=== PATIENT | female | born 1940 | race Caucasian/White ===

== ENCOUNTER 2020-02-18 09:29 | Outpatient (CLI) | payer MEDICARE, OTHER, SELFPAY ==
--- NOTE | ~2020-02-18 | XR_ITS ---
EXAMINATION: XR chest 2V 02/18/2020 09:53 INDICATION: Shortness of breath PROCEDURE: PA and lateral views of the chest COMPARISON: Comparison to multiple prior studies sequentially, with oldest reviewed study dated 05/22. FINDINGS: The lungs are clear. The cardiomediastinal silhouette is within normal limits. There are no pleural effusions. There is no pneumothorax suspected. IMPRESSION: 1: NO ACUTE CARDIOPULMONARY DISEASE. Reviewed, dictated and finalized at location A.
== END 2020-02-18 09:30 | disposition home or self-care (01) ==
PROVIDERS: PCP Family Medicine; Visit Provider Family Medicine
DX: R06.02 Shortness of breath (principal)
CPT/HCPCS: 71046

== ENCOUNTER 2020-02-25 02:59 | Emergency (ER) | payer MEDICARE, OTHER, SELFPAY ==
--- NOTE | ~2020-02-25 | XR_ITS ---
EXAMINATION: XR hip LT 2V w AP pelvis INDICATION: Left-sided groin pain TECHNIQUE: AP view of the pelvis and two views of the left hip are obtained. COMPARISON: None available FINDINGS: Bone alignment is normal. There is no fracture. The bowel gas pattern is normal. Lumbar spo ndylosis is noted. IMPRESSION: 1. No acute osseous abnormality. Reviewed, dictated and finalized at location A.
--- NOTE | ~2020-02-25 | CT_ITS ---
EXAMINATION: CT abdomen pelvis w con INDICATION: Left groin pain TECHNIQUE: Computed tomographic images of the abdomen and pelvis were obtained after the administrati on of 100 cc of Omnipaque 350 intravenous contrast. The dose-length product (DLP) was 529.79 mGy-cm. Automated exposure control and iterative reconstruction technique were employed. COMPARISON: 05/16/2015 FINDINGS: The lung bases are clear. The heart size is normal. The gallbladder is surgically absent. T here is mild enlargement of the common bile duct and central intrahepatic ducts which is likely due t o post cholecystectomy state. There is a 2.1 cm hyperenhancing lesion in the right hepatic lobe which is not significantly changed in size since the comparison CT, most consistent with a benign lesion s uch as a flash filling hemangioma or focal nodular hyperplasia. The spleen, pancreas, and adrenal gla nds are normal. There is an 8 mm cyst of the right kidney. The left kidney is unremarkable. There is calcified atherosclerosis of the aorta and many of the other arteries. No pathologically enlarged abd ominal or pelvic lymph nodes are identified. There is no free intraperitoneal gas or evidence of linda l obstruction. There is moderate lumbar spondylosis. IMPRESSION: 1. No CT correlate for the patient's symptoms. Reviewed, dictated and finalized at location A.
[2020-02-25 03:05] VITALS: BP 181/75; PULSE 55; RESP 20; TEMP 36.5; O2SAT 100
--- NOTE | 2020-02-25 03:25 | ED.EXTPRO ---
HPI - Extremity Problem General Chief complaint: Extremity Problem,Nontraumatic <Nandini Sanz MD - Last Filed: 02/28/20 09:49> Stated complaint: Left leg pain <Nandini Sanz MD - Last Filed: 02/28/20 09:49> Time Seen by Provider: 02/25/20 03:09 <Nandini Sanz MD - Last Filed: 02/28/20 09:49> Source: patient <Nandini Sanz MD - Last Filed: 02/28/20 09:49> Mode of arrival: ambulatory <Nandini Sanz MD - Last Filed: 02/28/20 09:49> Limitations: no limitations <Nandini Sanz MD - Last Filed: 02/28/20 09:49> History of Present Illness HPI Narrative: This patient is an 79 year old female who presents for evaluation of left groin pain. She reports she developed pain to her left groin yesterday. She states her pain has gotten worse and it is making it difficulty to walk. She states she could not sleep so she came to the ER. She took ibuprofen for her pain last night. Her pain currently is not as bad but she rates pain 8/10. <Nandini Sanz MD - Last Filed: 02/28/20 09:49> Related Data Allergies/Adverse reactions: Allergies Allergy/AdvReac Type Severity Reaction Status Date / Time No Known Allergies Allergy Mild Verified 02/25/20 03:11 <Nandini Sanz MD - Last Filed: 02/28/20 09:49> Review of Systems Review of Systems: All systems reviewed & are unremarkable except as noted in HPI and below <Nandini Sanz MD - Last Filed: 02/28/20 09:49> Constitutional: Constitutional: Denies chills and Denies fever(s) <Nandini Sanz MD - Last Filed: 02/28/20 09:49> Respiratory: Respiratory: Denies cough and Denies dyspnea <Nandini Sanz MD - Last Filed: 02/28/20 09:49> Gastrointestinal: Gastrointestinal: Denies abdominal pain, Denies nausea and Denies vomiting <Nandini Sanz MD - Last Filed: 02/28/20 09:49> Genitourinary: Genitourinary: Denies hematuria and Denies nocturia <Nandini Sanz MD - Last Filed: 02/28/20 09:49> [facility] Past Medical History Medical History: Medical History (Updated 02/26/20 @ 00:00 by Background Daemon) Patient denies medical problems <Nandini Sanz MD - Last Filed: 02/28/20 09:49> Surgical History Surgical History: Surgical History (Updated 02/25/20 @ 03:27 by Nandini Sanz MD) Hx of cholecystectomy <Nandini Sanz MD - Last Filed: 02/28/20 09:49> Exam Const: General: alert <Nandini Sanz MD - Last Filed: 02/28/20 09:49> Orientation/consciousness: patient oriented x3 <Nandini Sanz MD - Last Filed: 02/28/20 09:49> HENMT: Head: normocephalic and atraumatic <Nandini Sanz MD - Last Filed: 02/28/20 09:49> Face and sinus: face symmetric <Nandini Sanz MD - Last Filed: 02/28/20 09:49> Eyes: EOM: EOMs intact bilaterally <Nandini Sanz MD - Last Filed: 02/28/20 09:49> Resp: Effort & Inspection: normal respiratory effort and no retractions <Nandini Sanz MD - Last Filed: 02/28/20 09:49> Auscultation: clear to auscultation bilaterally <Nandini Sanz MD - Last Filed: 02/28/20 09:49> Cardio: Rate: regular rate <Nandini Sanz MD - Last Filed: 02/28/20 09:49> Rhythm: regular rhythm <Nandini Sanz MD - Last Filed: 02/28/20 09:49> Heart sounds: no murmurs <Nandini Sanz MD - Last Filed: 02/28/20 09:49> Skin: General skin exam: normal color <Nandini Sanz MD - Last Filed: 02/28/20 09:49> Rashes: no rashes <Nandini Sanz MD - Last Filed: 02/28/20 09:49> Neuro: General: patient oriented x3 and moves all extremities <Nandini Sanz MD - Last Filed: 02/28/20 09:49> Extrem: General: no pedal edema <Nandini Sanz MD - Last Filed: 02/28/20 09:49> Other: TTP left groin, but no swelling, no lymphadenopathy, no hernia, pain with ROM of left hip. strong palpable pedal pulses bilaterally <Nandini Sanz MD - Last Filed: 02/28/20 09:49> Psych: Mental Status: mental status grossly normal <Nandini Sanz
[2020-02-25] MEDS: KETOROLAC 15 MG/ML VIAL (*BKC) IV PUSH (03:42)
[2020-02-25 03:48] VITALS: BP 152/68; PULSE 55; RESP 20; O2SAT 100
[2020-02-25 04:08] LABS: Basophils Absolute Auto 0.1 K/mm3 (0.0-0.1); Basophils Percent Auto 0.6 % (0.2-1.2); Eosinophils Absolute Auto 0.3 K/mm3 (0-0.3); Eosinophils Percent Auto 3.8 % (0-4.4); Hematocrit 37.2 % (37.0-47.0); Hemoglobin 12.6 g/dL (12.0-15.0); Immature Granulocyte Absolute 0.02 K/mm3 (0.00-0.031); Immature Granulocyte Percent A 0.2 % (0-0.5); Lymphocytes Absolute Auto 2.67 K/mm3 (0.9-3.2); Mean Corpuscular HGB Conc 33.9 g/dl (32-36); Mean Corpuscular Hemoglobin 29.7 pg (26-34); Mean Corpuscular Volume 87.7 fl (80-100); Mean Platelet Volume 10.2 fl (7.4-10.4); Monocytes Absolute Auto 0.8 K/mm3 (0.1-0.6); Monocytes Percent Auto 9.1 % (2.6-8.5); Neutrophils Percent Auto 56.3 % (45.5-73.1); Platelet Count Result 224 k/mm3 (150-375); Red Blood Count 4.24 M/mm3 (4.2-5.4); White Blood Count 8.9 K/mm3 (4.5-10.0)
[2020-02-25 04:22] LABS: Add Urine Microscopic? YES; Appearance Urine Clear (Clear); Bacteria Urine 1+ /hpf; Bilirubin Urine Negative (Negative); Blood Urine Negative (Negative); Color Urine Yellow (Yellow); Glucose Urine UA Negative (Negative); Ketones Urine Negative (Negative); Leukocyte Esterase Ur 2+ LEU/UL (Negative); Mucus Urine Rare /lpf; Nitrate Urine Negative (Negative); Protein Urine Negative (Negative); Specific Grav Ur 1.021 (1.001-1.035); Squamous Epithelial Cell Urine Many /hpf (Few); Urobilinogen Urine Negative mg/dL (<2.0); WBC Urine 31-50 /hpf
[2020-02-25 04:29] LABS: Alanine Aminotransferase 12 U/L (4-35); Albumin Level 3.5 g/dL (3.5-5.1); Alkaline Phosphatase 50 U/L (38-126); Anion Gap 5 mmol/L (8-16); Aspartate Amino Transferase 15 U/L (14-36); Bilirubin,Total 0.3 mg/dL (0.2-1.3); Blood Urea Nitrogen 19 mg/dL (7-17); CRP 1.7 mg/dL (<1.0); Calcium 10.8 mg/dL (8.4-10.2); Carbon Dioxide 30 mmol/L (22-30); Chloride 102 mmol/L (98-107); Estimated Glomerular Filt Rate 60; Glucose 108 mg/dL (65-105); Potassium 3.2 mmol/L (3.4-5.0); Sodium 137 mmol/L (137-145)
[2020-02-25 05:11] VITALS: BP 132/89; PULSE 52; RESP 20; O2SAT 100
[2020-02-25] MEDS: MORPHINE SULFATE 4 MG/ML INJ IV PUSH (07:00)
[2020-02-25] MEDS: ONDANSETRON INJ 4 MG/2 ML VIAL IV PUSH (07:00)
[2020-02-25 07:02] VITALS: BP 176/58; PULSE 50; RESP 20; O2SAT 100
[2020-02-25 09:06] VITALS: BP 128/53; PULSE 50; RESP 16; O2SAT 100
== END 2020-02-25 09:08 | disposition home or self-care (01) ==
PROVIDERS: General Practice; Emergency Provider Emergency Medicine; PCP Family Medicine
DX: R10.32 Left lower quadrant pain (principal)
CPT/HCPCS: 36415; 73502; 74177; 80053; 81001; 85025; 86140; 87077; 87086; 87088; 87186; 96365; 96375; 99284; J0131; J1885; J2270; J2405; Q9967

== ENCOUNTER 2020-06-11 07:36 | Outpatient (CLI) | payer MEDICARE, OTHER, SELFPAY ==
--- NOTE | 2020-06-11 08:01 | ECG_ITS ---
Measurements Intervals [place] Rate: 48 P: 69 [place]: 154 QRS: 33 QRSD: 84 T: 65 QT: 415 QTc: 372 Interpretive Statements SINUS BRADYCARDIA EARLY PRECORDIAL R/S TRANSITION BORDERLINE T WAVE ABNORMALITY- ANTERIOR LEADS BASELINE ARTIFACT- III, V3-V6 ABNORMAL ECG Electronically Signed On 06-11-2020 8:09:05 ADMINISTRATIVE COORDINATOR by Mac Miles D.O.
== END 2020-06-11 07:37 | disposition home or self-care (01) ==
PROVIDERS: PCP Family Medicine; Visit Provider Family Medicine
DX: R06.00 Dyspnea, unspecified (principal); R94.31 Abnormal electrocardiogram [ECG] [EKG]
CPT/HCPCS: 93005

== ENCOUNTER 2020-07-17 14:05 | Outpatient (CLI) | payer MEDICARE, OTHER, SELFPAY ==
--- NOTE | 2020-07-22 13:27 | WPDPFTINT ---
PFT Interpretation PFT Interpretation: This PFT met all criteria for ATS standards and reproducibility FEV/FVC post bronchodilator 78% FEV1 117% FVC 100% TLC 88% RV 72% RV/TLC 36% DLCO 85% when adjusted for alveolar volume but not adjusted for hemoglobin Flow volume loops were normal Impression: Normal PFT. Clinical correlation is advised.
== END 2020-07-17 14:06 | disposition home or self-care (01) ==
LOC: ANHPFT 14:06
PROVIDERS: Family Provider Family Medicine; PCP Family Medicine; Visit Provider Family Medicine
DX: R06.02 Shortness of breath (principal)
CPT/HCPCS: 94060; 94726; 94729

== ENCOUNTER 2021-01-17 12:02 | Emergency (ER) | payer MEDICARE, OTHER, SELFPAY ==
--- NOTE | ~2021-01-17 | XR_ITS ---
EXAMINATION: XR chest 2V EXAM DATE: 01/17/2021 13:02 INDICATION: Difficulty breathing, history of asthma. TECHNIQUE: Frontal and lateral projections of the chest obtained and reviewed. Comparison is made to prior examination from 02/18/2020. FINDINGS: The lungs are clear. There are no pleural effusions. The cardiomediastinal silhouette is within normal limits. There is no pneumothorax suspected. The bones and soft tissues are unremarkab le. IMPRESSION: No acute cardiopulmonary findings. Reviewed, dictated and finalized at location B.
--- NOTE | ~2021-01-17 | CT_ITS ---
EXAMINATION: CTA chest PE protocol EXAM DATE: 01/17/2021 15:33 INDICATION: Shortness of breath, elevated d-dimer. Skin cancer. TECHNIQUE: Spiral CTA of the chest (pulmonary arteries) was performed with 100 cc Omnipaque 350 intr avenous contrast injection. Images were acquired during the pulmonary arterial phase. Coronal maxi mum intensity projection 3D-reconstructions were created by the technologist on dedicated workstation . Axial, coronal and sagittal reformatted images were reviewed. The dose-length product (DLP) for t his examination was 375.31 mGy-cm. The exposure was tailored according to patient size (auto mA exp osure control), and iterative reconstruction (ASIR) was used as additional dose reduction technique. There is no prior study for comparison. FINDINGS: Pulmonary arteries are well opacified and without intraluminal filling defects. No thora cic aortic dissection. The lungs are clear. There are no pleural or pericardial effusions. Trach eobronchial tree is patent. There is no mediastinal, hilar or axillary lymphadenopathy. There is no pneumothorax. Heart normal in size. There is moderate coronary arterial calcification, arteria l sclerosis. Right liver lobe lesion with discontinuous peripheral nodular enhancement measuring 2.3 cm, a hemangioma. Smaller fluid density lesion consistent with cyst. There is small sliding gastroes ophageal hiatal hernia. There is thoracic spondylosis without osteoblastic or osteolytic lesions román ntified. IMPRESSION: 1. No pulmonary emboli or acute cardiopulmonary findings. 2. Mild emphysema. 3. Liver hemangioma. Reviewed, dictated and finalized at location B.
[2021-01-17 12:20] VITALS: BP 107/50; PULSE 72; RESP 18; TEMP 36.9; O2SAT 100
--- NOTE | 2021-01-17 12:26 | ECG_ITS ---
Measurements Intervals [place] Rate: 62 P: -58 [place]: 99 QRS: 24 QRSD: 85 T: 97 QT: 405 QTc: 413 Interpretive Statements SINUS OR ECTOPIC ATRIAL RHYTHM WITH SHORT [place] INTERVAL EARLY PRECORDIAL R/S TRANSITION NONSPECIFIC ST & T-WAVE ABNORMALITY- HIGH LATERAL LEADS BASELINE ARTIFACT- V5 BORDERLINE ECG Electronically Signed On 01-17-2021 12:40:02 CDT by Mac Miles D.O.
[2021-01-17 12:47] LABS: Basophils Absolute Auto 0.1 K/mm3 (0.0-0.1); Basophils Percent Auto 0.7 % (0.2-1.2); Eosinophils Absolute Auto 0.1 K/mm3 (0-0.3); Eosinophils Percent Auto 1.9 % (0-4.4); Hematocrit 40.9 % (37.0-47.0); Hemoglobin 13.4 g/dL (12.0-15.0); Immature Granulocyte Absolute 0.03 K/mm3 (0.00-0.031); Immature Granulocyte Percent A 0.4 % (0-0.5); Lymphocytes Absolute Auto 1.44 K/mm3 (0.9-3.2); Lymphocytes Percent Auto 19.7 % (18.3-44.2); Mean Corpuscular HGB Conc 32.8 g/dl (32-36); Mean Corpuscular Hemoglobin 28.8 pg (26-34); Mean Platelet Volume 9.8 fl (7.4-10.4); Monocytes Absolute Auto 0.9 K/mm3 (0.1-0.6); Monocytes Percent Auto 12.4 % (2.6-8.5); Neutrophils Absolute Auto 4.7 K/mm3 (1.3-6.7); Neutrophils Percent Auto 64.9 % (45.5-73.1); Platelet Count Result 196 k/mm3 (150-375); Red Blood Count 4.65 M/mm3 (4.2-5.4); Red Cell Distribution Width 12.2 % (11.5-14.5); White Blood Count 7.3 K/mm3 (4.5-10.0)
[2021-01-17 13:00] LABS: Anion Gap 8 mmol/L (8-16); Blood Urea Nitrogen 15 mg/dL (7-17); Calcium 10.9 mg/dL (8.4-10.2); Carbon Dioxide 25 mmol/L (22-30); Chloride 103 mmol/L (98-107); Estimated CRCL calculation 45 ml/min; Estimated Glomerular Filt Rate > 60; Glucose 120 mg/dL (65-110); Potassium 3.5 mmol/L (3.4-5.0); Sodium 136 mmol/L (137-145)
--- NOTE | 2021-01-17 13:38 | ED.GENADULT ---
HPI - General Adult General Chief complaint: Shortness of Breath/Dyspnea Stated complaint: difficulty breathing Time Seen by Provider: 01/17/21 13:00 Related Data Home Medications Medication Instructions Recorded Confirmed albuterol sulfate 90 mcg/actuation 1 inh INHALATION Q4H 06/07/20 aerosol inhaler alprazolam 0.25 mg tablet 0.25 mg PO DAILY 06/07/20 Allergies Allergy/AdvReac Type Severity Reaction Status Date / Time No Known Allergies Allergy Mild Verified 01/17/21 12:24 [facility] Past Medical History Medical History Dyspnea Essential hypertension Osteoporosis Overweight (BMI 25.0-29.9) Patient denies medical problems Weight loss Surgical History Surgical History Hx of cholecystectomy Family History Family History Mother Colon cancer Heart disease Social History Social History (Updated 12/12/20 @ 09:52 by Virgen Abbott CMA) Smoking status: Never smoker Alcohol intake: never Substance use: never Gender identity (if verbalized by the patient): Female Course Vital Signs Vital signs: Vital Signs Temperature 36.9 C 01/17/21 12:20 Pulse Rate 72 01/17/21 12:20 Respiratory Rate 181 H 01/17/21 12:20 Blood Pressure 107/50 L 01/17/21 12:20 Pulse Oximetry 100 01/17/21 12:20 Temperature 36.9 C 01/17/21 12:20 Pulse Rate 72 01/17/21 12:20 Respiratory Rate 181 H 01/17/21 12:20 Blood Pressure 107/50 L 01/17/21 12:20 Pulse Oximetry 100 01/17/21 12:20 Medical Decision Making Vital Signs Vital Signs: Vital Signs Temperature 36.9 C 01/17/21 12:20 Pulse Rate 72 01/17/21 12:20 Respiratory Rate 181 H 01/17/21 12:20 Blood Pressure 107/50 L 01/17/21 12:20 Pulse Oximetry 100 01/17/21 12:20 Temperature 36.9 C 01/17/21 12:20 Pulse Rate 72 07/29/21 12:20 Respiratory Rate 181 H 01/17/21 12:20 Blood Pressure 107/50 L 01/17/21 12:20 Pulse Oximetry 100 01/17/21 12:20 Lab Data Result diagrams: 01/17/21 12:34 01/17/21 12:34 Labs: Lab Results 01/17/21 01/17/21 Range/Units 12:34 12:34 WBC 7.3 (4.5-10.0) K/mm3 RBC 4.65 (4.2-5.4) M/mm3 Hgb 13.4 (12.0-15.0) g/dL Hct 40.9 (37.0-47.0) % MCV 88.0 (80-100) fl MCH 28.8 (26-34) pg MCHC 32.8 (32-36) g/dl RDW 12.2 (11.5-14.5) % Plt Count 196 (150-375) k/mm3 MPV 9.8 (7.4-10.4) fl Immature Gran % (Auto) 0.4 (0-0.5) % Neut % (Auto) 64.9 (45.5-73.1) % Lymph % (Auto) 19.7 (18.3-44.2) % Brooke % (Auto) 12.4 H (2.6-8.5) % Eos % (Auto) 1.9 (0-4.4) % Baso % (Auto) 0.7 (0.2-1.2) % Lymph # (Auto) 1.44 (0.9-3.2) K/mm3 Brooke # (Auto) 0.9 H (0.1-0.6) K/mm3 Eos # (Auto) 0.1 (0-0.3) K/mm3 Baso # (Auto) 0.1 (0.0-0.1) K/mm3 Abs Immat Gran (auto) 0.03 (0.00-0.031) K/mm3 Absolute Neuts (auto) 4.7 (1.3-6.7) K/mm3 Absolute Nucleated RBC 0.0 (0.0-0.012) K/mm3 Nucleated RBC % 0.0 (0.0-0.2) % Sodium 136 L (137-145) mmol/L Potassium 3.5 (3.4-5.0) mmol/L Chloride 103 (98-107) mmol/L Carbon Dioxide 25 (22-30) mmol/L Anion Gap 8 (8-16) mmol/L BUN 15 (7-17) mg/dL Creatinine 0.80 (0.7-1.0) mg/dL Estim Creat Clear Calc 45 ml/min Estimated GFR > 60 (59 - ) Glucose 120 H (65-110) mg/dL Calcium 10.9 H (8.4-10.2) mg/dL ECG Data EKG #1: Attestation: I personally reviewed and interpreted this ECG as follows: ECG completion date: 01/17/21 ECG completion time: 12:37 EKG Interpretation: normal rate, sinus rhythm, no ectopy and NL axis Discharge Plan Discharge Prescriptions: No Action alprazolam 0.25 mg tablet 0.25 mg PO DAILY RF: 0 albuterol sulfate 90 mcg/actuation HFA aerosol inhaler 1 inh inhalation Q4H RF: 0 olopatadine [Delilah
--- NOTE | 2021-01-17 13:42 | PC.NURSE ---
lab, marcelina, d dimer, bnp
--- NOTE | 2021-01-17 13:47 | ED.GENADULT ---
HPI - General Adult General Chief complaint: Shortness of Breath/Dyspnea Stated complaint: difficulty breathing Time Seen by Provider: 01/17/21 13:00 Source: patient History of Present Illness HPI narrative: Patient is a 80 y/o female complaining of moderate SOB since yesterday. She states that inhaler helps slightly. She has some cough, but no chest pain or fever. She states that she has history of asthma. Related Data Home Medications Medication Instructions Recorded Confirmed albuterol sulfate 90 mcg/actuation 1 inh INHALATION Q4H 06/07/20 aerosol inhaler alprazolam 0.25 mg tablet 0.25 mg PO DAILY 06/07/20 Allergies Allergy/AdvReac Type Severity Reaction Status Date / Time No Known Allergies Allergy Verified 01/17/21 15:08 Review of Systems Constitutional: Constitutional: Denies chills, Denies fever(s), Denies headache(s) and Denies weakness Eyes: Eyes: Denies blurry vision ENT: Denies headache(s) and Denies neck pain Cardiovascular: Cardiovascular: Denies chest pain and Reports dyspnea Respiratory: Respiratory: Denies cough and Reports dyspnea Gastrointestinal: Gastrointestinal: Denies abdominal pain, Denies diarrhea, Denies nausea and Denies vomiting Genitourinary: Genitourinary: Denies hematuria and Denies dysuria Musculoskeletal: Musculoskeletal: Denies back pain and Denies neck pain Neurologic: Denies headache(s) and Denies weakness PMFSH Past Medical History Medical History Dyspnea Essential hypertension Osteoporosis Overweight (BMI 25.0-29.9) Patient denies medical problems Weight loss Surgical History Surgical History Hx of cholecystectomy Family History Family History Mother Colon cancer Heart disease Social History Social History Smoking status: Never smoker Alcohol intake: never Substance use: never Gender identity (if verbalized by the patient): Female Exam Const: General: no acute distress and well developed Orientation/consciousness: oriented to person, oriented to place, oriented to time and patient oriented x3 HENMT: Head: normocephalic Ears: external ears normal General nose exam: Normal external nose present Eyes: General: appearance normal, both eyes and all related structures Conjunctivae: conjunctivae normal Neck: Neck: normal visual inspection and full ROM Chest: Chest palpation & inspection: normal inspection of the chest and no tenderness Resp: Effort & Inspection: normal respiratory effort Auscultation: clear to auscultation bilaterally Cardio: Rate: regular rate Rhythm: regular rhythm GI: GI Palp: No abdominal tenderness and Yes Soft to palpation Skin: General skin exam: normal color and turgor normal Neuro: General: oriented to person, oriented to place, oriented to time and patient oriented x3 Cognition (Neuro): normal cognition Extrem: General: normal to inspection, full ROM and no pedal edema Psych: Appearance: grossly normal Mental Status: mental status grossly normal Affect: normal affect Course Vital Signs Vital signs: Vital Signs Temperature 36.9 C 01/17/21 12:20 Pulse Rate 72 01/17/21 12:20 Respiratory Rate 18 01/17/21 12:20 Blood Pressure 107/50 L 01/17/21 12:20 Pulse Oximetry 100 01/17/21 12:20 Temperature 36.9 C 01/17/21 12:20 Pulse Rate 60 01/17/21 16:51 Respiratory Rate 16 01/17/21 16:51 Blood Pressure 167/89 H 01/17/21 16:51 Pulse Oximetry 95 01/17/21 16:51 Medical Decision Making Vital Signs Vital Signs: Vital Signs Temperature 36.9 C 01/17/21 12:20 Pulse Rate 72 01/17/21 12:20 Respiratory Rate 18 01/17/21 12:20 Blood Pressure 107/50 L 01/17/21 12:20 Pulse Oximetry 100 01/17/21 12:20 Temperature 36.9 C 01/17/21 12:20 Pulse Rate
[2021-01-17 14:04] LABS: D Dimer 0.75 ug/mL (<0.48)
[2021-01-17 14:09] LABS: NT Pro B Type Natriuretic Pept 172 pg/mL (5-100)
[2021-01-17 14:56] VITALS: BP 156/66; PULSE 65; RESP 16; O2SAT 100
[2021-01-17 16:51] VITALS: BP 167/89; PULSE 60; RESP 16; O2SAT 95
== END 2021-01-17 16:53 | disposition home or self-care (01) ==
PROVIDERS: Emergency Provider Emergency Medicine; PCP Family Medicine
DX: R06.02 Shortness of breath (principal); I10 Essential (primary) hypertension; M81.0 Age-related osteoporosis without current pathological fracture; R94.31 Abnormal electrocardiogram [ECG] [EKG]
CPT/HCPCS: 36415; 71046; 71275; 80048; 83880; 85025; 85380; 93005; 99284; Q9967

== ENCOUNTER 2021-11-24 02:30 | Inpatient (IN) | payer MEDICARE, OTHER, SELFPAY ==
[2021-11-24] VITALS (19 sets, daily range): BP systolic 100–139; BP diastolic 59–84; PULSE 88–117; RESP 17–23; TEMP 35.9–37.2; O2SAT 96–99
--- NOTE | ~2021-11-24 | CT_ITS ---
EXAMINATION: CTA chest PE protocol DATE: 11/24/2021 13:59 INDICATION: sob, elevated d dimer TECHNIQUE: Computed tomography angiography (CTA) of the chest was performed with 100 mL Omnipaque-350 intravenous contrast timed to evaluate the pulmonary arteries. Coronal maximum intensity projection 3D-reconstructions were created by the technologist. The dose-length product (DLP) was 537.17 mGy-cm. Automated exposure control and iterative reconstruction technique were employed. COMPARISON: 01/17/2021. FINDINGS: Study quality: Adequate. Pulmonary arteries: No pulmonary emboli detected. Pulmonary arterial dilation as can be seen with pul monary arterial hypertension. Thoracic aorta: Mild arch plaque and calcification. Lung parenchyma and airways: Clear. Thoracic inlet, axillae and chest wall: Unremarkable. Mediastinum: Borderline prevascular lymphadenopathy. Hiatal hernia. Heart and pericardium: Mild cardiomegaly. Coronary artery calcifications: Moderate. Pleura: Unremarkable. Upper abdomen: Liver cyst and hemangioma. Otherwise unremarkable. Bones: No acute osseous finding. IMPRESSION: No CT evidence of acute pulmonary embolus. Reviewed, dictated and finalized at location K.
--- NOTE | ~2021-11-24 | XR_ITS ---
EXAMINATION: XR chest 2V DATE: 11/24/2021 03:24 INDICATION: Shortness of breath and cough TECHNIQUE: PA and lateral views of the chest are obtained. COMPARISON: 01/17/2021 FINDINGS: The lungs are free of acute opacities. There is no pleural effusion or pneumothorax. The ca rdiomediastinal silhouette is normal. There is moderate thoracic spondylosis. IMPRESSION: 1. No acute cardiopulmonary abnormality. Reviewed, dictated and finalized at location A.
--- NOTE | 2021-11-24 02:39 | ECG_ITS ---
Measurements Intervals [place] Rate: 108 P: [place]: 0 QRS: 40 QRSD: 80 T: 56 QT: 305 QTc: 410 Interpretive Statements ATRIAL FIBRILLATION WITH RAPID VENTRICULAR RESPONSE LOW QRS VOLTAGE IN EXTREMITY LEADS [QRS DEFLECTION < 0.5 mV IN LIMB LEADS] ABNORMAL RHYTHM ECG COMPARED TO ECG 01/17/2021 12:37:34 ATRIAL FIBRILLATION NOW PRESENT Electronically Signed On 11-24-2021 8:59:12 CDT by Chantell Hensley M.D.
[2021-11-24 02:58] LABS: Basophils Absolute Auto 0.1 K/mm3 (0.0-0.1); Basophils Percent Auto 0.5 % (0.2-1.2); Eosinophils Absolute Auto 0.2 K/mm3 (0-0.3); Eosinophils Percent Auto 1.9 % (0-4.4); Hematocrit 39.8 % (37.0-47.0); Hemoglobin 13.2 g/dL (12.0-15.0); Immature Granulocyte Absolute 0.03 K/mm3 (0.00-0.031); Immature Granulocyte Percent A 0.3 % (0-0.5); Lymphocytes Absolute Auto 0.74 K/mm3 (0.9-3.2); Lymphocytes Percent Auto 7.1 % (18.3-44.2); Mean Corpuscular HGB Conc 33.2 g/dl (32-36); Mean Corpuscular Hemoglobin 29.5 pg (26-34); Mean Platelet Volume 9.3 fl (7.4-10.4); Monocytes Absolute Auto 0.9 K/mm3 (0.1-0.6); Monocytes Percent Auto 8.1 % (2.6-8.5); Neutrophils Absolute Auto 8.6 K/mm3 (1.3-6.7); Neutrophils Percent Auto 82.1 % (45.5-73.1); Platelet Count Result 205 k/mm3 (150-375); Red Blood Count 4.47 M/mm3 (4.2-5.4); White Blood Count 10.4 K/mm3 (4.5-10.0)
[2021-11-24 03:09] LABS: Alanine Aminotransferase 14 U/L (6-35); Albumin Level 3.9 g/dL (3.5-5.1); Alkaline Phosphatase 56 U/L (38-126); Anion Gap 2 mmol/L (8-16); Aspartate Amino Transferase 20 U/L (14-36); Bilirubin,Total 0.6 mg/dL (0.2-1.3); Blood Urea Nitrogen 15 mg/dL (7-17); Calcium 10.4 mg/dL (8.4-10.2); Carbon Dioxide 27 mmol/L (22-30); Chloride 104 mmol/L (98-107); Estimated CRCL calculation 46 ml/min; Estimated Glomerular Filt Rate > 60; Glucose 125 mg/dL (65-110); Potassium 3.5 mmol/L (3.4-5.0); Sodium 133 mmol/L (137-145)
--- NOTE | 2021-11-24 03:11 | ED.SOB ---
HPI - SOB/Dyspnea General Chief Complaint: Shortness of Breath/Dyspnea Stated Complaint: SOB Time Seen by Provider: 11/24/21 02:48 Source: patient Mode of arrival: ambulatory Limitations: no limitations History of Present Illness HPI Narrative: This is an 81 year old female with history of COPD and hypertension who presents for evaluation of shortness of breath. PAtient states she has been working outside alot this week, and this is causing her to have shortness of breath. She reports her shortness of breath is progressively worsening. She is unable to sleep and she reports wheezing. She complains she is having difficulty talking due to her shortness of breath. She also reports fever 100 F, fatigue and coughing today. She also has constant sinus drainage. She has been using her nebulizer 3 times a day. She denies chest pain. She reports nausea but denies vomiting or diarrhea. She has chronic leg edema. She states she was recently seen her her new PCP and they heard something abnormal with her heart so they are ordering test. She is not sure of diagnosis of atrial fibrillation in the past but she was found to be in afib in triage. She denies sick contacts MD elicited complaint: shortness of breath Pertinent past history: COPD Timing: constant Exacerbating factors: exertion and coughing Related Data Home Medications Medication Instructions Recorded Confirmed albuterol sulfate 90 mcg/actuation 1 inh inhalation Q4H 06/07/20 11/08/21 aerosol inhaler Allergies Allergy/AdvReac Type Severity Reaction Status Date / Time Iodinated Contrast Media Allergy Severe Other Verified 11/24/21 04:29 Review of Systems Review of Systems: All systems reviewed & are unremarkable except as noted in HPI and below Constitutional: Constitutional: Reports chills, Reports fatigue, Reports fever(s) and Reports weakness ENT: Reports nasal congestion Cardiovascular: Cardiovascular: Denies chest pain and Reports rapid heart rate Respiratory: Respiratory: Reports chest congestion, Reports cough, Reports dyspnea and Reports wheezing Gastrointestinal: Gastrointestinal: Denies abdominal pain, Denies diarrhea, Reports nausea and Denies vomiting Neurologic: Denies headache(s) and Denies focal weakness PMFSH Past Medical History Medical History Dyspnea Encounter for immunization Essential hypertension Osteoporosis Overweight (BMI 25.0-29.9) Patient denies medical problems Weight loss Surgical History Surgical History Hx of cholecystectomy Family History Family History Mother Colon cancer Heart disease Social History Social History Smoking status: Never smoker Alcohol intake: never Substance use: never Gender identity (if verbalized by the patient): Female Exam Const: General: no acute distress and ill appearing Orientation/consciousness: patient oriented x3 HENMT: Head: normal to inspection Ears: external ears normal General nose exam: Normal external nose present Face and sinus: normal facial exam Eyes: Conjunctivae: conjunctivae normal Pupils: Equal, round and reactive pupils present EOM: EOMs intact bilaterally Resp: Effort & Inspection: normal respiratory effort, not labored, no retractions and not tachypneic Auscultation: clear to auscultation bilaterally and breath sounds present Cardio: Rate: tachycardic Rhythm: abnormal rhythm Heart sounds: no murmurs GI: GI Palp: Yes Soft to palpation, No Tenderness to palpation present (GI), No Guarding due to palpation present (GI) and No Rigid due to palpation Auscultation: normal bowel sounds Back/Spine/Pelvis: Back: no CVA tenderness Skin: General skin exam: normal color Rashes: no rashes Extrem: General: normal to inspecti
[2021-11-24 03:17] LABS: Alveolar/Arterial O2 Gradient 37.4 mmHg; Base Excess ABG 0.9 mEq/l (+/-2.0); Carboxyhemoglobin 0.6 % THb (0-2.0); Fractional Inspired Oxygen 21 %; HCO3 ABG 23.5 mEq/l (22.0-26.0); Methemoglobin ABG 0.4 %THb (0-1.5); PCO2 ABG 31.8 mmHg (35.0-45.0); PO2 ABG 74.3 mmHg (80.0-100.0); PO2 FiO2 Ratio Arterial Blood 3.54 %; Total Hemoglobin 14.2 g/dL (12.0-18.0); pH ABG 7.487 (7.350-7.450)
[2021-11-24 03:18] LABS: Device ROOM AIR; Modified Allen's Test Pass; Site Drawn RIGHT RADIAL
[2021-11-24 03:53] LABS: INR 1.1
[2021-11-24 03:54] LABS: Partial Thromboplastin Time 31.4 SECONDS (22.3-36.8)
[2021-11-24 03:57] LABS: D Dimer 0.89 ug/mL (<0.48)
[2021-11-24 03:59] LABS: Lactic Acid Reflex 1.1 mmol/L (0.7-2.0)
[2021-11-24] MEDS: SODIUM CHLORIDE 0.9% IV 1,000 ML 999 ML IV CONT (03:59)
[2021-11-24 04:10] LABS: Lipase 42 U/L (23-300); Magnesium 1.7 mg/dL (1.6-2.3)
--- NOTE | 2021-11-24 04:17 | PC.NURSE ---
Pt taken to CT via stretcher at this time.
[2021-11-24 04:23] LABS: NT Pro B Type Natriuretic Pept 994 pg/mL (5-100); Troponin I < 0.012 ng/mL (0.000-0.034)
[2021-11-24 04:26] LABS: Add Urine Microscopic? YES; Appearance Urine Clear (Clear); Bilirubin Urine Negative (Negative); Blood Urine Negative (Negative); Color Urine Yellow (Yellow); Glucose Urine UA Negative (Negative); Ketones Urine Negative (Negative); Leukocyte Esterase Ur Trace LEU/UL (Negative); Nitrate Urine Negative (Negative); Protein Urine Negative (Negative); Specific Grav Ur >= 1.030 (1.001-1.035); Urobilinogen Urine 0.2 mg/dL (<2.0); pH Urine 5.5 (5.0-9.0)
[2021-11-24] MEDS: ENOXAPARIN 80 MG/0.8 ML SYRINGE 75 MG SUB-Q (04:56)
[2021-11-24 05:02] LABS: Influenza A QL RT-PCR Negative (Negative); Influenza B QL RT-PCR Negative (Negative); SARS-CoV-2 RNA PCR Negative
[2021-11-24] MEDS: dilTIAZem HCl INJ 25 MG/5 ML VIAL 10 MG IV PUSH (05:03)
[2021-11-24 05:04] LABS: Bacteria Urine Trace /hpf; Mucus Urine Rare /lpf; RBC Urine 0-2 /hpf (0-2); Squamous Epithelial Cell Urine Occasional /hpf (Few)
[2021-11-24] MEDS: dilTIAZem 100 MG/100 ML 100 MG/100 ML BAG IV CONT (05:56)
--- NOTE | 2021-11-24 06:30 | PC.NURSE ---
Attempted to give report to IMU at this time. Samantha CALVERT is in pt room, will call back when available.
--- NOTE | 2021-11-24 06:54 | PC.NURSE ---
This patient, Linette Estrella, was admitted to IMU Room 214-01 on 11/24/21 at 0650. Patient oriented to hospital policies and general routines including ID bracelet, bed and alarms, visiting hours, pain management, procedures, bathroom and other care routines, personal items, smoking policy, room service/diet, and visiting hours. Information on how to activate the Rapid Response Team has been discussed. Patient is encouraged to report perceived risks to care and to ask questions if they do not understand what they are told or what they should do.
--- NOTE | 2021-11-24 08:13 | PM.IMHP ---
H&P: HPI History of Present Illness Date/Time: 11/24/21 08:13 Chief Complaint: SOB Narrative: 81-year-old female presents to the emergency room with shortness of breath. Patient states that she has been having difficulty breathing in general since she had what she presumes was a COVID infection a couple of years ago, however, while outside yesterday weeding her garden, she became acutely short of breath was unable to speak and had to come into the house to take a breathing treatment and lie down. Overnight she woke wheezing and had had no relief from the nebulizer treatment so she sought medical attention. Patient reports that she also had chills yesterday, no quantified fever, but felt unwell. She reports that in the past when feeling this way she was diagnosed with pneumonia. She denies any other symptoms on extensive 14 point review. Patient does state that she was recently seen by her new PCP Dr. Tolentino who recommended for her to have a Holter monitor placed. Patient is found to the emergency room to be in AFib RVR. HR 110s WBC is 10.4 with a left shift. ABG showed a respiratory alkalosis. Corrected calcium was 10.5. ProBNP of 994. CTA w mild cardiomegaly moderate CAD, and pulmonary arterial dilation but otherwise unremarkable. Review of Systems Review of Systems: 14 point review of systems negative except for above mentioned HPI PMFSH Past Medical History Medical History (Updated 11/24/21 @ 16:47 by Deepa Mariscal MD) Asthma Dyspnea Encounter for immunization Essential hypertension Osteoporosis Overweight (BMI 25.0-29.9) Weight loss Surgical History Surgical History Hx of cholecystectomy Family History Family History (Updated 11/24/21 @ 13:51 by Chantell Hensley MD) Mother Colon cancer Heart disease CHF Father Old age Social History Social History (Updated 11/24/21 @ 13:52 by Chantell Hensley MD) Smoking status: Never smoker Additional smoking assessment comments: Exposed to secondhand smoke her and father Alcohol intake: never Substance use: never Gender identity (if verbalized by the patient): Female Spiritual care concerns: No Meds Home Medications and Allergies Home Medications Medication Instructions Recorded Confirmed Type albuterol sulfate 90 mcg/actuation 1 inh inhalation Q4H PRN Shortness 12/17/20 06/05/22 History aerosol inhaler Of Breath potassium chloride 10 mEq 10 meq PO .TUES and THURS #90 tabs 04/08/21 11/24/21 Rx tablet,extended release ibandronate 150 mg tablet 150 mg PO MONTHLY #14 tabs 11/08/21 11/24/21 Rx aspirin 81 mg tablet,delayed 81 mg PO DAILY 11/24/21 11/24/21 History release indapamide 1.25 mg tablet 1.25 mg PO DIRECTED PRN swelling 11/24/21 11/24/21 History Allergies Allergy/AdvReac Type Severity Reaction Status Date / Time Iodinated Contrast Media Allergy Severe Other Verified 11/24/21 04:29 Vital Signs Vital Signs - 24 hr 11/24/21 02:34 11/24/21 02:43 11/24/21 03:44 Temperature 96.6 F L Pulse Rate 116 H 114 H Respiratory Rate 20 21 H Blood Pressure 121/81 138/68 Pulse Oximetry 98 98 Oxygen Delivery Room Air Room Air 11/24/21 04:35 11/24/21 05:01 11/24/21 05:09 Temperature Pulse Rate 110 H 117 H 101 H Respiratory Rate 22 H 22 H 21 H Blood Pressure 139/82 Pulse Oximetry 96 97 96 Oxygen Delivery 11/24/21 05:24 11/24/21 05:32 11/24/21 05:56 Temperature Pulse Rate 89 95 109 H Respiratory Rate 17 19 Blood Pressure 100/83 133/68 118/76 Pulse Oximetry 96 98 Oxygen Delivery 11/24/21 06:20 11/24/21 06:45 11/24/21 07:03 Temperature 98.8 F Pulse Rate 107 H 103 H 104 H Respiratory Rate 19 23 H 22 H Blood Pressure 126/62 124/59 L 119/59 L Pulse Oximetry 99 97 98 Oxygen Delivery Exam Const: General: comfortable and no acute distress HENMT: General nose exam: Normal nares present Mouth: Ye
[2021-11-24] MEDS: methylPREDNISolone SOD SUCC 40 MG VIAL IV PUSH ×2 (08:44→12:26)
[2021-11-24] MEDS: diphenhydrAMINE HCl INJ 50 MG/ML VIAL IV PUSH (12:26)
--- NOTE | 2021-11-24 12:48 | PM.CNCAR ---
Assessment and Plan Assessment and plan (1) Atrial fibrillation, new onset: Code(s): I48.91 - Unspecified atrial fibrillation Status: Acute Assessment and Plan: Elderly fairly healthy female with new onset of AFib RVR, perhaps related to COPD exacerbation but may have ambient problems with AFib. Reviewed AFib, evaluation, treatment options, risk of cardioembolic events, anticoagulation etc. with the patient. Change IV Cardizem to p.o. Cardizem 180 mg daily Appears a good candidate for oral AC. Add Eliquis 5 mg BID, if covered by insurance Discontinue aspirin Will see how patient does with rate control and anticoagulation strategy. If she remains symptomatic as an outpatient we can proceed with a cardioversion after 4 weeks of anticoagulation (2) COPD exacerbation: Code(s): J44.1 - Chronic obstructive pulmonary disease with (acute) exacerbation Status: Acute Assessment and Plan: Patient had a low-grade fever and chills, has some elevated white count, appears to have a COPD exacerbation plus possible bronchitis. Evaluation treatment per hospitalists CTA pending History of Present Illness History of Present Illness Consult date/time: 11/24/21 12:48 Reason For Visit: New Onset Atrial Fibrillation w/RVR Narrative: Linette Estrella is an 81-year-old female whom I was asked to see at the request of Dr. Sanz for my advice and opinion regarding her new onset of atrial fibrillation, consultation. The patient is healthy except for some asthma/COPD. She has noted brief palpitations for years. When she saw Dr. Tolentino about a week and half ago on auscultation there was some irregularity so Dr. Sen has her scheduled to get a monitor (?) In our office tomorrow and started her on aspirin. The patient has been working hard on yard work and found that she has problems with ECHEVARRIA and she could feel her heart racing at times. Last night she could not breathe, was very wheezy, had a cough, a low-grade temperature of a 100?, had chills and came to the emergency room. She was found to be in new onset AFib RVR, and also wheezing. She was given IV steroids and started on a Cardizem gtt 5 mg/hr and is feeling better. No history of any chest pain, heart disease, falls, GI bleeding. Questionable stroke when she was around 51 after syncopal episode. Review of Systems Constitutional: Constitutional: Reports fatigue Eyes: Eyes: Reports no additional eye complaints ENT: Denies epistaxis and Denies nasal congestion Cardiovascular: Cardiovascular: Denies chest pain, Reports leg edema, Denies lightheadedness and Reports palpitations Respiratory: Respiratory: Reports cough, Reports dyspnea, Reports dyspnea on exertion and Reports wheezing Gastrointestinal: Gastrointestinal: Denies abdominal pain and Denies hematochezia Genitourinary: Genitourinary: Reports no additional female genitourinary complaints Musculoskeletal: Musculoskeletal: Reports no additional musculoskeletal complaints Integumentary/Breasts: Skin/Breast: Denies rash Neurologic: Denies vertigo Psychiatric: Psychiatric: Denies behavioral changes [facility] Past Medical History Medical History Dyspnea Encounter for immunization Essential hypertension Osteoporosis Overweight (BMI 25.0-29.9) Patient denies medical problems Weight loss Surgical History Surgical History Hx of cholecystectomy Family History Family History (Updated 11/24/21 @ 13:51 by Chantell Hensley MD) Mother Colon cancer Heart disease CHF Father Old age Social History Social History (Updated 11/24/21 @ 13:52 by Chantell Hensley MD) Smoking status: Never smoker Additional smoking assessment comments: Exposed to secondhand smoke her husban
[2021-11-24] MEDS: dilTIAZem HCL CD 180 MG CAP.ER.24H PO (15:29)
[2021-11-24] MEDS: levoFLOXacin 500 MG TABLET PO (17:30)
[2021-11-24] MEDS: APIXABAN 5 MG TABLET PO (22:21)
[2021-11-25] VITALS (16 sets, daily range): BP systolic 100–133; BP diastolic 59–84; PULSE 66–99; RESP 18–22; TEMP 36.6–37.4; O2SAT 93–98
[2021-11-25 05:01] LABS: Basophils Percent Auto 0.1 % (0.2-1.2); Hematocrit 35.6 % (37.0-47.0); Hemoglobin 12.3 g/dL (12.0-15.0); Immature Granulocyte Absolute 0.04 K/mm3 (0.00-0.031); Immature Granulocyte Percent A 0.5 % (0-0.5); Lymphocytes Absolute Auto 0.72 K/mm3 (0.9-3.2); Lymphocytes Percent Auto 8.4 % (18.3-44.2); Mean Corpuscular HGB Conc 34.6 g/dl (32-36); Mean Corpuscular Volume 86.8 fl (80-100); Mean Platelet Volume 9.6 fl (7.4-10.4); Monocytes Absolute Auto 0.7 K/mm3 (0.1-0.6); Monocytes Percent Auto 7.7 % (2.6-8.5); Neutrophils Absolute Auto 7.2 K/mm3 (1.3-6.7); Neutrophils Percent Auto 83.3 % (45.5-73.1); Platelet Count Result 194 k/mm3 (150-375); White Blood Count 8.6 K/mm3 (4.5-10.0)
[2021-11-25 05:19] LABS: Alanine Aminotransferase 13 U/L (6-35); Albumin Level 3.3 g/dL (3.5-5.1); Alkaline Phosphatase 48 U/L (38-126); Anion Gap 3 mmol/L (8-16); Aspartate Amino Transferase 17 U/L (14-36); Bilirubin,Total 0.4 mg/dL (0.2-1.3); Blood Urea Nitrogen 18 mg/dL (7-17); CRP 7.2 mg/dL (<1.0); Carbon Dioxide 27 mmol/L (22-30); Chloride 106 mmol/L (98-107); Estimated CRCL calculation 44 ml/min; Estimated Glomerular Filt Rate > 60; Glucose 142 mg/dL (65-110); Magnesium 1.8 mg/dL (1.6-2.3); Potassium 3.5 mmol/L (3.4-5.0); Sodium 136 mmol/L (137-145)
--- NOTE | 2021-11-25 06:00 | ECHO_ITS ---
Patient Info Name: Linette Estrella Age: 81 years : 1940 Gender: Female Ht: 62 in Wt: 166 lbs BSA: 1.84 m2 HR: 89 bpm BP: 133 / 84 mmHg Technical Quality: Good Exam Date: 11/25/2021 11:25 AM Exam Location: [facility] Patient Status: Outpatient Admit Date: 11/24/2021 Staff Ordering Physician: Nandini Sanz MD Mysql Dba: Shameka Keyes RDCS Attending Provider: Joanne Chance MD Referring Physician: Umu ALCARAZ; Exam Type: CA echo doppler color flow Study Info Indications I48.1 - Persistent atrial fibrillation Complete two-dimensional, color flow and Doppler transthoracic echocardiogram is performed. Summary 1. Complete two-dimensional, color flow and Doppler transthoracic echocardiogram is performed. 2. Left ventricular systolic function is normal, estimated at 65-70%. 3. The left ventricular diastolic function is abnormal. 4. Left atrial chamber dimension is severely enlarged. 5. There is trace mitral valve regurgitation. 6. There is mild tricuspid valve regurgitation. 7. No pulmonary hypertension, estimated pulmonary arterial systolic pressure is 31 mmHg. Left Ventricle Left ventricular chamber dimension is normal. Left ventricular systolic function is normal, estimated at 65-70%. There is no increased left ventricular wall thickness. Left ventricular septal wall motion is normal. The left ventricular diastolic function is abnormal. Right Ventricle Right ventricular chamber dimension is normal. Right ventricular systolic function is normal. Left Atria Left atrial chamber dimension is severely enlarged. Right Atria Right atrial chamber dimension is normal. Atrial Septum Intact interatrial septum visualized by color flow imaging. Aortic Valve The aortic valve is trileaflet. There is no aortic valve stenosis. There is no aortic valve regurgitation. There is mild aortic valve calcification. Pulmonic Valve The pulmonic valve is normal. There is no pulmonic valve stenosis. There is no pulmonic regurgitation. Mitral Valve The mitral valve has normal leaflets. There is no mitral valve stenosis. There is trace mitral valve regurgitation. Tricuspid Valve The tricuspid valve leaflets are normal. There is no significant tricuspid valve stenosis. There is mild tricuspid valve regurgitation. No pulmonary hypertension, estimated pulmonary arterial systolic pressure is 31 mmHg. Pericardium/Pleural The pericardium appears normal. There is no pericardial effusion. Inferior Vena Cava Normal inferior vena cava with >50% collapse upon inspiration consistent with Empty right atrial pressure, 5 mmHg. Aorta The aortic root size at the sinus of Valsalva is normal. The prox ascending aorta size is normal. Left Ventricular Outflow Tract Name Value Normal LVOT 2D LVOT Diameter 2.0 cm LVOT Doppler LVOT Peak Gradient 8 mmHg LVOT Mean Gradient 5 mmHg LVOT VTI 28 cm LVOT VTI/AV VTI Ratio 0.9 LVOT Stroke Volume
--- NOTE | 2021-11-25 09:19 | PM.PNCARD ---
Progress Note: A&P Assessment and Plan (1) Atrial fibrillation, new onset: Code(s): I48.91 - Unspecified atrial fibrillation Status: Acute Assessment and Plan: Elderly fairly healthy female with new onset of AFib RVR, perhaps related to COPD exacerbation but may have ambient problems with AFib. Heart rate is well controlled with oral diltiazem. Also tolerating Eliquis to this point. Awaiting echocardiogram. From a cardiac perspective, Okay for discharge if echo unremarkable. Potassium was low today and will give her 40 mEq p.o. x1 Will see how patient does with rate control and anticoagulation strategy. If she remains symptomatic as an outpatient we can proceed with a cardioversion after 4 weeks of anticoagulation (2) COPD exacerbation: Code(s): J44.1 - Chronic obstructive pulmonary disease with (acute) exacerbation Status: Acute Assessment and Plan: Patient had a low-grade fever and chills, has some elevated white count, appears to have a COPD exacerbation plus possible bronchitis. Evaluation treatment per hospitalists CTA pending Subjective Date/time seen: 11/25/21 09:19 Interval history: 81-year-old with atrial fibrillation Date of service 11/25/2021: Feels okay. Just feels a little jittery overall. No chest pain or shortness of breath Review of Systems Constitutional: Constitutional: Reports fatigue Eyes: Eyes: Reports no additional eye complaints ENT: Denies vertigo, Denies epistaxis and Denies nasal congestion Cardiovascular: Cardiovascular: Denies chest pain, Reports leg edema, Denies lightheadedness, Reports palpitations, Reports dyspnea and Reports dyspnea on exertion Respiratory: Respiratory: Reports cough, Reports dyspnea, Reports dyspnea on exertion and Reports wheezing Gastrointestinal: Gastrointestinal: Denies abdominal pain and Denies hematochezia Genitourinary: Genitourinary: Reports no additional female genitourinary complaints Musculoskeletal: Musculoskeletal: Reports no additional musculoskeletal complaints Integumentary/Breasts: Skin/Breast: Denies rash Neurologic: Denies behavioral changes and Denies vertigo Psychiatric: Psychiatric: Denies behavioral changes Endocrine: Endocrine: Reports fatigue and Reports palpitations Allergic/Immunologic: Allergic/Immunologic: Reports wheezing Exam Const: General: comfortable and in distress Other: Pleasant chatty older female who is in no distress HENMT: Mouth: Yes moist mucous membranes Eyes: EOM: EOMs intact bilaterally Neck: Neck: supple and no JVD Thyroid: thyroid normal Carotids: no bruits Resp: Effort & Inspection: normal respiratory effort Auscultation: clear to auscultation bilaterally Cardio: Rate: regular rate Rhythm: abnormal rhythm irregularly irregular Heart sounds: no murmurs Skin: General skin exam: no rashes or lesions noted Neuro: Speech: No normal speech (Spastic dysphonia) Motor exam (neuro): Normal motor muscle tone present throughout Extrem: General: edema Other: Mild pedal edema and pretibial edema. Dorsalis pedis pulses are intact Psych: Mental Status: mental status grossly normal Objective Data Vital Signs Vital Signs: Vital Signs - 24 hr 11/24/21 10:00 11/24/21 12:00 11/24/21 12:00 Temperature 37.2 C Pulse Rate 95 93 Respiratory Rate 20 Blood Pressure 121/78 Pulse Oximetry 97 Oxygen Delivery Room Air 11/24/21 12:00 11/24/21 14:00 11/24/21 16:00 Temperature 36.8 C Pulse Rate 113 H 92 113 H Respiratory Rate 20 Blood Pressure 108/66 Pulse Oximetry 98 Oxygen Delivery 11/24/21 16:00 11/24/21 16:00 11/24/21 18:00 Temperature Pulse Rate 112 H 93 Respiratory Rate Blood Pressure Pulse Oximetry Oxygen Delivery Room Air 11/24/21 20:00 11/24/21 20:00 11/24/21 20:00 Temperature 36.6 C Pulse Rate 98 90 Respiratory Rate 18 Blood Pressure 114/62 Pulse Oximetry 98 Oxygen Deliver
[2021-11-25] MEDS: dilTIAZem HCL CD 180 MG CAP.ER.24H PO (09:21)
[2021-11-25] MEDS: APIXABAN 5 MG TABLET PO ×2 (09:21→20:04)
[2021-11-25] MEDS: POTASSIUM CHLORIDE 20 MEQ TABLET 40 MEQ PO (09:31)
--- NOTE | 2021-11-25 09:41 | ECG_ITS ---
Measurements Intervals [place] Rate: 90 P: [place]: 0 QRS: 50 QRSD: 90 T: 0 QT: 320 QTc: 393 Interpretive Statements ATRIAL FIBRILLATION NONSPECIFIC T-WAVE ABNORMALITY ABNORMAL RHYTHM ECG COMPARED TO ECG 11/24/2021 02:47:40 T-WAVE ABNORMALITY NOW PRESENT Electronically Signed On 11-25-2021 10:28:48 CDT by Kev Butler M.D.
--- NOTE | 2021-11-25 16:47 | PM.IMPN ---
Progress Note: A&P Assessment and Plan (1) Atrial fibrillation, new onset: Code(s): I48.91 - Unspecified atrial fibrillation Status: Acute (2) Atrial fibrillation with rapid ventricular response: Code(s): I48.91 - Unspecified atrial fibrillation Status: Acute (3) Bronchitis: Code(s): J40 - Bronchitis, not specified as acute or chronic Status: Acute (4) Essential hypertension: Code(s): I10 - Essential (primary) hypertension Status: Acute Plan 11/24/21 Admit to telemetry step-down Continue on Cardizem drip Defer initiation of antiarrhythmic rate controlling agent cardiology Consult cardiology Continue home medications Lucio Vasc score of 6 Lovenox transition to OAC Interesting that patient has a diagnosis of COPD without any history of smoking or other environmental exposures and without compelling symptoms by history or imaging findings. Advised patient have PFTs after recovery from current acute illness Possible acute bronchitis will tx w Levaquin Blood cultures ordered and urine culture pending 11/25/21 history illicits rigors at home and chills. Her blood cultures are pending and no other source of infection has definitively been identified. She is being treated with Levaquin for acute bronchitis but again patient has no history of COPD, smoking, or environmental exposure. She does have known asthma and she is advised to follow with the pulmonary doctor for pulmonary function testing after discharge. AFib RVR per Cardiology Pending 48 hours negative blood cultures prior to discharge based on history Continue Levaquin for now which has been renal dose adjusted Close monitoring continue telemetry a.m. labs Subjective Date/time seen: 11/25/21 16:47 Patient had an episode where she felt her jaw was tight she had flushing and she developed a headache followed by weakness of her arms and legs. This was approximately 5 minutes after her morning med was passed Cardizem 2 tablets. Patient is reassured that this was not the cause of her some. Additionally during this time she was noted to have her heart rate in the 1 teens. This is more less the rate that she had when she presented to the emergency room with symptomatic. Additionally, history illicits rigors at home and chills. Her blood cultures are pending and no other source of infection has definitively been identified. She is being treated with Levaquin for acute bronchitis but again patient has no history of COPD, smoking, environmental exposure. She does have known asthma and she is advised to follow with the pulmonary doctor for pulmonary function testing after discharge. Exam Const: General: comfortable and no acute distress HENMT: General nose exam: Normal nares present Mouth: Yes moist mucous membranes Eyes: General: appearance normal, both eyes and all related structures Neck: Neck: supple and no JVD Resp: Effort & Inspection: normal respiratory effort Auscultation: clear to auscultation bilaterally, no crackles, no rhonchi and no wheezes Cardio: Rate: tachycardic Rhythm: abnormal rhythm GI: Inspection: non-distended Auscultation: normal bowel sounds Skin: General skin exam: normal color and no rashes or lesions noted Lesions: no lesions noted Rashes: no rashes noted Neuro: Speech: normal speech Motor exam (neuro): 5/5 motor strength present throughout Sensory Exam: normal sensation Extrem: General: normal to inspection and no edema Psych: Mental Status: mental status grossly normal Affect: normal affect Attitude: not belligerent Objective Data Vital Signs Vital Signs: Vital Signs - 24 hr 11/24/21 18:00 11/24/21 20:00 11/24/21 20:00 Temperature 97.9 F Pulse Rate 93 98 Respiratory Rate 18 Blood Pressure 114/62 Pulse Oximetry 98 Oxygen Delivery Room Air 11/24/21 20:00 11/24/21 23:21 11/25/21 00:00 Temperature 97.9 F Pulse Rate 90 88 Respiratory Rate 18 Bl
[2021-11-25] MEDS: levoFLOXacin 250 MG TABLET PO (17:37)
[2021-11-25] MEDS: IPRATROPIUM BR 0.02% INH SOLN 0.5 MG/2.5 ML VIAL INHALATION (23:53)
[2021-11-25] MEDS: ALBUTEROL SULFATE NEB 2.5 MG/3 ML INH INHALATION (23:54)
[2021-11-26] VITALS (18 sets, daily range): BP systolic 103–138; BP diastolic 45–84; PULSE 62–126; RESP 18–24; TEMP 36.4–37.2; O2SAT 95–98
[2021-11-26] MEDS: dilTIAZem HCL CD 180 MG CAP.ER.24H PO (09:32)
[2021-11-26] MEDS: APIXABAN 5 MG TABLET PO ×2 (09:33→20:10)
--- NOTE | 2021-11-26 10:45 | PM.PNCARD ---
Progress Note: A&P Assessment and Plan (1) Atrial fibrillation with rapid ventricular response: Code(s): I48.91 - Unspecified atrial fibrillation Status: Acute Assessment and Plan: Patient remains in atrial fibrillation with RVR, with heart rates in 100s. Continue long-acting diltiazem. Will add low-dose metoprolol tartrate. Continue anticoagulation with apixaban. Rate control and anticoagulation strategy is being pursued for now. Check thyroid panel (2) COPD exacerbation: Code(s): J44.1 - Chronic obstructive pulmonary disease with (acute) exacerbation Status: Acute Assessment and Plan: Management as per primary team. Subjective Date/time seen: 11/26/21 10:45 Interval history: Date of service 11/26/2021 Interval history: Patient reports shortness of breath and subjective chills. Denies chest pain. On Telemetry, patient is in atrial fibrillation with ventricular rate in early 100s. LVEF normal on echo. No PE on CT chest. Exam Narrative: PHYSICAL EXAMINATION: GENERAL: Alert, anxious MENTAL STATUS: Anxious EYES: Extraocular movements intact, no pallor EARS: External ears appear normal, hearing grossly normal NOSE: Normal and patent, no discharge MOUTH: Mucous membranes moist, tongue normal NECK: Supple, no JVD CHEST: Scattered rhonchi HEART: Tachycardia, irregular ABDOMEN: Soft, nontender NEUROLOGICAL: Alert, oriented, normal speech, no gross motor deficits MUSCULOSKELETAL: No major deformity, no amputation EXTREMITIES: No pedal edema, no clubbing, no cyanosis SKIN: no rash on the exposed area, no cyanosis PSYCHIATRIC: Anxious Objective Data Vital Signs Vital Signs: Vital Signs - 24 hr 11/25/21 12:10 11/25/21 12:00 11/25/21 12:00 Temperature 36.8 C Pulse Rate 84 93 Respiratory Rate 20 Blood Pressure 100/68 Pulse Oximetry 98 Oxygen Delivery Room Air 11/25/21 14:47 11/25/21 14:00 11/25/21 16:00 Temperature Pulse Rate 87 75 Respiratory Rate Blood Pressure Pulse Oximetry 97 Oxygen Delivery Room Air 11/25/21 16:00 11/25/21 16:19 11/25/21 18:00 Temperature 37.4 C Pulse Rate 83 81 Respiratory Rate 20 Blood Pressure 101/69 Pulse Oximetry 98 Oxygen Delivery Room Air 11/25/21 20:00 11/25/21 20:00 11/25/21 20:00 Temperature 36.6 C Pulse Rate 80 99 Respiratory Rate 20 Blood Pressure 106/80 Pulse Oximetry 93 Oxygen Delivery Room Air 11/25/21 21:49 11/25/21 22:00 11/25/21 23:50 Temperature Pulse Rate 73 Respiratory Rate 22 H Blood Pressure Pulse Oximetry 93 Oxygen Delivery Room Air 11/26/21 00:00 11/26/21 00:00 11/26/21 00:00 Temperature Pulse Rate 100 88 Respiratory Rate 20 Blood Pressure Pulse Oximetry Oxygen Delivery Room Air 11/26/21 00:00 11/26/21 02:00 11/26/21 04:00 Temperature 36.4 C 36.8 C Pulse Rate 62 96 107 H Respiratory Rate 20 20 Blood Pressure 121/73 125/51 L Pulse Oximetry 98 95 Oxygen Delivery 11/26/21 04:00 11/26/21 04:00 11/26/21 06:00 Temperature Pulse Rate 92 103 H Respiratory Rate Blood Pressure Pulse Oximetry Oxygen Delivery Room Air 11/26/21 08:00 Temperature 36.7 C Pulse Rate 108 H Respiratory Rate 24 H Blood Pressure 137/84 Pulse Oximetry 98 Oxygen Delivery Intake/Output Intake/Output: Intake & Output 11/23/21 11/24/21 11/25/21 11/26/21 23:59 23:59 23:59 23:59 Intake Total 1240 1110 Output Total 700 Balance 1240 410 Meds/Results Medications: Active Medications Generic Name Dose Route Start Last Admin Trade Name Freq PRN Reason Stop Dose Admin Acetaminophen 650 mg 11/25/21 10:54 Acetaminophen 325 Mg Tablet PO Q6H PRN Mild Pain (1-3) or Fever Albuterol 2.5 mg 11/24/21 16:49 11/25/21 23:54 Albuterol Sulfate Neb 2.5 Mg/3 Ml Inh INHALATION 2.5 mg Q6HRT PRN Administration Shortness Of Breath Apixaban 5 mg 0
[2021-11-26] MEDS: IPRATROPIUM BR 0.02% INH SOLN 0.5 MG/2.5 ML VIAL INHALATION ×2 (11:34→22:29)
[2021-11-26] MEDS: ALBUTEROL SULFATE NEB 2.5 MG/3 ML INH INHALATION ×2 (11:35→22:29)
[2021-11-26 11:40] LABS: NT Pro B Type Natriuretic Pept 1170 pg/mL (5-100)
[2021-11-26] MEDS: levoFLOXacin 250 MG TABLET PO (17:33)
--- NOTE | 2021-11-26 18:39 | PM.IMPN ---
Progress Note: A&P Assessment and Plan (1) Atrial fibrillation, new onset: Code(s): I48.91 - Unspecified atrial fibrillation Status: Acute (2) Atrial fibrillation with rapid ventricular response: Code(s): I48.91 - Unspecified atrial fibrillation Status: Acute (3) Bronchitis: Code(s): J40 - Bronchitis, not specified as acute or chronic Status: Acute (4) Essential hypertension: Code(s): I10 - Essential (primary) hypertension Status: Acute Plan 11/24/21 Admit to telemetry step-down Continue on Cardizem drip Defer initiation of antiarrhythmic rate controlling agent cardiology Consult cardiology Continue home medications Lucio Vasc score of 6 Lovenox transition to OAC Interesting that patient has a diagnosis of COPD without any history of smoking or other environmental exposures and without compelling symptoms by history or imaging findings. Advised patient have PFTs after recovery from current acute illness Possible acute bronchitis will tx w Levaquin Blood cultures ordered and urine culture pending 11/25/21 history illicits rigors at home and chills. Her blood cultures are pending and no other source of infection has definitively been identified. She is being treated with Levaquin for acute bronchitis but again patient has no history of COPD, smoking, or environmental exposure. She does have known asthma and she is advised to follow with the pulmonary doctor for pulmonary function testing after discharge. AFib RVR per Cardiology Pending 48 hours negative blood cultures prior to discharge based on history Continue Levaquin for now which has been renal dose adjusted Close monitoring continue telemetry a.m. labs 11/26/2021 interval history patient presented with rigor and chills with elevated white count suspect possible infection with geology uncertain, patient is being treated with levofloxacin, blood culture so far no growth patient remains clinically stable, also upon arrival patient was in atrial fibrillation with RVR was placed on diltiazem drip seen by cardiology patient remains in RVR but heart rate is trending down, recommended to continue long-acting diltiazem, will continue to monitor. Subjective Date/time seen: 11/26/21 18:39 11/25/21 history illicits rigors at home and chills. Her blood cultures are pending and no other source of infection has definitively been identified. She is being treated with Levaquin for acute bronchitis but again patient has no history of COPD, smoking, or environmental exposure. She does have known asthma and she is advised to follow with the pulmonary doctor for pulmonary function testing after discharge. AFib RVR per Cardiology Pending 48 hours negative blood cultures prior to discharge based on history Continue Levaquin for now which has been renal dose adjusted Close monitoring continue telemetry a.m. labs 11/26/2021 interval history patient presented with rigor and chills with elevated white count suspect possible infection with geology uncertain, patient is being treated with levofloxacin, blood culture so far no growth patient remains clinically stable, also upon arrival patient was in atrial fibrillation with RVR was placed on diltiazem drip seen by cardiology patient remains in RVR but heart rate is trending down, recommended to continue long-acting diltiazem, will continue to monitor. Review of Systems Constitutional: Constitutional: Reports fatigue Exam Narrative: Patient is comfortable, NAD HEENT: eyes are clear and none icteric LUNGS: normal respiratory effort ABD:distended Lower extremities: no edema SKIN: nonjaundiced Neuro: grossly intact. Objective Data Vital Signs Vital Signs: Vital Signs - 24 hr 11/25/21 20:00 11/25/21 20:00 11/25/21 20:00 Temperature 97.9 F Pulse Rate 80 99 Respiratory Rate 20 Blood Pressure 106/80 Pulse Oximetry 93 Oxygen Delivery Room Air 11/25
[2021-11-26] MEDS: METOPROLOL TARTRATE 12.5 MG TABLET PO (20:10)
[2021-11-27] VITALS (21 sets, daily range): BP systolic 103–126; BP diastolic 65–77; PULSE 78–113; RESP 17–26; TEMP 36.6–37.5; O2SAT 97–100
[2021-11-27 05:05] LABS: Hematocrit 38.9 % (37.0-47.0); Hemoglobin 12.6 g/dL (12.0-15.0); Mean Corpuscular HGB Conc 32.4 g/dl (32-36); Mean Corpuscular Hemoglobin 29.4 pg (26-34); Mean Corpuscular Volume 90.7 fl (80-100); Mean Platelet Volume 9.3 fl (7.4-10.4); Platelet Count Result 219 k/mm3 (150-375); Red Blood Count 4.29 M/mm3 (4.2-5.4); Red Cell Distribution Width 13.2 % (11.5-14.5); White Blood Count 7.1 K/mm3 (4.5-10.0)
[2021-11-27 05:24] LABS: Anion Gap 5 mmol/L (8-16); Blood Urea Nitrogen 17 mg/dL (7-17); Calcium 9.7 mg/dL (8.4-10.2); Carbon Dioxide 26 mmol/L (22-30); Chloride 103 mmol/L (98-107); Estimated CRCL calculation 45 ml/min; Estimated Glomerular Filt Rate > 60; Glucose 118 mg/dL (65-110); Magnesium 1.9 mg/dL (1.6-2.3); Potassium 3.9 mmol/L (3.4-5.0); Sodium 134 mmol/L (137-145)
[2021-11-27] MEDS: APIXABAN 5 MG TABLET PO ×2 (09:19→21:29)
[2021-11-27] MEDS: METOPROLOL TARTRATE 12.5 MG TABLET PO ×2 (09:19→21:29)
[2021-11-27] MEDS: dilTIAZem HCL CD 180 MG CAP.ER.24H PO (09:19)
[2021-11-27] MEDS: IPRATROPIUM BR 0.02% INH SOLN 0.5 MG/2.5 ML VIAL INHALATION ×2 (10:52→22:35)
[2021-11-27] MEDS: ALBUTEROL SULFATE NEB 2.5 MG/3 ML INH INHALATION ×2 (10:52→22:35)
--- NOTE | 2021-11-27 14:51 | PM.IMPN ---
Progress Note: A&P Assessment and Plan (1) Atrial fibrillation, new onset: Code(s): I48.91 - Unspecified atrial fibrillation Status: Acute (2) Atrial fibrillation with rapid ventricular response: Code(s): I48.91 - Unspecified atrial fibrillation Status: Acute (3) Bronchitis: Code(s): J40 - Bronchitis, not specified as acute or chronic Status: Acute (4) Essential hypertension: Code(s): I10 - Essential (primary) hypertension Status: Acute Plan 11/24/21 Admit to telemetry step-down Continue on Cardizem drip Defer initiation of antiarrhythmic rate controlling agent cardiology Consult cardiology Continue home medications Lucio Vasc score of 6 Lovenox transition to OAC Interesting that patient has a diagnosis of COPD without any history of smoking or other environmental exposures and without compelling symptoms by history or imaging findings. Advised patient have PFTs after recovery from current acute illness Possible acute bronchitis will tx w Levaquin Blood cultures ordered and urine culture pending 11/25/21 history illicits rigors at home and chills. Her blood cultures are pending and no other source of infection has definitively been identified. She is being treated with Levaquin for acute bronchitis but again patient has no history of COPD, smoking, or environmental exposure. She does have known asthma and she is advised to follow with the pulmonary doctor for pulmonary function testing after discharge. AFib RVR per Cardiology Pending 48 hours negative blood cultures prior to discharge based on history Continue Levaquin for now which has been renal dose adjusted Close monitoring continue telemetry a.m. labs 11/26/2021 interval history patient presented with rigor and chills with elevated white count suspect possible infection with geology uncertain, patient is being treated with levofloxacin, blood culture so far no growth patient remains clinically stable, also upon arrival patient was in atrial fibrillation with RVR was placed on diltiazem drip seen by cardiology patient remains in RVR but heart rate is trending down, recommended to continue long-acting diltiazem, will continue to monitor. 11/27/2021 interval history patient presented with rigor and chills with elevated white count suspect possible infection with etiology uncertain, patient is being treated with levofloxacin, blood culture so far no growth patient remains clinically stable, also upon arrival patient was in atrial fibrillation with RVR was placed on diltiazem drip, remains on diltiazem drip, as well as long-acting diltiazem 180 mg q.day, seen by cardiology patient remains in RVR but heart rate is trending down, patient cardiac echo showed ejection fraction of 60% and abnormal diastolic dysfunction recommended to continue long-acting diltiazem, will continue to monitor. Subjective Date/time seen: 11/27/21 14:51 11/27/2021 interval history patient presented with rigor and chills with elevated white count suspect possible infection with etiology uncertain, patient is being treated with levofloxacin, blood culture so far no growth patient remains clinically stable, also upon arrival patient was in atrial fibrillation with RVR was placed on diltiazem drip, remains on diltiazem drip, as well as long-acting diltiazem 180 mg q.day, seen by cardiology patient remains in RVR but heart rate is trending down, patient cardiac echo showed ejection fraction of 60% and abnormal diastolic dysfunction recommended to continue long-acting diltiazem, will continue to monitor. Review of Systems Constitutional: Constitutional: Reports fatigue Exam Narrative: Patient is comfortable, NAD HEENT: eyes are clear and none icteric LUNGS: normal respiratory effort ABD:distended Lower extremities: no edema SKIN: nonjaundiced Neuro: grossly intact. Objective Data Vital Signs Vital Signs: Vital Signs - 24 hr
[2021-11-27] MEDS: levoFLOXacin 250 MG TABLET PO (17:57)
--- NOTE | 2021-11-27 19:29 | PM.PNCARD ---
Progress Note: A&P Assessment and Plan (1) Atrial fibrillation with rapid ventricular response: Code(s): I48.91 - Unspecified atrial fibrillation Status: Acute Assessment and Plan: Patient remains in atrial fibrillation Heart rate a little better Continue long-acting diltiazem and metoprolol tartrate. Continue anticoagulation with apixaban. TSH was normal Rate control and anticoagulation strategy is being pursued for now. Follow-up in the office; if not doing well we can consider elective cardioversion (2) COPD exacerbation: Code(s): J44.1 - Chronic obstructive pulmonary disease with (acute) exacerbation Status: Acute Assessment and Plan: Wheezes and cough, rigors on admission, chest x-ray and CT showed clear lungs. COPD exacerbation, possible bronchitis, improved with albuterol nebulizer Management as per primary team. Subjective Date/time seen: 11/27/21 19:29 Interval history: Follow-up for AFib RVR, new onset. Date of service 11/26/2021 Interval history: Patient reports shortness of breath and subjective chills. Denies chest pain. On Telemetry, patient is in atrial fibrillation with ventricular rate in early 100s. LVEF normal on echo. No PE on CT chest. Date of service 11/27/2021: Did not sleep well last night due to rattling in her chest. Some shortness of breath and wheezing; improved a lot by albuterol nebulizer. Telemetry shows atrial fibrillation rate 90-110. Echo showed EF 65-70%, mild tricuspid regurgitation. Severe left atrial enlargement. Review of Systems Constitutional: Constitutional: Reports difficulty sleeping and Reports fatigue Eyes: Eyes: Reports no additional eye complaints ENT: Denies nasal congestion Cardiovascular: Cardiovascular: Denies chest pain, Reports pedal edema, Denies lightheadedness and Denies palpitations Respiratory: Respiratory: Reports chest congestion, Reports cough, Reports dyspnea and Reports wheezing Gastrointestinal: Gastrointestinal: Denies abdominal pain Musculoskeletal: Musculoskeletal: Reports no additional musculoskeletal complaints Integumentary/Breasts: Skin/Breast: Reports rash Neurologic: Denies confusion Psychiatric: Psychiatric: Reports no additional psychiatric complaints Exam Narrative: PHYSICAL EXAMINATION: GENERAL: Alert, anxious MENTAL STATUS: Anxious EYES: Extraocular movements intact, no pallor EARS: External ears appear normal, hearing grossly normal NOSE: Normal and patent, no discharge MOUTH: Mucous membranes moist, tongue normal NECK: Supple, CHEST: Scattered rhonchi and mild wheezing. Occasional productive cough. HEART: Irregular ABDOMEN: Soft, nontender NEUROLOGICAL: Alert, oriented, normal speech, no gross motor deficits MUSCULOSKELETAL: No major deformity EXTREMITIES: Mild lower tibial and pedal edema SKIN: no rash on the exposed area, no cyanosis PSYCHIATRIC: Anxious Objective Data Vital Signs Vital Signs: Vital Signs - 24 hr 11/26/21 20:10 11/26/21 20:00 11/26/21 20:00 Temperature 97.8 F Pulse Rate 111 H 101 H 101 H Respiratory Rate 18 Blood Pressure 103/80 Pulse Oximetry 97 Oxygen Delivery 11/26/21 22:00 11/26/21 20:00 11/26/21 22:20 Temperature Pulse Rate 72 78 Respiratory Rate 24 H Blood Pressure Pulse Oximetry Oxygen Delivery Room Air 11/26/21 22:31 11/26/21 22:31 11/26/21 23:21 Temperature 97.8 F Pulse Rate 86 89 Respiratory Rate 20 20 Blood Pressure 114/45 L Pulse Oximetry 96 98 Oxygen Delivery Room Air 11/27/21 00:00 11/27/21 00:00 11/27/21 04:00 Temperature 98.0 F Pulse Rate 88 112 H Respiratory Rate 18 Blood Pressure 103/66 Pulse Oximetry 97 Oxygen Delivery Room Air 11/27/21 02:00 11/27/21 04:00 11/27/21 06:00 Temperature Pulse Rate 89 78 90 Respiratory Rate Blood Pressure Pulse Oximetry Oxygen Delivery 11/27/21 04:00 06/0
[2021-11-27] MEDS: MELATONIN 5 MG TABLET PO (21:28)
[2021-11-27] MEDS: LORATADINE 10 MG TABLET PO (21:28)
[2021-11-27] MEDS: ONDANSETRON INJ 4 MG/2 ML VIAL IV PUSH (23:27)
[2021-11-28] VITALS (8 sets, daily range): BP systolic 100–134; BP diastolic 68–80; PULSE 81–121; RESP 18; TEMP 36.6–36.9; O2SAT 96–98
[2021-11-28 05:02] LABS: Hematocrit 38.4 % (37.0-47.0); Hemoglobin 12.3 g/dL (12.0-15.0); Mean Corpuscular Volume 90.6 fl (80-100); Mean Platelet Volume 9.4 fl (7.4-10.4); Platelet Count Result 201 k/mm3 (150-375); Red Blood Count 4.24 M/mm3 (4.2-5.4); White Blood Count 7.3 K/mm3 (4.5-10.0)
[2021-11-28 05:21] LABS: Anion Gap 4 mmol/L (8-16); Blood Urea Nitrogen 15 mg/dL (7-17); Carbon Dioxide 25 mmol/L (22-30); Chloride 106 mmol/L (98-107); Estimated CRCL calculation 40 ml/min; Estimated Glomerular Filt Rate 60; Glucose 128 mg/dL (65-110); Potassium 4.1 mmol/L (3.4-5.0); Sodium 135 mmol/L (137-145)
[2021-11-28] MEDS: dilTIAZem HCL CD 180 MG CAP.ER.24H PO (08:22)
[2021-11-28] MEDS: APIXABAN 5 MG TABLET PO (08:22)
[2021-11-28] MEDS: METOPROLOL TARTRATE 12.5 MG TABLET PO (09:28)
--- NOTE | 2021-11-28 10:08 | PM.DS ---
DS: Admitting Diagnosis Discharge Date 11/28/2021 Admitting Diagnosis shortness of breath DS: Discharge Diagnosis Discharge Diagnosis (1) Atrial fibrillation, new onset: Code(s): I48.91 - Unspecified atrial fibrillation Status: Acute (2) Atrial fibrillation with rapid ventricular response: Code(s): I48.91 - Unspecified atrial fibrillation Status: Acute (3) Bronchitis: Code(s): J40 - Bronchitis, not specified as acute or chronic Status: Acute (4) Essential hypertension: Code(s): I10 - Essential (primary) hypertension Status: Acute Plan 11/24/21 Admit to telemetry step-down Continue on Cardizem drip Defer initiation of antiarrhythmic rate controlling agent cardiology Consult cardiology Continue home medications Lucio Vasc score of 6 Lovenox transition to OAC Interesting that patient has a diagnosis of COPD without any history of smoking or other environmental exposures and without compelling symptoms by history or imaging findings. Advised patient have PFTs after recovery from current acute illness Possible acute bronchitis will tx w Levaquin Blood cultures ordered and urine culture pending 11/25/21 history illicits rigors at home and chills. Her blood cultures are pending and no other source of infection has definitively been identified. She is being treated with Levaquin for acute bronchitis but again patient has no history of COPD, smoking, or environmental exposure. She does have known asthma and she is advised to follow with the pulmonary doctor for pulmonary function testing after discharge. AFib RVR per Cardiology Pending 48 hours negative blood cultures prior to discharge based on history Continue Levaquin for now which has been renal dose adjusted Close monitoring continue telemetry a.m. labs 11/26/2021 interval history patient presented with rigor and chills with elevated white count suspect possible infection with geology uncertain, patient is being treated with levofloxacin, blood culture so far no growth patient remains clinically stable, also upon arrival patient was in atrial fibrillation with RVR was placed on diltiazem drip seen by cardiology patient remains in RVR but heart rate is trending down, recommended to continue long-acting diltiazem, will continue to monitor. 11/27/2021 interval history patient presented with rigor and chills with elevated white count suspect possible infection with etiology uncertain, patient is being treated with levofloxacin, blood culture so far no growth patient remains clinically stable, also upon arrival patient was in atrial fibrillation with RVR was placed on diltiazem drip, remains on diltiazem drip, as well as long-acting diltiazem 180 mg q.day, seen by cardiology patient remains in RVR but heart rate is trending down, patient cardiac echo showed ejection fraction of 60% and abnormal diastolic dysfunction recommended to continue long-acting diltiazem, will continue to monitor. DS: Summary Hospital Course Reason for hospitalization: SOB Narrative: 81-year-old female presents to the emergency room with shortness of breath.? Patient states that she has been having difficulty breathing in general since she had what she presumes was a COVID infection a couple of years ago, however, while outside yesterday weeding her garden, she became acutely short of breath was unable to speak and had to come into the house to take a breathing treatment and lie down.? Overnight she woke wheezing and had had no relief from the nebulizer treatment so she sought medical attention.? Patient reports that she also had chills yesterday, no quantified fever, but felt unwell.? She reports that in the past when feeling this way she was diagnosed with pneumonia.? She denies any other symptoms on extensive 14 point review. Patient does state that she was recently seen by her new PCP Dr. Tolentino who recommended for her to have a Holter monitor placed. P
--- NOTE | 2021-11-28 10:52 | PM.PNCARD ---
Progress Note: A&P Assessment and Plan (1) Atrial fibrillation with rapid ventricular response: Code(s): I48.91 - Unspecified atrial fibrillation Status: Acute Assessment and Plan: Patient remains in atrial fibrillation Heart rate reasonably controlled Continue long-acting diltiazem and metoprolol tartrate. Continue anticoagulation with apixaban. TSH was normal Rate control and anticoagulation strategy is being pursued for now. Follow-up in the office has been arranged; if not doing well we can consider elective cardioversion (2) COPD exacerbation: Code(s): J44.1 - Chronic obstructive pulmonary disease with (acute) exacerbation Status: Acute Assessment and Plan: Wheezes and cough, rigors on admission, chest x-ray and CT showed clear lungs. COPD exacerbation, possible bronchitis, improved with albuterol nebulizer Management per primary team. Subjective Date/time seen: 11/28/21 10:52 Interval history: Follow-up for AFib RVR, new onset. Date of service 11/26/2021 Interval history: Patient reports shortness of breath and subjective chills. Denies chest pain. On Telemetry, patient is in atrial fibrillation with ventricular rate in early 100s. LVEF normal on echo. No PE on CT chest. Date of service 11/27/2021: Did not sleep well last night due to rattling in her chest. Some shortness of breath and wheezing; improved a lot by albuterol nebulizer. Telemetry shows atrial fibrillation rate 90-110. Echo showed EF 65-70%, mild tricuspid regurgitation. Severe left atrial enlargement. Date of service 11/28/2021: Remains in atrial fibrillation on telemetry but rate is controlled rate 90-110. She denies any palpitations or chest pain but does have some shortness of breath. This is not new or different. Plan for patient to be discharged home today. Review of Systems Constitutional: Constitutional: Reports difficulty sleeping and Reports fatigue Eyes: Eyes: Reports no additional eye complaints ENT: Denies vertigo, Denies epistaxis and Denies nasal congestion Cardiovascular: Cardiovascular: Denies chest pain, Reports pedal edema, Reports leg edema, Denies lightheadedness, Denies palpitations, Reports dyspnea and Reports dyspnea on exertion Respiratory: Respiratory: Reports chest congestion, Reports cough, Reports dyspnea, Reports dyspnea on exertion and Reports wheezing Gastrointestinal: Gastrointestinal: Denies abdominal pain and Denies hematochezia Genitourinary: Genitourinary: Reports no additional female genitourinary complaints Musculoskeletal: Musculoskeletal: Reports no additional musculoskeletal complaints Integumentary/Breasts: Skin/Breast: Reports rash Neurologic: Denies behavioral changes, Denies confusion and Denies vertigo Psychiatric: Psychiatric: Reports no additional psychiatric complaints, Denies behavioral changes and Denies confusion Endocrine: Endocrine: Reports fatigue and Denies palpitations Allergic/Immunologic: Allergic/Immunologic: Reports wheezing Exam Const: General: comfortable and no acute distress; No confusion Orientation/consciousness: No confusion Other: Pleasant chatty older female who is in no distress HENMT: Head: normal to inspection Ears: hearing grossly normal bilaterally Mouth: Yes moist mucous membranes Eyes: EOM: EOMs intact bilaterally Neck: Neck: supple and no JVD Thyroid: thyroid normal Carotids: no bruits Resp: Effort & Inspection: normal respiratory effort Auscultation: clear to auscultation bilaterally Cardio: Rate: regular rate Rhythm: abnormal rhythm irregularly irregular Heart sounds: no murmurs Skin: General skin exam: no rashes or lesions noted Neuro: General: No confusion Motor exam (neuro): Normal motor muscle tone present throughout Psych: Mental Status: mental status grossly normal Objective Data Vital Signs Vital Signs: Vital Signs - 24 hr 11/27/21 10:54 11/27/21 11:03 11/27/21
--- NOTE | 2021-12-05 12:21 | PC.NURSE ---
Spoke with patient regarding medication requiring prior auth. Naty, Metropolol is the medication. Spoke to prior auth department. Metropolol is already covered by pt insurance. Called Metropolol succinate 25 mg ER one tab per day #30, called into [facility]. Informed patient of script being called in.
== END 2021-11-28 11:55 | disposition home or self-care (01) | DRG 309 ==
LOC: ANHED 02:56 → ANHIMU 05:57
PROVIDERS: Hospitalist; Internal Medicine Cardiovascular Disease; Admitting Provider Internal Medicine; Emergency Provider General Practice; PCP Family Medicine; Visit Provider Family Medicine
DX: I48.91 Unspecified atrial fibrillation (principal); J44.1 Chronic obstructive pulmonary disease with (acute) exacerbation; J44.0 Chronic obstructive pulmonary disease with (acute) lower respiratory infection; E87.3 Alkalosis; J20.9 Acute bronchitis, unspecified; I10 Essential (primary) hypertension; Z20.822 Contact with and (suspected) exposure to COVID-19; M81.0 Age-related osteoporosis without current pathological fracture; I25.10 Atherosclerotic heart disease of native coronary artery without angina pectoris; Z90.49 Acquired absence of other specified parts of digestive tract
CPT/HCPCS: 36415; 36600; 71046; 71275; 80048; 80053; 81001; 82375; 82805; 83050; 83605; 83690; 83735; 83880; 84443; 84484; 85025; 85027; 85380; 85610; 85730; 86140; 87040; 87502; 93005; 93306; 94640; 96361; 96365; 96366; 96372; 96375; 96376; 99285; A9270; C9803; G0378; J1200; J1650; J2405; J2920; J7030; Q9967; U0003; U0005

== ENCOUNTER 2022-01-16 19:57 | Emergency (ER) | payer MEDICARE, OTHER, SELFPAY ==
[2022-01-16 19:58] VITALS: BP 130/71; PULSE 105; RESP 18; TEMP 36.9; O2SAT 98
--- NOTE | 2022-01-16 20:10 | ED.WOUNDLAC ---
HPI - Wound/Laceration General Chief Complaint: Wound/Laceration Stated Complaint: lac rt wrist Time Seen by Provider: 01/16/22 19:57 Source: patient Mode of arrival: ambulatory Limitations: no limitations History of Present Illness HPI narrative: Patient presents today complaining of a laceration to her right wrist that was sustained to 20 minutes prior to arrival on a metal lock on her screen door at home. She was working on clearing water in front of her door at home from the rain. She became alarmed because she is on Eliquis and could not get it to stop bleeding. Denies pain at this time. She is not up-to-date on her tetanus vaccine. Related Data Home Medications Medication Instructions Recorded Confirmed aspirin 81 mg tablet,delayed 81 mg PO DAILY 11/24/21 01/16/22 release indapamide 1.25 mg tablet 1.25 mg PO DIRECTED PRN swelling 11/24/21 01/16/22 Allergies Allergy/AdvReac Type Severity Reaction Status Date / Time Iodinated Contrast Media Allergy Severe Other Verified 01/16/22 19:59 Review of Systems Review of Systems: CONSTITUTIONAL: Denies body aches, fever, chills, or sweats. EYES: Denies visual changes, redness, or discharge. ENT: Denies rhinorrhea, congestion, sore throat, or otalgia. CARDIOVASCULAR: Denies chest pain, palpitations, or edema. RESPIRATORY: Denies cough or dyspnea. GASTROINTESTINAL: Denies abdominal pain, nausea, vomiting, or diarrhea. GENITOURINARY: Denies dysuria or hematuria. SKIN: Denies rash, itching. + Right wrist laceration MUSCULOSKELETAL: Denies back pain, joint pain, or myalgia. NEUROLOGIC: Denies headache, numbness, tingling, or weakness. PSYCH: Denies depression or anxiety. [facility] Past Medical History Medical History Asthma Dyspnea Encounter for immunization Essential hypertension Osteoporosis Overweight (BMI 25.0-29.9) Weight loss Surgical History Surgical History Hx of cholecystectomy Family History Family History Mother Colon cancer Heart disease CHF Father Old age Social History Social History Smoking status: Never smoker Additional smoking assessment comments: Exposed to secondhand smoke her and father Alcohol intake: never Substance use: never Gender identity (if verbalized by the patient): Female Spiritual care concerns: No Comments At time of signature, I have reviewed and agree with nursing past medical, surgical, social and family history unless otherwise noted. Please see nursing chart for further information. There is no relevant family history pertinent to the presenting complaint Exam Narrative: GENERAL: Well-appearing, well-nourished, and in no acute distress. HEAD: Normocephalic, atraumatic. EYES: EOMI. No redness or drainage. Conjunctivae normal. ENT: Mucous membranes pink and moist. NECK: Normal AROM. CHEST: No respiratory distress. EXTREMITIES: Normal range of motion. No edema. SKIN: Warm, dry, no rash. Capillary refill normal. Normal skin turgor. 1 cm partial-thickness flap skin tear to the lateral distal ulna. No active bleeding. Small amount of ecchymosis. Distal sensation intact. Capillary refill normal. Radial pulse normal. Full range of motion of the wrist. NEURO: No focal deficits. Alert and oriented x3. Gait steady. PSYCH: Normal affect. No signs of depression or anxiety. Course Course Level of Care: Express Care Visit Vital Signs Vital signs: Vital Signs Temperature 98.5 F 01/16/22 19:58 Pulse Rate 105 H 01/16/22 19:58 Respiratory Rate 18 01/16/22 19:58 Blood Pressure 130/71 01/16/22 19:58 Pulse Oximetry 98 01/16/22 19:58 Oxygen Delivery Room Air 01/16/22 19:58 Temperature 98.5 F 01/16/22 19:58 Pulse Rate
[2022-01-16] MEDS: TETANUS/DIPHTHERIA TOXOIDS ADSORB 0.5 ML VIAL (*BKC) IM (20:13)
== END 2022-01-16 20:21 | disposition home or self-care (01) ==
PROVIDERS: Emergency Provider Nurse Practitioner
DX: S61.511A Laceration without foreign body of right wrist, initial encounter (principal); W45.8XXA Other foreign body or object entering through skin, initial encounter; Z23 Encounter for immunization; J45.909 Unspecified asthma, uncomplicated; I10 Essential (primary) hypertension; M81.0 Age-related osteoporosis without current pathological fracture
CPT/HCPCS: 12001; 90471; 90714; 99213; G0463

== ENCOUNTER 2022-04-21 11:09 | Emergency (ER) | payer MEDICARE, OTHER, SELFPAY ==
--- NOTE | ~2022-04-21 | XR_ITS ---
EXAMINATION: XR chest 2V DATE: 04/21/2022 12:21 INDICATION: Palpitations. Atrial fibrillation. TECHNIQUE: PA and lateral views of the chest were obtained. COMPARISON: Chest radiograph and CT dated 11/24/2021 FINDINGS: Unchanged mild discoid atelectasis at the right middle lobe no new airspace opacities, pulmonary can a, pleural effusion or pneumothorax. The cardiomediastinal silhouette is normal. Mild thoracic spondy losis. IMPRESSION: 1. Unchanged mild discoid atelectasis/scarring at the right middle lobe. No acute cardiopulmonary dis ease. Reviewed, dictated and finalized at location B. IMPRESSION: 1. Unchanged mild discoid atelectasis/scarring at the right middle lobe. No acu te cardiopulmonary disease.
--- NOTE | 2022-04-21 11:11 | ECG_ITS ---
Measurements Intervals [place] Rate: 103 P: [place]: 0 QRS: 30 QRSD: 87 T: 35 QT: 327 QTc: 430 Interpretive Statements ATRIAL FIBRILLATION WITH RAPID VENTRICULAR RESPONSE ABNORMAL RHYTHM ECG COMPARED TO ECG 11/25/2021 09:57:15 NO SIGNIFICANT CHANGES Electronically Signed On 04-21-2022 12:58:17 CDT by Kevin Ruvalcaba M.D.
[2022-04-21 11:24] VITALS: BP 134/71; PULSE 91; RESP 17; TEMP 36.4; O2SAT 99
[2022-04-21 11:33] LABS: Basophils Percent Auto 0.6 % (0.2-1.2); Eosinophils Absolute Auto 0.2 K/mm3 (0-0.3); Eosinophils Percent Auto 2.3 % (0-4.4); Hematocrit 39.7 % (37.0-47.0); Hemoglobin 13.1 g/dL (12.0-15.0); Immature Granulocyte Absolute 0.02 K/mm3 (0.00-0.031); Immature Granulocyte Percent A 0.3 % (0-0.5); Lymphocytes Absolute Auto 1.61 K/mm3 (0.9-3.2); Lymphocytes Percent Auto 22.7 % (18.3-44.2); Mean Corpuscular Hemoglobin 29.5 pg (26-34); Mean Corpuscular Volume 89.4 fl (80-100); Mean Platelet Volume 9.5 fl (7.4-10.4); Monocytes Absolute Auto 0.5 K/mm3 (0.1-0.6); Monocytes Percent Auto 7.5 % (2.6-8.5); Neutrophils Absolute Auto 4.7 K/mm3 (1.3-6.7); Neutrophils Percent Auto 66.6 % (45.5-73.1); Platelet Count Result 246 k/mm3 (150-375); Red Blood Count 4.44 M/mm3 (4.2-5.4); Red Cell Distribution Width 12.8 % (11.5-14.5); White Blood Count 7.1 K/mm3 (4.5-10.0)
[2022-04-21 11:43] LABS: Alanine Aminotransferase 13 U/L (6-35); Albumin Level 3.9 g/dL (3.5-5.1); Alkaline Phosphatase 52 U/L (38-126); Anion Gap 12 mmol/L (8-16); Aspartate Amino Transferase 15 U/L (14-36); Bilirubin,Total 0.3 mg/dL (0.2-1.3); Blood Urea Nitrogen 16 mg/dL (7-17); Calcium 10.7 mg/dL (8.4-10.2); Carbon Dioxide 23 mmol/L (22-30); Chloride 104 mmol/L (98-107); Estimated CRCL calculation 43 ml/min; Estimated Glomerular Filt Rate > 60; Glucose 121 mg/dL (65-110); Lipase 62 U/L (23-300); Potassium 3.8 mmol/L (3.4-5.0); Sodium 139 mmol/L (137-145)
[2022-04-21 11:48] LABS: INR 1.4; Prothrombin Time 16.3 Seconds (11.1-14.7)
[2022-04-21 11:49] LABS: Partial Thromboplastin Time 32.2 SECONDS (22.3-36.8)
[2022-04-21 11:55] LABS: Troponin I < 0.012 ng/mL (0.000-0.034)
[2022-04-21 12:15] VITALS: O2SAT 99
[2022-04-21 12:27] VITALS: BP 155/78; PULSE 90; RESP 16; O2SAT 98
[2022-04-21 12:30] VITALS: PULSE 75; PULSE 82; RESP 17; RESP 18; O2SAT 99
[2022-04-21 12:34] VITALS: PULSE 85
--- NOTE | 2022-04-21 12:56 | ED.ARRPALP ---
HPI - Arrhythmia/Palpitations General Chief Complaint: Arrhythmia/Palpitations Stated Complaint: afib Time Seen by Provider: 04/21/22 12:20 History of Present Illness HPI narrative: Pt presents with feeling of heart palpitations since yesterday. Pt recently diagnosed with A fib. Pt did not notice feeling of palpitations prior to the diagnosis. Pt denies CP or SOB. Related Data Home Medications Medication Instructions Recorded Confirmed indapamide 1.25 mg tablet 1.25 mg PO DIRECTED PRN swelling 11/24/21 04/03/22 metoprolol succinate 25 mg capsule 50 mg PO DAILY 04/03/22 04/03/22 sprinkle, ext. release 24 hr Allergies Allergy/AdvReac Type Severity Reaction Status Date / Time Iodinated Contrast Media Allergy Severe Other Verified 04/03/22 09:14 Review of Systems Review of Systems: All systems reviewed & are unremarkable except as noted in HPI and below PMFSH Past Medical History Medical History (Updated 04/21/22 @ 13:28 by Migue Sahu III, DO) Asthma Dyspnea Encounter for immunization Essential hypertension Osteoporosis Otalgia of both ears Overweight (BMI 25.0-29.9) Weight loss Surgical History Surgical History Hx of cholecystectomy Family History Family History Mother Colon cancer Heart disease CHF Father Old age Social History Social History Smoking status: Never smoker Additional smoking assessment comments: Exposed to secondhand smoke her and father Alcohol intake: never Substance use: never Gender identity (if verbalized by the patient): Female Spiritual care concerns: No Exam Const: General: healthy appearing and no acute distress Nutritional Appearance: well nourished Orientation/consciousness: patient oriented x3 Limitations: no limitations Neck: Neck: normal visual inspection, no lymphadenopathy and no meningeal signs Chest: Chest palpation & inspection: normal inspection of the chest Resp: Effort & Inspection: normal respiratory effort Auscultation: clear to auscultation bilaterally Cardio: Rate: regular rate Rhythm: abnormal rhythm GI: Auscultation: normal bowel sounds Skin: General skin exam: normal color Rashes: no rashes Wounds: no wounds Neuro: General: patient oriented x3 and moves all extremities Cranial nerves: Yes Nystagmus not present Speech: normal speech Gait exam (Neuro): Normal gait present Extrem: General: normal to inspection and no clubbing, cyanosis or edema Psych: Mental Status: mental status grossly normal Affect: normal affect Attitude: cooperative Course Vital Signs Vital signs: Vital Signs Temperature 97.6 F 04/21/22 11:24 Pulse Rate 91 04/21/22 11:24 Respiratory Rate 17 04/21/22 11:24 Blood Pressure 134/71 04/21/22 11:24 Pulse Oximetry 99 04/21/22 11:24 Oxygen Delivery Room Air 04/21/22 11:24 Temperature 97.6 F 04/21/22 11:24 Pulse Rate 73 04/21/22 14:04 Respiratory Rate 18 04/21/22 14:04 Blood Pressure 131/91 H 04/21/22 14:04 Pulse Oximetry 100 04/21/22 14:04 Oxygen Delivery Room Air 04/21/22 12:30 MDM - Arrhythmia/Palpitations Lab Data Result diagrams: 04/21/22 11:27 04/21/22 11:27 Labs: Lab Results 04/21/22 04/21/22 04/21/22 Range/Units 11:27 11:27 11:27 WBC 7.1 (4.5-10.0) K/mm3 RBC 4.44 (4.2-5.4) M/mm3 Hgb 13.1 (12.0-15.0) g/dL Hct 39.7 (37.0-47.0) % MCV 89.4 (80-100) fl MCH 29.5 (26-34) pg MCHC 33.0 (32-36) g/dl RDW 12.8 (11.5-14.5) % Plt Count 246 (150-375) k/mm3 MPV 9.5 (7.4-10.4) fl Immature Gran % (Auto) 0.3 (0-0.5) % Neut % (Auto) 66.6 (45.5-73.1) % Lymph % (Auto) 22.7 (18.3-44.2) % [place] % (Auto) 7.5 (2.6-8.5) % Eos % (Auto) 2.3 (0-4.4) % Baso % (Auto
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
--- NOTE | 2022-04-21 13:46 | PC.NURSE ---
EDP Sahu notified of previous note.
[2022-04-21 14:04] VITALS: BP 131/91; PULSE 73; RESP 18; O2SAT 100
== END 2022-04-21 14:06 | disposition home or self-care (01) ==
PROVIDERS: Emergency Medicine; Emergency Provider Emergency Medicine; PCP Family Medicine
DX: R00.2 Palpitations (principal); I48.91 Unspecified atrial fibrillation; J45.909 Unspecified asthma, uncomplicated; I10 Essential (primary) hypertension; M81.0 Age-related osteoporosis without current pathological fracture; E66.3 Overweight; Z68.27 Body mass index [BMI] 27.0-27.9, adult; Z77.22 Contact with and (suspected) exposure to environmental tobacco smoke (acute) (chronic); Z79.01 Long term (current) use of anticoagulants
CPT/HCPCS: 36415; 71046; 80053; 83690; 84484; 85025; 85610; 85730; 93005; 99284

== ENCOUNTER 2022-04-25 21:04 | Emergency (ER) | payer MEDICARE, OTHER, SELFPAY ==
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
[2022-04-25 21:07] VITALS: BP 117/99; PULSE 77; RESP 18; TEMP 36.8; O2SAT 98
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
[2022-04-26] MEDS: ACETAMINOPHEN 325 MG TABLET 650 MG PO (01:49)
== END 2022-04-26 03:42 | disposition home or self-care (01) ==
PROVIDERS: Emergency Provider General Practice; PCP Family Medicine
DX: S49.91XA Unspecified injury of right shoulder and upper arm, initial encounter (principal); J45.909 Unspecified asthma, uncomplicated; I10 Essential (primary) hypertension; M81.0 Age-related osteoporosis without current pathological fracture; Z77.22 Contact with and (suspected) exposure to environmental tobacco smoke (acute) (chronic); W51.XXXA Accidental striking against or bumped into by another person, initial encounter
CPT/HCPCS: 73030; 99283; A9270

== ENCOUNTER 2022-05-31 15:33 | Emergency (ER) | payer MEDICARE, OTHER, SELFPAY ==
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
[2022-05-31 16:48] VITALS: BP 132/79; PULSE 87; RESP 16; TEMP 36.2; O2SAT 99
--- NOTE | 2022-05-31 19:04 | ECG_ITS ---
Measurements Intervals [place] Rate: 77 P: [place]: 0 QRS: 31 QRSD: 97 T: 32 QT: 357 QTc: 405 Interpretive Statements ATRIAL FIBRILLATION ABNORMAL RHYTHM ECG COMPARED TO ECG 04/21/2022 11:18:36 NO SIGNIFICANT CHANGES Electronically Signed On 06-01-2022 8:31:03 FIRE PREVENTION INSPECTOR by Kevin Ruvalcaba M.D.
== END 2022-05-31 17:54 | disposition home or self-care (01) ==
PROVIDERS: Emergency Provider Nurse Practitioner; PCP Family Medicine
DX: S46.912A Strain of unspecified muscle, fascia and tendon at shoulder and upper arm level, left arm, initial encounter (principal); X58.XXXA Exposure to other specified factors, initial encounter; I48.91 Unspecified atrial fibrillation; J45.909 Unspecified asthma, uncomplicated; I10 Essential (primary) hypertension; M81.0 Age-related osteoporosis without current pathological fracture
CPT/HCPCS: 93005; 99213; G0463

== ENCOUNTER 2022-08-07 00:52 | Emergency (ER) | payer MEDICARE, OTHER, SELFPAY ==
--- NOTE | ~2022-08-07 | CT_ITS ---
EXAMINATION: CT brain wo con DATE: 08/07/2022 04:45 INDICATION: Face pain. Fall. TECHNIQUE: Computed tomography (CT) of the head was performed without intravenous contrast. The mA wa s adjusted according to patient size. Iterative reconstruction technique was employed. The dose-lengt h product was 605.33 mGy-cm. COMPARISON: None FINDINGS: There are scattered areas of low attenuation in the cerebral white matter, which is within normal limits for the patient's age. There is no intracranial hemorrhage, acute infarction, or abnorm al intracranial mass lesion. The ventricles are normal in size. The orbits are normal. There is mucos al thickening in the paranasal sinuses. There is thickening and sclerosis of the [place] of the right m axillary sinus, consistent with chronic sinusitis. The mastoid air cells are normal. IMPRESSION: 1. Normal aging brain. 2. Chronic sinusitis. Reviewed, dictated and finalized at location A. R BENDER OPERATOR
--- NOTE | ~2022-08-07 | CT_ITS ---
EXAMINATION: CT facial & cervical spine wo DATE: 08/07/2022 04:45 INDICATION: Fall. Face pain. TECHNIQUE: Computed tomography (CT) of the maxillofacial region and cervical spine was performed with out intravenous contrast. Automated exposure control and iterative reconstruction technique were empl oyed. The dose-length product was 258.54 mGy-cm. COMPARISON: None FINDINGS: MAXILLOFACIAL CT: There is mucosal thickening in the paranasal sinuses, worst in right maxillary sinus. There are old f racture deformities of the right maxillary sinus. There are fixation wires involving the facial bones bilaterally. The orbits are normal. There is no acute fracture. CERVICAL SPINE CT: There is 4 degrees dextrocurvature of cervical spine. Vertebral body heights are normal. There is 2 m m anterolisthesis of C4 on C5. There is mildly decreased disc height at C3-C4 and moderately decrease d disc height at C5-C6 and C6-C7. The following disc levels are specifically discussed: C2-C3: There is mild bilateral uncovertebral joint osteoarthritis. There is mild right and moderate l eft facet joint osteoarthritis. There is no neural foraminal stenosis. There is no central canal sten osis. C3-C4: There is severe right and mild left uncovertebral joint osteoarthritis. There is severe right and moderate left facet joint osteoarthritis. There is moderate right neural foraminal stenosis. Ther e is no central canal stenosis. C4-C5: There is mild bilateral uncovertebral joint osteoarthritis. There is severe right and moderate left facet joint osteoarthritis. There is mild bilateral neural foraminal stenosis. There is mild ce ntral canal stenosis. C5-C6: There is severe bilateral uncovertebral joint osteoarthritis. There is severe right and mild l eft facet joint osteoarthritis. There is mild right and moderate left neural foraminal stenosis. Ther e is mild central canal stenosis. C6-C7: There is severe bilateral uncovertebral joint osteoarthritis. There is severe bilateral facet joint osteoarthritis. There is moderate right and mild left neural foraminal stenosis. There is mild central canal stenosis. C7-T1: There is no uncovertebral joint osteoarthritis. There is mild bilateral facet joint osteoarthr itis. There is no neural foraminal stenosis. There is no central canal stenosis. IMPRESSION: 1. No acute fracture. 2. Moderate cervical spondylosis. Reviewed, dictated and finalized at location A. [employer]JECTS
[2022-08-07 00:48] VITALS: BP 161/89; PULSE 99; RESP 14; TEMP 36.4; O2SAT 100
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
--- NOTE | 2022-08-07 03:45 | ECG_ITS ---
Measurements Intervals [place] Rate: 98 P: [place]: 0 QRS: 44 QRSD: 83 T: 64 QT: 330 QTc: 422 Interpretive Statements ATRIAL FIBRILLATION NO SPECIFIC STTW ABNORMALITY ABNORMAL RHYTHM ECG COMPARED TO ECG 05/31/2022 17:48:29 NO SIGNIFICANT CHANGES Electronically Signed On 08-07-2022 14:53:43 GLASS CLEANING MACHINE TENDER by Pablo Jack M.D.
[2022-08-07] MEDS: SODIUM CHLORIDE 0.9% IV 1,000 ML 999 ML IV CONT (04:12)
[2022-08-07 04:21] LABS: Basophils Absolute Auto 0.1 K/mm3 (0.0-0.1); Basophils Percent Auto 0.5 % (0.2-1.2); Eosinophils Absolute Auto 0.1 K/mm3 (0-0.3); Eosinophils Percent Auto 1.2 % (0-4.4); Hematocrit 44.7 % (37.0-47.0); Hemoglobin 14.6 g/dL (12.0-15.0); Immature Granulocyte Absolute 0.03 K/mm3 (0.00-0.031); Immature Granulocyte Percent A 0.3 % (0-0.5); Lymphocytes Absolute Auto 1.54 K/mm3 (0.9-3.2); Mean Corpuscular HGB Conc 32.7 g/dl (32-36); Mean Corpuscular Hemoglobin 29.6 pg (26-34); Mean Corpuscular Volume 90.7 fl (80-100); Mean Platelet Volume 9.3 fl (7.4-10.4); Monocytes Absolute Auto 0.4 K/mm3 (0.1-0.6); Monocytes Percent Auto 4.1 % (2.6-8.5); Neutrophils Absolute Auto 8.1 K/mm3 (1.3-6.7); Neutrophils Percent Auto 78.9 % (45.5-73.1); Platelet Count Result 238 k/mm3 (150-375); Red Blood Count 4.93 M/mm3 (4.2-5.4); Red Cell Distribution Width 12.7 % (11.5-14.5); White Blood Count 10.3 K/mm3 (4.5-10.0)
[2022-08-07 04:22] LABS: Appearance Urine Clear (Clear); Bilirubin Urine Negative (Negative); Blood Urine Negative (Negative); Color Urine Yellow (Yellow); Glucose Urine UA Negative (Negative); Ketones Urine Negative (Negative); Leukocyte Esterase Ur Negative LEU/UL (Negative); Nitrate Urine Positive (Negative); Protein Urine Negative (Negative); Urobilinogen Urine 0.2 mg/dL (<2.0); pH Urine 6.5 (5.0-9.0)
[2022-08-07 04:25] LABS: Bacteria Urine Trace /hpf; Mucus Urine Rare /lpf; RBC Urine 21-50 /hpf (0-2); Squamous Epithelial Cell Urine Rare /hpf (Few)
[2022-08-07 04:32] LABS: Add Urine Microscopic? YES
[2022-08-07 04:35] LABS: Alanine Aminotransferase 17 U/L (6-35); Albumin Level 4.4 g/dL (3.5-5.1); Alkaline Phosphatase 71 U/L (38-126); Anion Gap 3 mmol/L (8-16); Aspartate Amino Transferase 18 U/L (14-36); Bilirubin,Total 0.4 mg/dL (0.2-1.3); Blood Urea Nitrogen 16 mg/dL (7-17); Calcium 10.8 mg/dL (8.4-10.2); Carbon Dioxide 29 mmol/L (22-30); Chloride 103 mmol/L (98-107); Estimated CRCL calculation 38 ml/min; Estimated Glomerular Filt Rate > 60; Glucose 150 mg/dL (65-110); Potassium 3.7 mmol/L (3.4-5.0); Sodium 135 mmol/L (137-145)
[2022-08-07 04:37] LABS: Amphetamine Screen Urine Negative (Negative); Barbiturate Screen Urine Negative (Negative); Benzodiazepines Screen Urine Positive (Negative); Cannabinoid Screen Urine Negative (Negative); Cocaine Screen Urine Negative (Negative); Methadone Screen Urine Negative (Negative); Opiate Screen Urine Negative (Negative); Phencyclidine Screen Urine Negative (Negative)
[2022-08-07 04:51] LABS: Ethanol < 10 mg/dL (<10)
[2022-08-07 05:21] VITALS: BP 141/71; PULSE 81; RESP 18; O2SAT 97
[2022-08-07 06:44] VITALS: BP 135/75; PULSE 87; RESP 19; O2SAT 98
== END 2022-08-07 06:40 | disposition home or self-care (01) ==
PROVIDERS: Emergency Provider Emergency Medicine; PCP Family Medicine
DX: T42.4X1A Poisoning by benzodiazepines, accidental (unintentional), initial encounter (principal); J45.909 Unspecified asthma, uncomplicated; I10 Essential (primary) hypertension; M81.0 Age-related osteoporosis without current pathological fracture; Z77.22 Contact with and (suspected) exposure to environmental tobacco smoke (acute) (chronic); Z79.01 Long term (current) use of anticoagulants
CPT/HCPCS: 36415; 70450; 70486; 72125; 80053; 80307; 81001; 85025; 93005; 96365; 99284; J0131; J7030

== ENCOUNTER 2022-10-30 07:59 | Outpatient (CLI) | payer MEDICARE, OTHER, SELFPAY | END 2022-10-30 08:00 | disposition home or self-care (01) | LOC: ANHAUDASC 08:06 | PROVIDERS: PCP Family Medicine; Visit Provider Otolaryngology | DX: H90.42 Sensorineural hearing loss, unilateral, left ear, with unrestricted hearing on the contralateral side (principal) | CPT/HCPCS: 92557; 92567 ==

== ENCOUNTER 2022-12-23 11:24 | Emergency (ER) | payer MEDICARE, OTHER, SELFPAY ==
--- NOTE | ~2022-12-23 | CT_ITS ---
EXAMINATION: CT lumbar spine wo con DATE: 12/23/2022 12:43 INDICATION: Low back pain TECHNIQUE: Computed tomography (CT) of the lumbar spine was performed without intravenous contrast. T he dose-length product (DLP) was 653.22 mGy-cm. Iterative reconstruction was used. COMPARISON: 02/25/2020 FINDINGS: Bone alignment is normal. There is no fracture. There is moderate loss of intervertebral di sc space height at L4-5 and L5-S1. The vertebral body heights are maintained. Small degenerative oste ophytes project from the anterior endplates of multiple vertebral bodies. There is moderate facet latonya nt osteoarthritis. IMPRESSION: 1. Moderate lumbar spondylosis without acute findings. Reviewed, dictated and finalized at location A.
[2022-12-23 11:25] VITALS: BP 147/76; PULSE 84; RESP 16; TEMP 36.8; O2SAT 98
--- NOTE | 2022-12-23 14:06 | ED.LOWEXIN ---
HPI - Extremity Injury (Lower) General Chief Complaint: Extremity Injury, Lower Stated Complaint: Left hip pain Time Seen by Provider: 12/23/22 11:48 History of Present Illness HPI Narrative: Patient is an 82-year-old female who presents ER with pain in her left low back. Ongoing for 6 weeks. Diagnosed with sciatica by her PCP. Was prescribed muscle relaxer. She has not taken any anti-inflammatories. She did initially declined x-rays. She reports pain had been bearable and was slightly improving however she did yard work yesterday and this morning she began having worsening of the pain. For the last 6 weeks it has been radiating into her posterior left leg but today is just persistent. Worse with movements and bending. No saddle anesthesia or urinary incontinence. No focal weakness. Related Data Home Medications Medication Instructions Recorded Confirmed indapamide 1.25 mg tablet 1.25 mg PO DIRECTED PRN swelling 11/24/21 11/10/22 metoprolol succinate 25 mg capsule 50 mg PO DAILY 04/03/22 11/10/22 sprinkle, ext. release 24 hr Allergies Allergy/AdvReac Type Severity Reaction Status Date / Time Iodinated Contrast Media Allergy Severe Other Verified 12/23/22 11:27 Review of Systems Constitutional: Constitutional: Denies chills and Denies fever(s) Genitourinary: Genitourinary: Denies nocturia, Denies dysuria, Denies flank pain and Denies urinary incontinence Musculoskeletal: Musculoskeletal: Reports back pain, Denies arthralgias and Denies joint swelling Neurologic: Denies focal weakness and Denies numbness PMFSH Past Medical History Medical History Asthma Dyspnea Encounter for immunization Essential hypertension Osteoporosis Otalgia of both ears Overweight (BMI 25.0-29.9) Weight loss Surgical History Surgical History Hx of cholecystectomy Family History Family History Mother Colon cancer Heart disease CHF Father Old age Social History Social History Smoking status: Never smoker Second hand tobacco smoke exposure: No Additional smoking assessment comments: Exposed to secondhand smoke her and father Alcohol intake: never Substance use: never Substance use type: does not use Lack of Transportation: No Lack of Food: Never True Current Housing: I Have Housing Concerned About Future Housing: No Difficulty Paying Gas/Electric Bills: No Difficulty Paying for Meds: No Currently Unemployed: No Education: High School Diploma/GED Difficulty w/ Childcare or Family Care: No Living arrangements: with family Gender identity (if verbalized by the patient): Female Spiritual care concerns: No Agree to blood products: Yes Exam Narrative: GENERAL: Well-appearing, well-nourished, and in no acute distress. HEAD: Normocephalic, atraumatic. ENT: Mucous membranes moist. Back: No midline tenderness of the T spine or paraspinal muscular tenderness. The lumbar and sacral spine have tenderness near L4-L5 and over the base of the sacrum as well as in the left SI region. No step-off/bruising/abrasion/rash. EXTREMITIES: Normal range of motion. No edema. SKIN: Warm, dry, no rash. NEURO: Alert and oriented x3. PSYCH: Normal mood and affect. Course Course Emergency Course: Patient educated on imaging results. Patient has muscle relaxers at home that she has barely taken. She cannot take steroids or other NSAIDs due to her blood thinner that she takes. She will contact her PCP about obtaining a steroid injection help with her discomfort. Feels comfortable discharge home. Vital Signs Vital signs: Vital Signs Temperature 98.3 F 12/23/22 11:25 Pulse Rate 84 12/23/22 11:25 Respiratory Rate 16 12/23/22 11:25 Blood Pressure
[2022-12-23 14:12] VITALS: PULSE 95; RESP 20; O2SAT 98
== END 2022-12-23 14:13 | disposition home or self-care (01) ==
PROVIDERS: Emergency Provider Emergency Medicine; PCP Family Medicine
DX: M54.42 Lumbago with sciatica, left side (principal); J45.909 Unspecified asthma, uncomplicated; I10 Essential (primary) hypertension; M81.0 Age-related osteoporosis without current pathological fracture; Z90.49 Acquired absence of other specified parts of digestive tract; Z77.22 Contact with and (suspected) exposure to environmental tobacco smoke (acute) (chronic); Z79.01 Long term (current) use of anticoagulants
CPT/HCPCS: 72131; 99284

== ENCOUNTER 2023-02-18 15:24 | Emergency (ER) | payer MEDICARE, OTHER, SELFPAY ==
--- NOTE | 2023-02-18 15:36 | ED.WOUNDLAC ---
HPI - Wound/Laceration General Chief Complaint: Wound/Laceration Stated Complaint: Left Leg Cut Time Seen by Provider: 02/18/23 16:05 Source: patient and RN notes reviewed Mode of arrival: ambulatory Limitations: no limitations History of Present Illness HPI narrative: 82-year-old female presents with concern for a wound on her leg that has been bleeding. She reports at baseline she has a raised lesion on her left lower leg, she accidentally bumped it earlier today causing it to bleed. She takes Eliquis and it has been slowly oozing blood since earlier today. She denies any other injury or concerns. Related Data Allergies Allergy/AdvReac Type Severity Reaction Status Date / Time Iodinated Contrast Media Allergy Severe Other Verified 02/18/23 15:28 Review of Systems Review of Systems: CONSTITUTIONAL: Denies malaise, chills, sweats, or fever. SKIN: Reports bleeding wound on her left lower leg MUSCULOSKELETAL: Denies muscle skeletal pain NEUROLOGIC: Denies numbness, weakness All systems reviewed & are unremarkable except as noted in HPI and below PMFSH Past Medical History Medical History Asthma Dyspnea Encounter for immunization Essential hypertension Osteoporosis Otalgia of both ears Overweight (BMI 25.0-29.9) Weight loss Surgical History Surgical History Hx of cholecystectomy Family History Family History Mother Colon cancer Heart disease CHF Father Old age Social History Social History Smoking status: Never smoker Second hand tobacco smoke exposure: No Additional smoking assessment comments: Exposed to secondhand smoke her and father Alcohol intake: never Substance use: never Substance use type: does not use Lack of Transportation: No Lack of Food: Never True Current Housing: I Have Housing Concerned About Future Housing: No Difficulty Paying Gas/Electric Bills: No Difficulty Paying for Meds: No Currently Unemployed: No Education: High School Diploma/GED Difficulty w/ Childcare or Family Care: No Living arrangements: with family Gender identity (if verbalized by the patient): Female Spiritual care concerns: No Agree to blood products: Yes Comments At time of signature, agree with nursing past medical, surgical, social and family history. There is no relevant family history pertinent to the presenting complaint Exam Narrative: GENERAL: Well-appearing, well-nourished, and in no acute distress. HEAD: Normocephalic, atraumatic. EYES: PERRLA, conjunctivae clear ENT: Mucous membranes moist. NECK: Supple. No lymphadenopathy CHEST: Clear to auscultation. No respiratory distress. HEART: Regular rate and rhythm. SKIN: Warm, dry. Approximately 0.75cm raised lesion noted to the left lower leg with small skin tear. No surrounding erythema, edema, induration, no other injury noted. NEURO: Alert and oriented x3. PSYCH: Normal mood and affect Course Course Emergency Course: Wound is using a small amount of blood, no gross bleeding. Silver nitrate applied to wound, hemostasis achieved. Dressing applied Patient is aware of diagnosis, understands and agrees to treatment plan. Anticipatory guidance given. Patient agrees to follow-up as directed and is aware of reasons to seek care at the emergency department. Portions of this record may have been created with voice recognition software Level of Care: Express Care Visit Vital Signs Vital signs: Reviewed. MDM - Wound/Laceration MDM Narrative Medical decision making narrative: Exam findings show no acute concerns or changes; patient is non-toxic appearing and is in no distress. Patient is appropriate for outpatient treatment and follow-up. Differential Diagnosis Differe
[2023-02-18 15:37] VITALS: BP 102/69; PULSE 95; RESP 16; TEMP 36.3; O2SAT 99
[2023-02-18 15:57] VITALS: BP 102/69; PULSE 95; RESP 16; TEMP 36.3; O2SAT 99
--- NOTE | 2023-02-18 16:20 | PC.NURSE ---
given silver nitrate package 1616
== END 2023-02-18 16:25 | disposition home or self-care (01) ==
PROVIDERS: Emergency Provider Nurse Practitioner; PCP Family Medicine
DX: S81.812A Laceration without foreign body, left lower leg, initial encounter (principal); X58.XXXA Exposure to other specified factors, initial encounter; J45.909 Unspecified asthma, uncomplicated; I10 Essential (primary) hypertension; M81.0 Age-related osteoporosis without current pathological fracture; Z79.01 Long term (current) use of anticoagulants
CPT/HCPCS: 12001; 99213; G0463

== ENCOUNTER 2023-04-10 16:12 | Emergency (ER) | payer MEDICARE, OTHER, SELFPAY ==
[2023-04-10 16:36] VITALS: BP 112/40; PULSE 58; RESP 20; TEMP 36.6; O2SAT 96
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
[2023-04-10] MEDS: ACETAMINOPHEN 325 MG TABLET 650 MG PO (19:13)
[2023-04-10 19:35] VITALS: BP 115/76; PULSE 68; RESP 16; O2SAT 100
== END 2023-04-10 19:37 | disposition home or self-care (01) ==
PROVIDERS: Emergency Provider Physician Assistant; PCP Family Medicine
DX: M25.552 Pain in left hip (principal); G89.29 Other chronic pain; I10 Essential (primary) hypertension; J45.909 Unspecified asthma, uncomplicated; Y08.89XA Assault by other specified means, initial encounter
CPT/HCPCS: 99282; A9270

== ENCOUNTER 2023-04-27 13:55 | Outpatient (CLI) | payer MEDICARE, OTHER, SELFPAY ==
--- NOTE | ~2023-04-27 | MR_ITS ---
MRI of the lumbar spine Clinical History: Left leg radiculopathy Technique: Axial T2-weighted images, and sagittal T1-weighted, T2-weighted, and and T2 fat-sat images were acquired. Findings: No fracture identified. Minimal grade 1 anterolisthesis of L4 over L5 present. No suspiciou s bone marrow signal abnormality seen. At L1-L2, there is minimal disc bulge and mild facet arthropathy. No central canal stenosis or neural foraminal narrowing. At L2-L3, there is no disc bulge or herniation. There is moderate facet arthropathy. No central canal stenosis. There is moderate left neural foraminal narrowing, and mild right neural foraminal narrowi ng. At L3-L4, there is disc bulge with moderate facet arthropathy. No central canal stenosis. There is mi ld to moderate left neural foraminal narrowing, and moderate right neural foraminal narrowing. At L4-L5, there is disc bulge and severe facet arthropathy, with moderate to severe central canal elissa nosis. There is moderate to severe right neural foraminal narrowing, and mild left neural foraminal n arrowing. At L5-S1, there is disc bulge and left-sided severe facet arthropathy. There is severe left neural fo raminal narrowing. Right neural foramen preserved. No central canal stenosis. Paravertebral soft tissues are unremarkable. IMPRESSION: Moderate degenerative spondylosis, with multilevel neural foraminal narrowing, as detailed above. Mul tifactorial moderate to severe central canal stenosis at L4-L5. Minimal grade 1 anterolisthesis of L4 over L5. Reviewed, dictated and finalized at [facility]. [employer] IMPRESSION: Moderate degenerative spondylosis, with multilevel neural foraminal narrowing, as detailed above. Multifactorial moderate to severe central canal stenosis at L4-L5. Minimal grade 1 anterolisthesis of L4 over L5.
== END 2023-04-27 13:56 | disposition home or self-care (01) ==
LOC: ANHIMG 13:56
PROVIDERS: PCP Family Medicine; Visit Provider Anesthesiology Pain Medicine
DX: M54.17 Radiculopathy, lumbosacral region (principal); M43.06 Spondylolysis, lumbar region; M48.062 Spinal stenosis, lumbar region with neurogenic claudication
CPT/HCPCS: 72148

== ENCOUNTER 2023-04-28 10:00 | Outpatient (RCR) | payer MEDICARE, OTHER, SELFPAY ==
--- NOTE | 2023-03-25 14:53 | PTOPEVAL1 ---
Assessment and note entered by Kevin York Evaluation Information Assessment Status Evaluation Diagnosis lumbar radiculopathy, spinal stenosis Onset 01/23/23 Subjective Information Pt. reports that she was at an outing and went to sit on a wooden bench while holding a plate of food and a drink. She reports she fell abruptly onto a wooden bench and felt pain. She report she underwent testing which revealed no fracture. She report she talked to a back surgeon who recommended surgery. She reports that most pain is into her left leg down to the mid calf. She reports that pain is worsened with prolonged standing and prolonged sitting. She states that her pain can vary and states that she can only stand for a few minutes. She states that she is vary sensitive to touch around the left hip. She reports that she has minimal complication with sleeping at night. She states that she does have to avoid sleeping on her left side. She reports that her goal is to decrease her pain and avoid surgery. Reported Pain Level Pain Score 1: Self Report Assessment PT Clinical Summary Pt is an 82 year old female who enters the clinic with lumbar radiculopathy due to degenerative changes at the lumbar spine. She presents with impaired postural awareness, impaired gait, impaired balance, pain, impaired flexibility and functional decline. Continued skilled PT is recommended in order to improve these areas to allow for improved comfort with IADL's. Plan of Care Interventions Electrical Stimulation,Gait Training,Hot Pack/Cold Pack,Manual Therapy,Mechanical Traction,Neuro Re- education,Patient/Caregiver Educati,Therapeutic Activities,Therapeutic Exercise PT Services Indicated Yes Treatment Frequency and 2x/week x 10 visits Duration These treatments will address the objective and functional deficits as defined above. The patient will be advanced safely and appropriately in order for the patient to progress towards his/her prior level of function. Additional exercises will be introduced and as well as a comprehensive home exercise program upon discharge, if needed, ?to ensure carryover of functional gains achieved in the clinic. This treatment plan has been reviewed and agreement upon by the patient.
--- NOTE | 2023-03-25 14:54 | OPREHPOC ---
Outpatient Therapy Plan of Care This is a Multidisciplinary Plan of Care that may contain components documented by all disciplines (PT, OT, and ST.) PT Problem 1 PT Problem #1 Knowledge Deficit PT Goal 1 Goal Indepndent with a HEP addressing strength and mobility Target Visit 2 PT Problem 2 PT Problem #2 Impaired Strength PT Goal 1 Goal Pt. will increase proximal l.e. strength to 4/5 or greater in all mm. groups Target Visit 10 PT Problem 3 PT Problem #3 Impaired Functional Mobil PT Goal 1 Goal -Pt. will improve her Oswestry score by 20% indicating improved function -Pt. will be able to stand for 30 minutes with pain levels at 5/10 at worst Target Visit 10 PT Problem 4 PT Problem #4 Impaired Flexibility PT Goal 1 Goal Pt. will present at 15 degrees from full knee extension with the 90/90 test to improve postural awareness.
--- NOTE | 2023-04-13 14:32 | PCPTNOTE ---
Patient called & cancelled scheduled appointment on 04/14/23, this date due to having a to attend.
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
--- NOTE | 2023-05-28 09:56 | PTOPDC ---
Assessment and note entered by Mirtha Vazquez, PT Discharge Information Assessment PT Clinical Summary PHYSICAL THERAPY DISCHARGE Linette has not received additional PT orders since progress/reevaluation report on 04-28-23; therefore, she will be discharged from PT at this time. Refer to the 04-28-23 report for her status at the last session. The goals were not addressed. Plan of Care PT Services Indicated No
== END 2023-05-28 10:16 | disposition home or self-care (01) ==
LOC: ANHPT 10:00
PROVIDERS: PCP Family Medicine; Visit Provider Anesthesiology Pain Medicine
DX: M54.17 Radiculopathy, lumbosacral region (principal); M48.062 Spinal stenosis, lumbar region with neurogenic claudication; M54.9 Dorsalgia, unspecified
CPT/HCPCS: 97014; 97110; 97140; 97161; 97530; G0283

== ENCOUNTER 2023-09-25 12:31 | Emergency (ER) | payer MEDICARE, OTHER, SELFPAY ==
--- NOTE | ~2023-09-25 | CT_ITS ---
EXAMINATION: CT brain wo con DATE: 09/25/2023 16:42 INDICATION: AMS . TECHNIQUE: Computed tomography (CT) of the head was performed without intravenous contrast. The mA wa s adjusted according to patient size. Iterative reconstruction technique was employed. The dose-lengt h product was 605.33 mGy-cm. This examination displayed on the PACS work list as alternatively locked and flagged for another radiologist, which may have been in error. COMPARISON: 08/07/2022. FINDINGS: No acute intracranial hemorrhage or extra-axial fluid collection. No hydrocephalus, mass, or herniation. No acute ischemic infarct. Unremarkable dural venous sinus attenuation. No acute osseous abnormality. Opacification and surrounding sclerosis in the right maxillary sinus. Mild ethmoid mucosal thickening . The remaining aerated spaces are clear. Mild atrophy and chronic white matter change. Atherosclerotic intracranial calcification. IMPRESSION: No acute intracranial process. Reviewed, dictated and finalized at location K.
[2023-09-25 12:33] VITALS: BP 116/86; PULSE 94; RESP 18; TEMP 36.4; O2SAT 97
[2023-09-25 13:14] LABS: Basophils Absolute Auto 0.1 K/mm3 (0.0-0.1); Basophils Percent Auto 0.7 % (0.2-1.2); Eosinophils Absolute Auto 0.2 K/mm3 (0-0.3); Eosinophils Percent Auto 3.3 % (0-4.4); Hematocrit 45.8 % (37.0-47.0); Hemoglobin 14.8 g/dL (12.0-15.0); Immature Granulocyte Absolute 0.02 K/mm3 (0.00-0.031); Immature Granulocyte Percent A 0.3 % (0-0.5); Lymphocytes Percent Auto 24.6 % (18.3-44.2); Mean Corpuscular HGB Conc 32.3 g/dl (32-36); Mean Corpuscular Hemoglobin 29.3 pg (26-34); Mean Corpuscular Volume 90.7 fl (80-100); Mean Platelet Volume 9.7 fl (7.4-10.4); Monocytes Absolute Auto 0.6 K/mm3 (0.1-0.6); Monocytes Percent Auto 7.5 % (2.6-8.5); Neutrophils Absolute Auto 4.7 K/mm3 (1.3-6.7); Neutrophils Percent Auto 63.6 % (45.5-73.1); Platelet Count Result 258 k/mm3 (150-375); Red Blood Count 5.05 M/mm3 (4.2-5.4); Red Cell Distribution Width 12.6 % (11.5-14.5); White Blood Count 7.3 K/mm3 (4.5-10.0)
[2023-09-25 13:15] LABS: Appearance Urine Clear (Clear); Bilirubin Urine Negative (Negative); Blood Urine Negative (Negative); Color Urine Yellow (Yellow); Glucose Urine UA Negative (Negative); Ketones Urine Negative (Negative); Leukocyte Esterase Ur Negative LEU/UL (Negative); Nitrate Urine Negative (Negative); Protein Urine Negative (Negative); Specific Grav Ur 1.017 (1.001-1.035); Urobilinogen Urine 0.2 mg/dL (<2.0); pH Urine 5.5 (5.0-9.0)
[2023-09-25 13:16] LABS: Ethanol < 10 mg/dL (<10)
[2023-09-25 13:17] LABS: Alanine Aminotransferase 12 U/L (6-35); Albumin Level 4.8 g/dL (3.5-5.1); Alkaline Phosphatase 64 U/L (38-126); Anion Gap 5 mmol/L (4-12); Aspartate Amino Transferase 18 U/L (14-36); Bilirubin,Total 0.5 mg/dL (0.2-1.3); Blood Urea Nitrogen 18 mg/dL (7-17); Calcium 12.3 mg/dL (8.4-10.2); Carbon Dioxide 28 mmol/L (22-30); Chloride 106 mmol/L (98-107); Estimated CRCL calculation 33 ml/min; Estimated Glomerular Filt Rate 60; Glucose 113 mg/dL (65-110); Potassium 4.4 mmol/L (3.4-5.0); Sodium 139 mmol/L (137-145)
[2023-09-25 13:19] LABS: Add Urine Microscopic? NO
[2023-09-25 13:56] LABS: Influenza A QL RT-PCR Negative (Negative); Influenza B QL RT-PCR Negative (Negative); RSV RNA, RT-PCR Negative (Negative); SARS-CoV-2 RNA PCR Negative (Negative)
[2023-09-25 14:00] LABS: Benzodiazepines Screen Urine Negative (Negative)
[2023-09-25 14:02] LABS: Amphetamine Screen Urine Negative (Negative); Cannabinoid Screen Urine Negative (Negative); Cocaine Screen Urine Negative (Negative); Methadone Screen Urine Negative (Negative); Opiate Screen Urine Negative (Negative); Phencyclidine Screen Urine Negative (Negative)
[2023-09-25 14:22] LABS: Barbiturate Screen Urine Negative (Negative)
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
--- NOTE | 2023-09-25 17:52 | PC.NURSE ---
Pts sons phone number is [phone] Pts son states he is on his way to the hospital with an hour ETA
--- NOTE | 2023-09-25 18:58 | PC.NURSE ---
CT results and lab results faxed to [place] and [facility]
--- NOTE | 2023-09-25 19:16 | PC.NURSE ---
this rn assumed care of patient. this rn took patient report from NEHAL Cabezas.
[2023-09-25] MEDS: ACETAMINOPHEN 500 MG TABLET 1000 MG PO (19:45)
[2023-09-25 23:25] VITALS: BP 141/78; PULSE 95; RESP 20; O2SAT 98
--- NOTE | 2023-09-25 23:52 | PC.NURSE ---
called [facility] to inform that patient has left our facility and is on the way @ [id number]
== END 2023-09-25 23:25 ==
PROVIDERS: Emergency Provider Emergency Medicine; PCP Family Medicine
DX: F03.90 Unspecified dementia, unspecified severity, without behavioral disturbance, psychotic disturbance, mood disturbance, and anxiety (principal); F41.9 Anxiety disorder, unspecified; Z20.822 Contact with and (suspected) exposure to COVID-19; J45.909 Unspecified asthma, uncomplicated; I10 Essential (primary) hypertension
CPT/HCPCS: 36415; 70450; 80053; 80307; 81003; 84443; 85025; 87637; 99284; A9270

== ENCOUNTER 2023-11-19 11:36 | Outpatient (CLI) | payer MEDICARE, OTHER, SELFPAY ==
[2023-11-19 14:37] LABS: Alanine Aminotransferase 11 U/L (6-35); Albumin Level 3.9 g/dL (3.5-5.1); Alkaline Phosphatase 59 U/L (38-126); Anion Gap 3 mmol/L (4-12); Aspartate Amino Transferase 44 U/L (14-36); Bilirubin,Total 0.5 mg/dL (0.2-1.3); Blood Urea Nitrogen 20 mg/dL (7-17); Calcium 10.9 mg/dL (8.4-10.2); Carbon Dioxide 25 mmol/L (22-30); Chloride 109 mmol/L (98-107); Estimated Glomerular Filt Rate 60; Glucose 100 mg/dL (65-110); Magnesium 2.2 mg/dL (1.6-2.3); Phosphorus 2.7 mg/dL (2.5-4.5); Potassium 4.5 mmol/L (3.4-5.0); Sodium 137 mmol/L (137-145)
[2023-11-19 14:42] LABS: Free T4 Free Thyroxine 1.08 ng/mL (0.78-2.19); Vitamin D 25 Hydroxy 37.3 ng/mL
[2023-11-19 14:49] LABS: Parathyroid Intact 279.1 pg/mL (7.5-53.5)
[2023-11-24 13:59] LABS: Vitamin D 1,25 (OH)2 Total 51 pg/mL (18-72); Vitamin D2 1,25 (OH)2 <8 pg/mL; Vitamin D3 1,25 (OH)2 51 pg/mL
[2023-12-01 15:59] LABS: Parathyroid Hormone Related Pr 12 pg/mL (11-20)
== END 2023-11-19 11:37 | disposition home or self-care (01) ==
PROVIDERS: PCP Family Medicine; Visit Provider Internal Medicine
DX: M81.0 Age-related osteoporosis without current pathological fracture (principal); E83.52 Hypercalcemia; E21.0 Primary hyperparathyroidism
CPT/HCPCS: 36415; 80053; 82306; 82330; 82652; 83519; 83735; 83970; 84100; 84439; 84443

== ENCOUNTER 2023-11-23 10:21 | Outpatient (NON) | payer MEDICARE, OTHER, SELFPAY ==
[2023-11-23 13:23] LABS: Creatinine Urine 63.8 mg/dL
[2023-11-23 14:15] LABS: Creatinine 24 Hour Urine 0.6 gm/24 (0.8-1.8); Total Volume 24 Hour Urine 1010 ml
== END 2023-11-23 10:22 | disposition home or self-care (01) ==
LOC: ANHWCLAB 10:22
PROVIDERS: PCP Family Medicine; Visit Provider Internal Medicine
DX: E83.52 Hypercalcemia (principal); M81.0 Age-related osteoporosis without current pathological fracture
CPT/HCPCS: 81050; 82340; 82570

== ENCOUNTER 2023-12-11 14:17 | Outpatient (CLI) | payer MEDICARE, OTHER, SELFPAY ==
--- NOTE | ~2023-12-11 | US_ITS ---
EXAMINATION: US thyroid DATE: 12/11/2023 14:47 INDICATION: Primary hyperparathyroidism. TECHNIQUE: Multiple ultrasound images of the thyroid were obtained. COMPARISON: CT cervical spine 08/07/2022 FINDINGS: The right thyroid lobe measures 5.1 x 1.8 x 1.6 cm. The left thyroid lobe measures 4.7 x 1.2 x 2.0 c m. In the right thyroid lobe, there is an 8 mm solid, hypoechoic, wider than tall nodule with smooth margins without echogenic foci (TI-RADS TR4). In the left thyroid lobe, there is a 7 mm solid, hypoe choic, wider than tall nodule with smooth margin without echogenic foci (TR4). Posterior to the left thyroid lobe, there is a 10 x 7 mm hypoechoic mass. IMPRESSION: 1. Small thyroid nodules, likely not clinically significant. No follow-up is needed. 2. Chronic 10 mm mass in left tracheoesophageal groove, which may be a normal lymph node or a parathy roid adenoma. Correlate with parathyroid scintigraphy. Reviewed, dictated and finalized at location E. IMPRESSION: 1. Small thyroid nodules, likely not clinically significant. No follow-up is ne eded. 2. Chronic 10 mm mass in left tracheoesophageal groove, which may be a normal l ymph node or a parathyroid adenoma. Correlate with parathyroid scintigraphy.
== END 2023-12-11 14:18 | disposition home or self-care (01) ==
LOC: ANHIMG 14:20
PROVIDERS: PCP Family Medicine; Visit Provider Internal Medicine
DX: E83.52 Hypercalcemia (principal); M81.0 Age-related osteoporosis without current pathological fracture; E04.2 Nontoxic multinodular goiter
CPT/HCPCS: 76536

== ENCOUNTER 2023-12-12 10:06 | Emergency (ER) | payer MEDICARE, OTHER, SELFPAY ==
--- NOTE | ~2023-12-12 | CT_ITS ---
EXAMINATION: CT cervical spine wo con DATE: 12/12/2023 10:38 INDICATION: Fall. TECHNIQUE: Computed tomography (CT) of the cervical spine was performed without intravenous contrast. Automated exposure control and iterative reconstruction technique were employed. Exam dose: 196.80 mGy-cm total exam DLP. COMPARISON: June 06, 2023 CT cervical spine FINDINGS: Normal alignment at the atlantoaxial joints. C1 and C2 are normally aligned and the odontoid process is intact. Chronic mild anterolisthesis at C4-5 is noted, present on August 07, 2022 as well. Moderately severe degenerative disease at C5-6 and C6-7. Degenerative change at the apophyseal joints. Bilateral uncovertebral joint spurring at C5-6 and C6-7 .. No fracture or dislocation, locked facet or prevertebral soft tissue swelling. IMPRESSION: Chronic moderate severe cervical spondylosis cervical no fracture or dislocation or lock ed facet Reviewed, dictated and finalized at Location A. Reviewed, dictated and finalized at location A. IMPRESSION: Chronic moderate severe cervical spondylosis cervical no fracture or dislocation or locked facet
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
[2023-12-12 10:08] VITALS: BP 160/92; PULSE 112; RESP 16; TEMP 36.6; O2SAT 100
--- NOTE | 2023-12-12 10:19 | ED.FALL ---
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 She is on Eliquis for history of atrial fibrillation. Last dose taken this morning. Patient lost her balance while seated on a small child size chair. She denies any pain including no headache or tenderness palpation to her hematoma on her occiput. Related Data Allergies Allergy/AdvReac Type Severity Reaction Status Date / Time Iodinated Contrast Media Allergy Severe Other Verified 12/12/23 10:15 [facility] Past Medical History Medical History (Updated 12/12/23 @ 11:04 by Eugenia Aiken MD) Asthma Atrial fibrillation Dyspnea Encounter for immunization Essential hypertension On anticoagulant therapy Osteoporosis Otalgia of both ears Overweight (BMI 25.0-29.9) Weight loss Surgical History Surgical History Hx of cholecystectomy Family History Family History Mother Colon cancer Heart disease CHF Father Old age Social History Social History (Updated 12/12/23 @ 10:25 by Eugenia Aiken MD) Social History: but with dementia recently filed for divorce; resides in the house together but currently living in the basement Smoking status: Never smoker Second hand tobacco smoke exposure: No Additional smoking assessment comments: Exposed to secondhand smoke her and father Alcohol intake: never Substance use: never Substance use type: does not use Lack of Transportation: No Lack of Food: Never True Current Housing: I Have Housing Concerned About Future Housing: No Difficulty Paying Gas/Electric Bills: No Difficulty Paying for Meds: No Currently Unemployed: No Education: High School Diploma/GED Difficulty w/ Childcare or Family Care: No Living arrangements: with family Gender identity (if verbalized by the patient): Female Spiritual care concerns: No Agree to blood products: Yes Exam Narrative: GENERAL: Well-appearing, well-nourished, and in no acute distress. HEAD: Hematoma on posterior occipital scalp. No bleeding/ /duration. No tenderness to palpation of hematoma. EYES: Non injected, non icteric ENT: Nares clear, no rhinorrhea or epistaxis. NECK: Supple. CHEST: Speaking in full sentences. No respiratory distress. HEART: Mildly Tachycardic rate and rhythm , suspect rate controlled afib ABDOMEN: Soft, nondistended. EXTREMITIES: Normal range of motion. No edema. SKIN: Warm, dry, no rash. NEURO: No focal deficits. Alert and oriented x3. Speaks with jerky/stuttering speech, baseline. No involuntary movements. PSYCH: Normal mood and affect. Course Vital Signs Vital signs: Vital Signs Temperature 98 F 12/12/23 10:08 Pulse Rate 112 H 12/12/23 10:08 Respiratory Rate 16 12/12/23 10:08 Blood Pressure 160/92 H 12/12/23 10:08 Pulse Oximetry 100 12/12/23 10:08 Oxygen Delivery Room Air 12/12/23 10:08 Temperature 98 F 12/12/23 10:08 Pulse Rate 112 H 12/12/23 10:08 Respiratory Rate 16 12/12/23 10:08 Blood Pressure 160/92 H 12/12/23 10:08 Pulse Oximetry 100 12/12/23 10:08 Oxygen Delivery Room Air 12/12/23 10:08 MDM - Fall MDM Narrative Medical decision making narrative: patient presents after ground level fall. She has a posterior occipital hematoma without active bleeding. She is on Eliquis and this is why she presents as her primary care physician has told her she needs to for any injury such as this. She has no complaints including no pain at baseline or with palpation of the hematoma. Ice pack applied but patient declines acetaminophen. in the
[2023-12-12 11:23] VITALS: BP 126/77; PULSE 96; RESP 17; O2SAT 97
== END 2023-12-12 11:24 | disposition home or self-care (01) ==
PROVIDERS: Emergency Provider Student in an Organized Health Care Education/Training Program; PCP Family Medicine
DX: S00.03XA Contusion of scalp, initial encounter (principal); M47.812 Spondylosis without myelopathy or radiculopathy, cervical region; I48.91 Unspecified atrial fibrillation; I10 Essential (primary) hypertension; J45.909 Unspecified asthma, uncomplicated; E66.3 Overweight; Z68.26 Body mass index [BMI] 26.0-26.9, adult; M81.0 Age-related osteoporosis without current pathological fracture; Z90.49 Acquired absence of other specified parts of digestive tract; Z79.01 Long term (current) use of anticoagulants; Z77.22 Contact with and (suspected) exposure to environmental tobacco smoke (acute) (chronic); Z79.899 Other long term (current) drug therapy; W07.XXXA Fall from chair, initial encounter
CPT/HCPCS: 70450; 72125; 99284

== ENCOUNTER 2024-01-27 12:17 | Outpatient (CLI) | payer MEDICARE, OTHER, SELFPAY ==
--- NOTE | ~2024-01-27 | DEXA_ITS ---
Bone Density Report Name: JUAN JOSE PASTOR Age: 83 Sex: Female Ethnicity: White Date of : 1940 Indication: postmenopausal; screening for osteoporosis; height loss; Referring Provider: ROSA KING Study: Bone densitometry was performed. Exam Date: January 27, 2024 Accession number: [id number] Bone Density: Region BMD T-score Z-score Classification AP Spine(L1-L4) 0.857 -1.7 1.1 Osteopenia Femoral Neck (Left) 0.553 -2.7 -0.1 Osteoporosis Total Hip (Left) 0.688 -2.1 0.3 Osteopenia Femoral Neck (Right) 0.548 -2.7 -0.2 Osteoporosis Total Hip (Right) 0.627 -2.6 -0.2 Osteoporosis Total Hip Mean 0.658 -2.4 0.1 Osteopenia World Health Organization criteria for BMD impression classify patients as: Normal (T-score at or above -1.0), Osteopenia (T-score between -1.0 and -2.5), or Osteoporosis (T-score at or below -2.5). 10-year Fracture Risk: FRAX not reported because: Some T-score for Spine Total or Hip Total or Femoral Neck at or below -2.5 Clinical Information Provided by Patient: Patient maximum height was 64.0 No regular weight bearing exercise Drinks caffeinated beverages Onset of menses at age 10 Number of children 3 Impression: The patient has osteoporosis, based on the Left Femoral Neck T-score. Discussion: INCREASED RISK OF FRACTURE. BONE DENSITY IS UNDESIRABLY LOW AT ONE OR MORE SKELETAL SITES, CONSISTENT WITH POSTMENOPAUSAL OSTEOPOROSIS. This patient's lowest T-score meets the World Health Organization's (WHO) criteria for osteoporosis at one or more sites (T-score -2.5 or below). In untreated patients, the risk of osteoporotic fracture increases approximately two-fold for each 1.0 SD decrease in T-score. Low bone density is not the only risk factor for fracture; also consider factors such as patient's age, frailty or poor health, risk of falling, risk of injury, previous osteoporotic fracture, family history of osteoporosis, cigarette smoking, low body weight, etc. Not everyone with low bone mineral density has osteoporosis; osteomalacia and other metabolic bone disorders should also be considered. Patients who have osteoporosis should be evaluated for specific diseases and conditions (secondary causes) that may cause or contribute to bone loss. The [place] Association of Clinical Endocrinologists (AACE) and National Osteoporosis Foundation (NOF) recommend pharmacologic intervention for all postmenopausal women whose T-score is in this range. The patient should follow a healthful lifestyle (good nutrition with adequate calcium and vitamin D, and appropriate weight-bearing exercise). Follow-Up: Consider a repeat BMD and Vertebral Fracture Assessment (VFA) exam in 2 years or sooner if medically necessary, to reassess this patient's status. Reported by: CARLENE on 01/27/2024
== END 2024-01-27 12:18 | disposition home or self-care (01) ==
LOC: ANHIMG 12:19
PROVIDERS: PCP Family Medicine; Visit Provider Internal Medicine
DX: M81.0 Age-related osteoporosis without current pathological fracture (principal); M85.89 Other specified disorders of bone density and structure, multiple sites; N95.1 Menopausal and female climacteric states; Z13.820 Encounter for screening for osteoporosis
CPT/HCPCS: 77080

== ENCOUNTER 2024-05-01 01:53 | Emergency (ER) | payer MEDICARE, OTHER, SELFPAY ==
[2024-05-01] VITALS (8 sets, daily range): BP systolic 138–151; BP diastolic 65–99; PULSE 71–96; RESP 11–18; TEMP 36.5; O2SAT 96–100
--- NOTE | ~2024-05-01 | XR_ITS ---
Portable chest x-ray Comparison: 04/21/2022 Clinical History: Cough, shortness of breath Findings: Lungs are clear, without focal consolidation or pleural effusion. Cardiomediastinal silho uette is stable. Bones and soft tissues are unremarkable. Impression: Normal chest Reviewed, dictated and finalized at location . [facility] Impression: Normal chest
--- NOTE | 2024-05-01 02:04 | ECG_ITS ---
Test Date: 2024-05-01 02:07:16 Measurements Intervals Cameron Rate: 78 P: 0 MD: 0 QRS: 42 QRSD: 86 T: 48 QT: 351 QTc: 400 Interpretive Statements ATRIAL FIBRILLATION WITH NORMAL VENTRICULAR RESPONSE BASELINE WANDER- II, III ABNORMAL ECG No previous ECG available for comparison Electronically Signed On 05-01-2024 07:00:00 [employer]PER[employer] by Mac Miles D.O.
--- NOTE | 2024-05-01 02:18 | PC.NURSE ---
pt got back into the room and remembered she had traveled outside the [place] to [place]. this RN updated the infectious disease questions
[2024-05-01 02:21] LABS: Basophils Percent Auto 0.4 % (0.2-1.2); Eosinophils Absolute Auto 0.2 K/mm3 (0-0.3); Eosinophils Percent Auto 4.9 % (0-4.4); Hematocrit 40.8 % (37.0-47.0); Hemoglobin 13.7 g/dL (12.0-15.0); Immature Granulocyte Absolute 0.01 K/mm3 (0.00-0.031); Immature Granulocyte Percent A 0.2 % (0-0.5); Lymphocytes Absolute Auto 2.11 K/mm3 (0.9-3.2); Lymphocytes Percent Auto 43.3 % (18.3-44.2); Mean Corpuscular HGB Conc 33.6 g/dl (32-36); Mean Corpuscular Hemoglobin 29.7 pg (26-34); Mean Corpuscular Volume 88.3 fl (80-100); Mean Platelet Volume 9.7 fl (7.4-10.4); Monocytes Absolute Auto 0.4 K/mm3 (0.1-0.6); Neutrophils Absolute Auto 2.1 K/mm3 (1.3-6.7); Neutrophils Percent Auto 42.2 % (45.5-73.1); Platelet Count Result 193 k/mm3 (150-375); Red Blood Count 4.62 M/mm3 (4.2-5.4); Red Cell Distribution Width 12.8 % (11.5-14.5); White Blood Count 4.9 K/mm3 (4.5-10.0)
[2024-05-01 02:29] LABS: Alanine Aminotransferase 11 U/L (6-35); Albumin Level 3.6 g/dL (3.5-5.1); Alkaline Phosphatase 59 U/L (38-126); Anion Gap 3 mmol/L (4-12); Aspartate Amino Transferase 18 U/L (14-36); Bilirubin,Total 0.5 mg/dL (0.2-1.3); Blood Urea Nitrogen 17 mg/dL (7-17); Calcium 11.3 mg/dL (8.4-10.2); Carbon Dioxide 28 mmol/L (22-30); Chloride 105 mmol/L (98-107); Estimated Glomerular Filt Rate 53; Glucose 112 mg/dL (65-110); Potassium 4.2 mmol/L (3.4-5.0); Sodium 136 mmol/L (137-145)
[2024-05-01 03:00] LABS: Influenza A QL RT-PCR Negative (Negative); Influenza B QL RT-PCR Negative (Negative); RSV RNA, RT-PCR Negative (Negative); SARS-CoV-2 RNA PCR Positive (Negative)
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
[2024-05-01] MEDS: BENZONATATE 100 MG CAPSULE PO (05:15)
[2024-05-01] MEDS: guaiFENesin/DEXTROMETHORPHAN 10 ML UDC PO (05:15)
== END 2024-05-01 05:10 | disposition home or self-care (01) ==
PROVIDERS: Emergency Provider Student in an Organized Health Care Education/Training Program; PCP Family Medicine
DX: U07.1 COVID-19 (principal); E83.52 Hypercalcemia; I48.91 Unspecified atrial fibrillation; I10 Essential (primary) hypertension; J45.909 Unspecified asthma, uncomplicated; M81.0 Age-related osteoporosis without current pathological fracture; Z90.49 Acquired absence of other specified parts of digestive tract; Z77.22 Contact with and (suspected) exposure to environmental tobacco smoke (acute) (chronic); Z79.01 Long term (current) use of anticoagulants; Z79.899 Other long term (current) drug therapy
CPT/HCPCS: 36415; 71045; 80053; 85025; 87637; 93005; 99284; A9270

== ENCOUNTER 2024-07-11 11:10 | Outpatient (CLI) | payer MEDICARE, OTHER, SELFPAY ==
[2024-07-11 12:27] LABS: Creatinine Urine 85.6 mg/dL
[2024-07-11 12:59] LABS: Creatinine 24 Hour Urine 0.5 gm/24 (0.8-1.8); Total Volume 24 Hour Urine 700 ml
--- OUTSIDE RECORDS SUMMARY | 2024-07-14 13:00 | XMS_ITS | Continuity of Care Document ---
Author Name [facility] Organization [facility] Care Team Providers Care Stitching Machine Operator Name Role Phone [facility] Unavailable Unavailable Medications Combined list of outpatient medications from Department of Defense and Veterans Affairs facilities.Medications provided include 1) outpatient medications from the last 15 months, and 2) patient-reported medications. Medication Details Route Status Patient Instructions Prescription Expires Prescription Number Last Dispense Date Ordering Provider Order Date Order Qty Source CINACALCET HCL (cinacalcet HCl), 30 MG, TABLET, ORAL, AVKARE, 30 ea. BOTTLE Active [id number] 4 2023 45 Pharmac y Data Transac tion Service Facilit y ELIQUIS (APIXABAN), 5 MG, TABLET, ORAL, BMS PRIMARYCARE , 60 ea. BOTTLE Active [id number] 4 2023 180 Pharmac y Data Transac tion Service Facilit y ELIQUIS (APIXABAN), 5 MG, TABLET, ORAL, BMS PRIMARYCARE , 60 ea. BOTTLE Active [id number] 4 2023 180 Pharmac y Data Transac tion Service Facilit y ELIQUIS (APIXABAN), 5 MG, TABLET, ORAL, BMS PRIMARYCARE , 60 ea. BOTTLE Active [id number] 2023 180 Pharmac y Data Transac tion Service Facilit y IBANDRONATE SODIUM (ibandronat e sodium), 150 MG, TABLET, ORAL, [employer] 3 ea. BLIST PACK Active [id number] 2023 3 Pharmac y Data Transac tion Service Facilit y METOPROLOL SUCCINATE (metoprolol succinate), 25 MG, TAB ER 24H, ORAL, [employer] INC., 1000 ea. BOTTLE Cancele d [id number] : 2023 0 Pharmac y Data Transac tion Service Facilit y METOPROLOL SUCCINATE (metoprolol succinate), 50 MG, TAB ER 24H, ORAL, ACTAVIS/TEV A, 100 ea. BOTTLE Active [id number] 4 2023 30 Pharmac y Data Transac tion Service Facilit y METOPROLOL SUCCINATE (metoprolol succinate), 50 MG, TAB ER 24H, ORAL, G[employer] INC., 1000 ea. BOTTLE Active [id number] 2023 90 Pharmac y Data Transac tion Service Facilit y METOPROLOL SUCCINATE (metoprolol succinate), 50 MG, TAB ER 24H, ORAL, INGENUS PHARMAC, 100 ea. BOTTLE Cancele d [id number] : 2023 0 Pharmac y Data Transac tion Service Facilit y MONTELUKAST SODIUM (montelukas t sodium), 10 MG, TABLET, ORAL, XLCARE PHARMACE, 90 ea. BOTTLE Cancele d [id number] : 2023 0 Pharmac y Data Transac tion Service Facilit y MONTELUKAST SODIUM (montelukas t sodium), 10 MG, TABLET, ORAL, XLCARE PHARMACE, 90 ea. BOTTLE Active [id number] 4 2023 90 Pharmac y Data Transac tion Service Facilit y MONTELUKAST SODIUM (montelukas t sodium), 10 MG, TABLET, ORAL, XLCARE PHARMACE, 90 ea. BOTTLE Active [id number] 4 2023 90 Pharmac y Data Transac tion Service Facilit y SERTRALINE HCL (sertraline HCl), 25 MG, TABLET, ORAL, EXELAN PHARMACE, 180 ea. BOTTLE Active [id number] 4 2023 30 Pharmac y Data Transac tion Service Facilit y Immunizations Combined list of available immunizations from the Department of Defense and Veterans Affairs facilities. Immunization Series Date Given Administered By Site Reaction Lot Number CVX Code Drug Epic Manager Status Comments Source COVID-19, mRNA, LNP-S, PF, 30 mcg/0.3 mL dose 2020 PADMINI, [employer] [place] (PFR) Not Given COVID-19, mRNA, LNP-S, PF, 30 mcg/0.3 mL dose [facility] Influenza vaccine, quadrivalent, adjuvanted 2019 ALUL, () Not Given Influenza vaccine, quadrival ent, adjuvante d DoD Social History Combined list of available smoking, tobacco, and other social history from Department of Defense and Veterans Affairs facilities. Social History Type Response Date Comment [facility] e This section is an empty social history section. DoD
== END 2024-07-11 11:11 | disposition home or self-care (01) ==
LOC: ANHLAB 11:11
PROVIDERS: PCP Internal Medicine; Visit Provider Internal Medicine
DX: M81.0 Age-related osteoporosis without current pathological fracture (principal); E21.0 Primary hyperparathyroidism; E04.2 Nontoxic multinodular goiter
CPT/HCPCS: 81050; 82340; 82570

== ENCOUNTER 2024-07-18 17:17 | Emergency (ER) | payer MEDICARE, OTHER, SELFPAY ==
[2024-07-18 17:19] VITALS: BP 161/92; PULSE 82; RESP 20; TEMP 36.8; O2SAT 100
--- NOTE | 2024-07-18 17:23 | ECG_ITS ---
Test Date: 2024-07-18 17:28:35 Measurements Intervals [place] Rate: 76 P: 0 NH: 0 QRS: 48 QRSD: 104 T: 22 QT: 367 QTc: 413 Interpretive Statements ATRIAL FIBRILLATION ABNORMAL RHYTHM ECG Compared to ECG 05/01/2024 02:07:16 No significant changes Electronically Signed On 07-18-2024 21:10:56 FUNDING COORDINATOR by Mike Gordon M.D.
--- NOTE | 2024-07-18 17:45 | ED.SOB ---
HPI - SOB/Dyspnea General Chief Complaint: Shortness of Breath/Dyspnea Stated Complaint: A-FIB/SOB/Fast Hear Rate Time Seen by Provider: 07/18/24 17:20 Source: patient, family (Son) and RN notes reviewed Mode of arrival: ambulatory Limitations: no limitations History of Present Illness HPI Narrative: Patient presents today complaining of palpitations, chest heaviness, shortness of breath, nausea, dizziness. Nausea started 3 days ago but the remainder of symptoms started this morning. Chest heaviness and shortness of breath or with better when she is lying flat but worse when standing up. Patient believes her symptoms began this morning after she was under some stress taking care of her . States she does have history of AFib for which he is on Eliquis and metoprolol, also has history of COPD and hypertension. She took some Tylenol this morning for her symptoms which did not seem to provide relief. Patient reports due to her nausea she has not had any food to eat for 3 days. During this time of decreased oral intake she did continue to urinate. Denies abdominal pain. Related Data Allergies Allergy/AdvReac Type Severity Reaction Status Date / Time Iodinated Contrast Media Allergy Severe Other Verified 07/18/24 18:05 Review of Systems Review of Systems: CONSTITUTIONAL: Denies body aches, fever, chills, or sweats. EYES: Denies visual changes, redness, or discharge. ENT: Denies rhinorrhea, congestion, sore throat, or otalgia. CARDIOVASCULAR: + chest heaviness, palpitations RESPIRATORY:+ shortness of breath GASTROINTESTINAL: Denies abdominal pain, vomiting, or diarrhea.+ nausea GENITOURINARY: Denies dysuria or hematuria. SKIN: Denies rash, itching, or wounds. MUSCULOSKELETAL: Denies back pain, joint pain, or myalgia. NEUROLOGIC: Denies headache, numbness, tingling, or weakness. PSYCH: Denies depression or anxiety. [facility] Past Medical History Medical History On anticoagulant therapy Atrial fibrillation Spastic dysphonia Otalgia of both ears Asthma Encounter for immunization Osteoporosis Essential hypertension Overweight (BMI 25.0-29.9) Weight loss Dyspnea Surgical History Surgical History Hx of cholecystectomy Family History Family History Mother Colon cancer Heart disease CHF Father Old age Social History Social History Social History: but with dementia filed for divorce; resides in the house together but currently living in the basement Smoking status: Never smoker Second hand tobacco smoke exposure: No Additional smoking assessment comments: Exposed to secondhand smoke her and father Alcohol intake: never Substance use: never Substance use type: does not use Lack of Transportation: No Lack of Food: Never True Current Housing: I Have Housing Concerned About Future Housing: No Difficulty Paying Gas/Electric Bills: No Difficulty Paying for Meds: No Currently Unemployed: No Education: High School Diploma/GED Difficulty w/ Childcare or Family Care: No Living arrangements: with family Gender identity (if verbalized by the patient): Female Spiritual care concerns: No Agree to blood products: Yes Comments At time of signature, I have reviewed and agree with nursing past medical, surgical, social and family history unless otherwise noted. Please see nursing chart for further information. There is no relevant family history pertinent to the presenting complaint Exam Narrative: GENERAL: Ill-appearing, well-nourished. HEAD: Normocephalic, atraumatic. EYES: EOMI. No redness or drainage. Conjunctivae normal. ENT: Mucous membranes pink and moist. Nares clear. No rhinorrhea. NECK: Normal AROM. Supple. No lymphadenopathy. CHEST: Clear to auscultation. Mildly labored. HEART: irregularly irregular. No murmur appreciated. Normal peripheral pulses. ABDOMEN: Soft, nontender, nondistended, normal active bowel sounds. EXTREMITIES: Normal range of motion. No edema. SKIN: Warm, dry, no rash. Capillary refill normal. Normal skin turgor. NEURO: No focal deficits. Alert and oriented x3. PSYCH: Normal affect. No signs of depression or anxiety. Course Course Level of Care: Express Care Visit Vital Signs Vital signs: Vital Signs Temperature 98.2 F 07/18/24 17:19 Pulse Rate 82 07/18/24 17:19 Respiratory Rate 20 07/18/24 17:19 Blood Pressure 161/92 H 07/18/24 17:19 Pulse Oximetry 100 07/18/24 17:19 Oxygen Delivery Room Air 07/18/24 17:19 Temperature 98.2 F 07/18/24 17:19 Pulse Rate 82 07/18/24 17:19 Respiratory Rate 20 07/18/24 17:19 Blood Pressure 161/92 H 07/18/24 17:19 Pulse Oximetry 100 07/18/24 17:19 Oxygen Delivery Room Air 07/18/24 17:19 Reviewed Transfer Transfered to: [facility] Transportation: Other (Private vehicle. Patient declines EMS transport.) Transfer rationale: Shortness of breath, dizziness, palpitations Accepting physician: Crow Rashid comments: Report given to ELIUD Shields MDM - SOB/Dyspnea MDM Narrative Medical decision making narrative: Due to patient's symptoms, exam, she will be transferred to the ER for further evaluation and treatment. Differential Diagnosis Differential diagnosis: Likely acute exacerbation of chronic obstructive airways disease, congestive heart failure, community acquired pneumonia and pulmonary embolism Critical Care Time Critical Care Time Critical Care Time: No Discharge Plan Discharge Clinical Impression: Shortness of breath, Palpitations, Dizziness Patient Disposition: Acute Care Hospital Condition: Stable Patient Language: Sri [place]an Prescriptions: No Action alprazolam 0.25 mg tablet 0.125 mg PO TID Qty: 40 0RF (DME) Blood Pressure Cuff Misc See Rx Instructions .Route Qty: 1 0RF Rx Instructions: Check blood pressure every morning Eliquis 5 mg Tablet 5 mg PO Q12HR Qty: 60 1RF levalbuterol tartrate [Xopenex HFA] 45 mcg/actuation HFA aerosol inhaler 2 inh inhalation Q6H Qty: 15 0RF acetaminophen 500 mg capsule 1,000 mg PO Q6H PRN (Reason: pain) Qty: 30 0RF metoprolol succinate 25 mg tablet extended release 24 hr 50 mg PO DAILY Qty: 180 2RF tramadol 50 mg tablet 50 mg PO Q6H PRN (Reason: pain) Qty: 30 0RF montelukast 10 mg tablet 10 mg PO QHS Qty: 90 3RF Follow-up/Referrals: Vitor Tejada MD [Primary Care Provider] - Time of Disposition: 17:46
== END 2024-07-18 17:51 | disposition short-term general hospital (02) ==
PROVIDERS: Emergency Provider Nurse Practitioner; PCP Internal Medicine
DX: R06.02 Shortness of breath (principal); R00.2 Palpitations; R42 Dizziness and giddiness; I48.91 Unspecified atrial fibrillation; I10 Essential (primary) hypertension; J44.9 Chronic obstructive pulmonary disease, unspecified; J38.3 Other diseases of vocal cords; Z79.01 Long term (current) use of anticoagulants
CPT/HCPCS: 93005; 99213; G0463

== ENCOUNTER 2024-07-18 18:03 | Emergency (ER) | payer MEDICARE, OTHER, SELFPAY ==
[2024-07-18] VITALS (7 sets, daily range): BP systolic 128–166; BP diastolic 74–107; PULSE 71–85; RESP 12–20; TEMP 36.6–36.7; O2SAT 99–100
--- NOTE | ~2024-07-18 | XR_ITS ---
EXAMINATION: XR chest 2V DATE: 07/18/2024 18:52 INDICATION: Palpitations. TECHNIQUE: Frontal and lateral views of the chest were obtained. COMPARISON: Chest single view 05/01/2024 FINDINGS: There is no pneumonia, pleural effusion, or pneumothorax. The heart size is normal. IMPRESSION: 1. No acute cardiopulmonary disease. Reviewed, dictated and finalized at location A. CTOR ADVERTISING
--- NOTE | ~2024-07-18 | CT_ITS ---
EXAMINATION: CT abdomen pelvis wo con DATE: 07/18/2024 21:04 INDICATION: Upper abdominal pain. Nausea and vomiting. TECHNIQUE: Computed tomography (CT) of the abdomen and pelvis was performed without intravenous contr ast. Automated exposure control and iterative reconstruction technique were employed. The dose-length product was 373.53 mGy-cm. COMPARISON: CT abdomen and pelvis 02/25/2020 FINDINGS: The visualized portions of the lung bases demonstrate mild atelectasis. No pleural effusion . There is left atrial enlargement of the heart. There are coronary artery calcifications. No pericar dial effusion. There is a small sliding hiatal hernia. There is a 15 mm cyst in the liver. The spleen , pancreas, and adrenal glands are normal. There is a 14 mm cyst in right kidney. There is a 1 mm sto ne in left kidney. There is a 13 mm uterine fibroid. There is diverticulosis of the colon without loreto dence of diverticulitis. There are no dilated loops of bowel. The appendix is not visualized. There i s calcified atherosclerosis of the aorta and many of the other arteries. Vertebral body heights are n ormal. There is no free intraperitoneal fluid. There is severe lumbar spondylosis. There is a nonaggr essive lytic lesion in left ilium with sclerotic margin without change, likely benign. IMPRESSION: 1. Small sliding hiatal hernia. Reviewed, dictated and finalized at location A. D LEADER
--- NOTE | 2024-07-18 18:05 | ECG_ITS ---
Test Date: 2024-07-18 18:23:56 Measurements Intervals [place] Rate: 75 P: 0 ME: 0 QRS: 17 QRSD: 84 T: 19 QT: 354 QTc: 396 Interpretive Statements ATRIAL FIBRILLATION LOW QRS VOLTAGE IN PRECORDIAL LEADS [QRS DEFLECTION < 1.0 mV IN CHEST LEADS] ABNORMAL RHYTHM ECG Compared to ECG 07/18/2024 17:28:35 Low QRS voltage now present Electronically Signed On 07-18-2024 21:08:01 TOWER OBSERVER by Mike Gordon M.D.
--- OUTSIDE RECORDS SUMMARY | 2024-07-18 18:06 | XMS_ITS | Continuity of Care Document ---
Author Organization [facility] Address [address] [place] [address] [place] [address] Phone Care Team Providers Care Packaging Clerk Name Role Phone Davion Can DO Unavailable Unavailable Advance Directives Directive Yes / No Effective Date File Name No Information Encounters Encounter Description Practice Location Reason(s) For Visit Diagnoses Date Provider Providers Copied on Encounter [facility], [address], [place], [place], [id number], [place] tel:[phone] [facility] No Information Pamella Burleson. [address] [place], [address], [place]. tel: [phone] Family History Family Member Type Diagnosis Age At Onset No Information Payers Payer name Insurance type Covered constitution party ID Authoriza tion(s) [facility] [id number] Social History Type Description Quantity Date Captured [...]
--- OUTSIDE RECORDS SUMMARY | 2024-07-18 18:06 | XMS_ITS | Continuity of Care Document ---
Author Name [facility] Organization [facility] Care Team Providers Care Hi Low Truck Driver Name Role Phone [facility] Unavailable Unavailable Medications Combined list of outpatient medications from Department of Defense and Veterans Affairs facilities.Medications provided include 1) outpatient medications from the last 15 months, and 2) patient-reported medications. Medication Details Route Status Patient Instructions Prescription Expires Prescription Number Last Dispense Date Ordering Provider Order Date Order Qty Source CINACALCET HCL (cinacalcet HCl), 30 MG, TABLET, ORAL, AVKARE, 30 ea. BOTTLE Active [id number] 4 2023 45 Pharmac y Data Transac tion Service Facilit y ELIQUIS (APIXABAN), 5 MG, TABLET, ORAL, BMS PRIMARYCARE , 60 ea. BOTTLE Active [id number] 2023 180 Pharmac y Data Transac tion Service Facilit y ELIQUIS (APIXABAN), 5 MG, TABLET, ORAL, BMS PRIMARYCARE , 60 ea. BOTTLE Active [id number] 4 2023 180 Pharmac y Data Transac tion Service Facilit y ELIQUIS (APIXABAN), 5 MG, TABLET, ORAL, BMS PRIMARYCARE , 60 ea. BOTTLE Active [id number] 4 2023 180 Pharmac y Data Transac tion Service Facilit y IBANDRONATE SODIUM (ibandronat e sodium), 150 MG, TABLET, ORAL, [employer]., 3 ea. BLIST PACK Active [id number] 2023 3 Pharmac y Data Transac tion Service Facilit y METOPROLOL SUCCINATE (metoprolol succinate), 25 MG, TAB ER 24H, ORAL, [employer] INC., 1000 ea. BOTTLE Cancele d [id number] : 2023 0 Pharmac y Data Transac tion Service Facilit y METOPROLOL SUCCINATE (metoprolol succinate), 50 MG, TAB ER 24H, ORAL, ACTAVIS/TEV A, 100 ea. BOTTLE Active [id number] 2023 30 Pharmac y Data Transac tion Service Facilit y METOPROLOL SUCCINATE (metoprolol succinate), 50 MG, TAB ER 24H, ORAL, GSTigerlily, INC., 1000 ea. BOTTLE Active [id number] 4 2023 90 Pharmac y Data Transac tion Service Facilit y METOPROLOL SUCCINATE (metoprolol succinate), 50 MG, TAB ER 24H, ORAL, INGENUS PHARMAC, 100 ea. BOTTLE Cancele d [id number] : 2023 0 Pharmac y Data Transac tion Service Facilit y MONTELUKAST SODIUM (montelukas t sodium), 10 MG, TABLET, ORAL, XLCARE PHARMACE, 90 ea. BOTTLE Cancele d [id number] : 2023 0 Pharmac y Data Transac tion Service Facilit y MONTELUKAST SODIUM (montelukas t sodium), 10 MG, TABLET, ORAL, XLCARE PHARMACE, 90 ea. BOTTLE Active [id number] 2023 90 Pharmac y Data Transac tion Service Facilit y MONTELUKAST SODIUM (montelukas t sodium), 10 MG, TABLET, ORAL, XLCARE PHARMACE, 90 ea. BOTTLE Active [id number] 4 2023 90 Pharmac y Data Transac tion Service Facilit y SERTRALINE HCL (sertraline HCl), 25 MG, TABLET, ORAL, EXELAN PHARMACE, 180 ea. BOTTLE Active [id number] 4 2023 30 Pharmac y Data Transac tion Service Facilit y Immunizations Combined list of available immunizations from the Department of Defense and Veterans Affairs facilities. Immunization Series Date Given Administered By Site Reaction Lot Number CVX Code Drug Cereal Chemist Status Comments Source COVID-19, mRNA, LNP-S, PF, 30 mcg/0.3 mL dose 2020 PADMINI, [employer] [place] (PFR) Not Given COVID-19, mRNA, LNP-S, PF, 30 mcg/0.3 mL dose [facility] Influenza vaccine, quadrivalent, adjuvanted 2019 ALUL, () Not Given Influenza vaccine, quadrival ent, adjuvante d DoD Social History Combined list of available smoking, tobacco, and other social history from Department of Defense and Veterans Affairs facilities. Social History Type Response Date Comment [facility] e This section is an empty social history section. DoD
--- OUTSIDE RECORDS SUMMARY | 2024-07-18 18:06 | XMS_ITS | Patient Health Summary ---
Author Organization [facility] Address [address] [place] [address] Care Team Providers Care Jewel Waxer Name Role Phone Unavailable Primary Care Provider Unavailabl e Note from [facility],non-owned Affiliates and Associated Physician Practices is amultiple site organization consisting of ambulatory clinics and hospital sitesin [place], [place], [place] and [place]. This disclosure is being madepursuant to the Care Everywhere program and may not contain all information available regarding this patient. Last updated 18.[facility] Allergies * Contrast-Iodinated Agents For Ct/Other(Unknown) Medications * Be aware that medications may not be up to date on this document. Alwaysverify current medications with the patient. * metoprolol succinate XL 24hr (Toprol XL) 50 MG tablet Take 1 (one) tablet by mouth once daily * montelukast (Singulair) 10 MG tablet Take 1 (one) tablet by mouth at bedtime * apixaban (Eliquis) 5 MG tablet Take 1 (one) tablet by mouth every 12 hours Active Problems Problem Noted Date Diagnosed Date Adjustment disorder with mixed anxiety and depre ssed mood 09/25/2023 Permanent atrial fibrillation 08/10/2023 Essential hypertension 07/29/2022 Chronic anticoagulation 07/29/2022 09/26/19 24 Social History Tobacco Use Types Packs/Day Years Used Date Smoking Tobacco: Never Passive Smoke Exposure: Past Smokeless Tobacco: Never Tobacco Cessation:Counseling Given: Not Answered Alcohol Use Standard Drinks/Week Comments Never 0 (1 standard drink = 0.6 oz pur e alcohol) AUDIT-C Answer Date Recorded Q1: How often do you have a drink containing alcohol? Never 09/26/2023 Q2: How many drinks containi ng alcohol do you have on a typical day when you are drinking? Patient does not drink Q3: How often do you have si x or more drinks on one occasion? Never 09/26/2023 Overall Financial Resource Strain (CARDIA) Answe r Date Recorded How hard is it for you to pa y for the very basics like food, housing, medical care, and heating? Not very hard 09/26/2023 [facility] [place] [facility] Occup[facility] ional [facility] - Occupational Stress Questionnaire Answer Date Recorded Do you feel stress - tense, restless, nervous, or anxious, or unable to sleep at night because your mind is troubled all the time - these days? Very much 09/26/2023 Hunger Vital Sign Answer Date Recorded Within the past 12 months, y ou worried that your food would run out before you got the money to buy more. Never true 09/26/19 24 Within the past 12 months, t he food you bought just didn't last and you didn't have money to get more. Never true 09/26/2023 PRAPARE - Transportation Answer Date Re corded In the past 12 months, has l ack of transportation kept you from medical appointments or from getting medications? No 11/2023 In the past 12 months, has l ack of transportation kept you from meetings, work, or from getting things needed for daily living? No 09/26/2023 Housing Stability Vital Sign Answer Fei e Recorded In the last 12 months, was t here a time when you were not able to pay the mortgage or rent on time? No 09/26/2023 In the last 12 months, how many places have you lived? 1 09/26/2023 In the last 12 months, was t here a time when you did not have a steady place to sleep or slept in a long term (including now)? No 09/26/2023 Sex and Gender Information Value Date Recorded Sex Assigned at Not on file Gender Identity Not on file Sexual Orientation Not on file Last Filed Vital Signs Vital Sign Reading Time Taken Comments Blood Pressure 130/88 10/02/2023 7:01 AM CDT Pulse 64 10/02/2023 7:01 AM CDT Temperature 36.8 ??C (98.2 ??F) 10/02/2023 7:01 AM CD T Respiratory Rate 16 10/02/2023 7:01 AM CDT Oxygen Saturation 97% 10/02/2023 7:01 AM CDT Inhaled Oxygen Concentration - - Weight 67.6 kg (149 lb) 09/26/2023 12:37 AM CDT Height 160 cm (5' 3 ) 09/26/2023 12:37 AM CDT Body Mass Index 26.39 09/26/2023 12:37 AM CDT Procedures * CARDIAC EKG ORDER(Performed 10/01/2023) * URINALYSIS REFLEX MICROSCOPIC REFLEX CULTURE(Performed 09/29/2023) * EKG 12-LEAD(Performed 09/29/2023) Performed for Essential hypertension * CREATININE BLOOD(Performed 09/27/2023) Results * CARDIAC EKG ORDER (10/01/2023 2:20 PM CDT) Narrative 10/01/2023 2:20 PM CDT Ordered by an unspecified provider. Scanned Document CARDIAC SERVICES ORD ERABLES * URINALYSIS REFLEX MICROSCOPIC REFLEX CULTURE (09/29/2023 12:37 PM CDT) Color UA Yellow Straw, Yellow, Dark Yellow 09/29/2023 12:55 PM CDT [facility] Clarity UA Clear Clear 09/29/2023 12:55 PM CDT [facility] Glucose UA Negative Negative 09/29/2023 12:55 PM CDT [facility] Bilirubin UA Negative Negative 09/29/2023 12:55 PM CDT [facility] Ketone UA Negative Negative 09/29/2023 12:55 PM CDT [facility] Specific [place] UA 1.012 1.005 - 1.030 09/29/2023 12:55 PM CDT [facility] Blood UA Negative Negative 09/29/2023 12:55 PM CDT [facility] pH UA 6.0 5.0 - 8.0 pH 09/29/2023 12:55 PM CDT [facility] Protein UA Negative Negative 09/29/2023 12:55 PM CDT [facility] Urobilinogen UA Negative Negative mg/dL 09/29/2023 12:55 PM CDT [facility] Nitrite UA Negative Negative 09/29/2023 12:55 PM CDT [facility] Leukocyte UA Negative Negative 09/29/2023 12:55 PM CDT [facility] Urine Microscopy Urine microscopy not indicated 09/29/2023 12:55 PM CDT [facility] Reflex Status Culture not indicated 09/29/2023 12:55 PM CDT [facility] Urine URINE SPECIMEN OBTAINED BY CLEAN CATCH PROCEDURE / Unknown Collection / Unknown 09/29/2023 12:37 PM CDT 09/29/2023 12:38 PM CDT Narrative [facility] - 09/29/2023 12:55 PM CDT Monae Owens SURFACE LAY OUT TECHNICIAN-WHEEL B[facility]ER LAB - URINALYSIS ORDERABLES Performing Organization Address City/[facility]/ZIP Co de Phone Number [facility] [address] * EKG 12-LEAD (09/29/2023 9:02 AM CDT) Ventricular Rate 99 BPM [facility] QRS Duration ms 88 ms [facility] Q-T Interval ms 328 ms [facility] QTC Calculation (Bezet) 420 ms [facility] Calculated R [place] 30 degrees [facility] Calculated T [place] 49 degrees [facility] Interpretation EKG ATRIAL FIBRILLATION ABNORMAL ECG Confirmed by PAPITO BENITEZ MD ([id number]) on 09/30/2023 2:55:38 PM [facility] 09/29/2023 9:02 AM CDT 09/30/2023 2:55 PM CDT Cyndi Rueda MD ECG ORDERABLES Performing Organization Address [facility] Co de Phone Number [facility] * (ABNORMAL) CREATININE BLOOD (09/27/2023 6:30 AM CDT) Creatinine 1.01 0.57 - 1.11 mg/dL 09/27/2023 6:57 AM CDT [facility] eGFR 55(L) >90 mL/min/1.7 3m2 09/27/2023 6:57 AM CDT [facility] Comment:The GFR result was c alculated using the updated CKD-EPI Creatinine Equation (2020). Blood BLOOD SPECIMEN / Unknown Lab Venipuncture / Unknown 09/27/2023 6:30 AM CDT 09/27/2023 6:39 AM CDT Luke Navarro DO LAB - CHEMISTRY NELLA ZALDIVAR [facility] [address] [place] [address], [facility]
--- OUTSIDE RECORDS SUMMARY | 2024-07-18 18:07 | XMS_ITS | Referral Summary ---
Author Organization [facility] Address [address] [place] [address] Care Team Providers Care Biodiesel Engineering Manager Name Role Phone Unavailable Primary Care Provider Unavailabl e Source Comments [facility],non-owned Affiliates and Associated Physician Practices is amultiple site organization consisting of ambulatory clinics and hospital sitesin [place], [place], [place] and [place]. This disclosure is being madepursuant to the Care Everywhere program and may not contain all information available regarding this patient. Last updated 18.[facility] [employer] Allergies Active Allergy Reactions Criticality Noted Date Comments Contrast-Iodinated Agents For Ct/Other Unknown 09/25/2023 Medications * Be aware that medications may not be up to date on this document. Alwaysverify current medications with the patient. Medication Sig Dispensed Refills Start Date End Date Status metoprolol succinate XL 24hr (Toprol XL) 50 MG tabletIndications:Hyper tension Take 1 (one) tablet by mouth once daily Active montelukast (Singulair) 10 MG tabletIndications:Asthm a,Perennial Allergic Rhinitis Take 1 (one) tablet by mouth at bedtime Active apixaban (Eliquis) 5 MG tabletIndications:Throm boembolism secondary to Atrial Fibrillation Take 1 (one) tablet by mouth every 12 hours Active Active Problems Problem Noted Date Diagnosed Date [...] care, and heating? Not very hard 09/26/2023 [facility] [place] of Occupat ional Health - Occupational Stress [...] place to sleep or slept in a mcc (including now)? No 09/26/2023 Sex and Gender [...] Mass Index 26.39 09/26/2023 12:37 AM CDT Functional Status Functional Status Response Date of Assess ment Is person deaf or have serious hearing difficult y? No 09/26/2023 Is person blind or have serious difficulty seein g? No 09/26/2023 Does person have serious dif ficulty walking/climbing stairs? No 09/26/2023 Does person have difficulty dressing/bathing? No 09/26/2023 Does person have difficulty doing errands alone? No 09/26/2023 Cognitive Status Response Date of Assessm ent Does person have difficulty concentrating/remembering/making decisions? No 09/26/2023 Plan of Treatment Not on file Advance Directives * Full Code (Latest Code Status on File) Date Activated Date Inactivated Comments 09/26/2023 12:43 AM 10/02/2023 1:18 PM
--- OUTSIDE RECORDS SUMMARY | 2024-07-18 18:07 | XMS_ITS | Referral Summary ---
Author Organization [facility] Address [address] [place] [address] Care Team Providers Care Hoop Maker Helper Machine Name Role Phone Radha Tolentino MD Primary Care Provider [phone] Vitor Tejada MD Unavailable [phone] Encounters Date Type Department Care Team Description 07/12/2024 Orders Only [facility] Floor [address] [place] [address] Sharon Gotti, RN Hyperparathyroidism (HCC) (Primary Dx) from Last 3 Months Allergies No known active allergies Medications loratadine (CLARITIN) 10 mg tablet Take 10 mg by mouth nightly 2 Active albuterol 2.5 mg /3 mL (0.083 %) nebulizer solution Take 2.5 mg by nebulization nightly 2 Active Boniva 150 mg tablet Take 1 tablet by mouth every 30 (thirty) days 2 Active montelukast (SINGULAIR) 10 mg tablet Take 1 tablet (10 mg total) by mouth nightly at bedtime 3 Active Eliquis 5 mg tabletIndication s:Persistent atrial fibrillation (HCC) TAKE 1 TABLET EVERY 12 HOURS 180 tablet 3 4 Active metoprolol XL (TOPROL-XL) 50 mg extended release tabletIndication s:Persistent atrial fibrillation (HCC) Take 1 tablet (50 mg total) by mouth daily 90 tablet 3 4 Active Active Problems Problem Noted Date Diagnosed Date Permanent atrial fibrillation (CMS/HCC) 08/10/19 24 Psychosocial stressors 08/10/2022 Longstanding persistent atrial fibrillation (CMS /HCC) 07/29/2022 Chronic anticoagulation 07/29/2022 Essential hypertension 07/29/2022 Weight loss 07/29/2022 Social History Tobacco Use Types Packs/Day Years Used Date Smoking Tobacco: Never Tobacco Cessation:Counseling Given: Not Answered Personal Safety Answer Date Recorded Getting School Help Needed Not on file 06/25 Comments Unknown Sex and Gender Information Value Date Recorded Sex Assigned at Not on file Legal Sex Female 7:13 PM SENIOR SOFTWARE ARCHITECT Gender Identity Not on file Sexual Orientation Not on file Last Filed Vital Signs Vital Sign Reading Time Taken Comments Blood Pressure 148/78 08/10/2023 10:48 AM SENIOR SOFTWARE ARCHITECT Pulse 74 08/10/2023 10:48 AM SENIOR SOFTWARE ARCHITECT Temperature - - Respiratory Rate - - Oxygen Saturation 99% 08/10/2023 10:48 AM SENIOR SOFTWARE ARCHITECT Inhaled Oxygen Concentration - - Weight 68.5 kg (151 lb) 08/10/2023 10:48 AM SENIOR SOFTWARE ARCHITECT Height 160 cm (5' 3 ) 08/10/2023 10:48 AM SENIOR SOFTWARE ARCHITECT Body Mass Index 26.75 08/10/2023 10:48 AM SENIOR SOFTWARE ARCHITECT Plan of Treatment Not on file Insurance MEDICARE [employer] MEDICARE FOR [facility] MEDICARE Care Teams Hoop Maker Helper Machine Relationship Specialty Start Date End Date Radha Tolentino MD PCP - General Family Medicine 11/19/21 Vitor Tejada MD [address] [address] Referring Physician Internal Medicine 07/08/24
--- OUTSIDE RECORDS SUMMARY | 2024-07-18 18:07 | XMS_ITS | Clinical Summary ---
Author Organization [facility] Address [address] [place] [address] Care Team Providers Care Die Repairer Forging Name Role Phone Radha Tolentino MD Primary Care Provider Vitor Tejada MD Unavailable [phone] Allergies No known active allergies Medications loratadine [...] 07/29/2022 Essential hypertension 07/29/2022 Weight loss 07/29/2022 Encounters Date Type Department Care Team Description 07/12/2024 Orders Only [facility] [address] [facility] Floor 5 [place] [id number] Sharon Gotti, NEHAL Hyperparathyroidism (HCC) (Primary Dx) from Last 3 Months Medical History Medical History Date Comments Primary hypertension Atrial fibrillation (CMS/HCC) (HCC) 11/25/2021 Osteoporosis Social History Tobacco Use Types Packs/Day Years Used Date Smoking Tobacco: Never Tobacco Cessation:Counseling Given: Not Answered Personal Safety Answer Date Recorded Getting School Help Needed Not on file 06/25 Comments Unknown Sex and Gender Information Value Date Recorded Sex Assigned at Not on file Legal Sex Female 7:13 PM DEBURRING TECHNICIAN Gender Identity Not on file Sexual Orientation Not on file Obstetrics History Last Filed Vital Signs Vital Sign Reading Time Taken Comments Blood Pressure 148/78 08/10/2023 10:48 AM DEBURRING TECHNICIAN Pulse 74 08/10/2023 10:48 AM DEBURRING TECHNICIAN Temperature - - Respiratory Rate - - Oxygen Saturation 99% 08/10/2023 10:48 AM DEBURRING TECHNICIAN Inhaled Oxygen Concentration - - Weight 68.5 kg (151 lb) 08/10/2023 10:48 AM DEBURRING TECHNICIAN Height 160 cm (5' 3 ) 08/10/2023 10:48 AM DEBURRING TECHNICIAN Body Mass Index 26.75 08/10/2023 10:48 AM DEBURRING TECHNICIAN Plan of Treatment Health Maintenance Due Date Last Done Comments Depression Screening 1938 Fall Risk Assessment 1938 DTaP/Tdap/Td Vaccine (1 - Tdap) 1949 Zoster Vaccine (1 of 2) 1988 Pneumococcal vaccine 65+ (1 of 1 - PCV) 2003 Well Visit 65+ 2003 Covid-19 Vaccine ( - season) 2024 05/21/2021, 08/16/2020, 07/25/2020 Influenza Vaccine (#1) 2024 , 02/28/2020, 04/19/2019 Insurance MEDICARE FOR LIFE MEDICARE FOR LIFE MEDICARE Care Teams Die Repairer Forging Relationship Specialty Start Date End Date Radha Tolentino MD PCP - General Family Medicine 11/19/21 Vitor Tejada MD [address] [place] [address] Referring Physician Internal Medicine 07/08/24
--- OUTSIDE RECORDS SUMMARY | 2024-07-18 18:07 | XMS_ITS | Clinical Summary ---
Author Organization [facility] Address [address] [place] [address] Care Team Providers Care Booth Cashier Name Role Phone Unavailable Primary Care Provider Unavailabl e Source Comments [facility],non-owned Affiliates and Associated Physician Practices is amultiple site organization consisting of ambulatory clinics and hospital sitesin [place], [place], [place] and [place]. This disclosure is being madepursuant to the Care Everywhere program and may not contain all information available regarding this patient. Last updated 18.[facility] [employer] Allergies Active Allergy Reactions Criticality Noted Date [...] care, and heating? Not very hard 09/26/2023 [facility] [place] of Occupat ional Health - Occupational Stress [...] place to sleep or slept in a longterm (including now)? No 09/26/2023 Sex and Gender [...] Mass Index 26.39 09/26/2023 12:37 AM CDT Plan of Treatment Health Maintenance Due Date Last Done Comments BONE DENSITY TESTING 1940 MEDICARE AWV ? 12 MONTHS 1940 DTAP/TDAP/TD VACCINES (1 - Tdap) 1957 PNEUMOCOCCAL VACCINE 50+ (1 of 1 - PCV) 1988 ZOSTER VACCINE (1 of 2) 1988 Respiratory Syncytial Virus (RSV) Vaccine Pt: or over 60 yrs (1 - 1-dose 75+ series) 2013 COVID-19 VACCINE ( - 2023-2 5 season) 2024 INFLUENZA VACCINE (#1) 2024 DEPRESSION SCREENING 06/22/2024 HEPATITIS B VACCINE Aged Out No longe r eligible based on patient's age to complete this topic HIB VACCINE Aged Out No longer eligi ble based on patient's age to complete this topic HPV VACCINE Aged Out No longer eligi ble based on patient's age to complete this topic MENINGOCOCCAL (Group B) VACCINE Aged Out No longer eligible based on patient's age to complete this topic MENINGOCOCCAL VACCINE Aged Out No carlos alberto anamika eligible based on patient's age to complete this topic Advance Directives * Full Code (Latest Code Status on File) Date Activated Date Inactivated Comments 09/26/2023 12:43 AM 10/02/2023 1:18 PM
--- NOTE | 2024-07-18 18:21 | ED_ITS ---
HPI - Arrhythmia/Palpitations General Chief Complaint: Arrhythmia/Palpitations Stated Complaint: PALPATATIONS,DIZZINESS,A FIB RATE 70'S Time Seen by Provider: 07/18/24 18:20 Focused HPI: Patient is an 84-year-old female, with PMH of spastic dysphonia, who presents the ED with report of palpitations and shortness of breath. Patient reports she has not felt well over the weekend, with nausea, diarrhea, fevers. Thought she may have had food poisoning. Today she notes she received some bad news and then began having pain throughout her upper abdomen. States the pain lasted for few minutes before improving. She is now feeling intermittent chest pressure, dizziness, palpitations, as though her heart is beating fast at times. Hx of AFIB on eliquis. GENERAL: Elderly, mildly frail/thin, and in no acute distress. HEAD: Normocephalic, atraumatic. CHEST: Clear to auscultation. ?No respiratory distress. No significant focal lung sounds. HEART: Regular rate and rhythm.? NEURO: ?Alert and oriented x3. Patient screened in triage and initial orders placed.? ?Additional care and disposition to be based upon?diagnostic testing and treatment. Source: patient Mode of arrival: ambulatory Limitations: no limitations History of Present Illness HPI narrative: Patient is an 84-year-old female, with PMH of spastic dysphonia, who presents the ED with report of palpitations and shortness of breath. Patient reports she has not felt well over the weekend, with nausea, diarrhea, fevers. Thought she may have had food poisoning. Today she notes she received some bad news and then began having pain throughout her upper abdomen. States the pain lasted for few minutes before improving. She is now feeling intermittent chest pressure, dizziness, palpitations, as though her heart is beating fast at times. Hx of AFIB on eliquis. Related Data Allergies Allergy/AdvReac Type Severity Reaction Status Date / Time Iodinated Contrast Media Allergy Severe Other Verified 07/18/24 18:05 Review of Systems 2 Review of Systems: All systems reviewed & are unremarkable except as noted in HPI. All systems reviewed & are unremarkable except as noted in HPI and below PMFSH Past Medical History Medical History On anticoagulant therapy Atrial fibrillation Spastic dysphonia Otalgia of both ears Asthma Encounter for immunization Osteoporosis Essential hypertension Overweight (BMI 25.0-29.9) Weight loss Dyspnea Surgical History Surgical History Hx of cholecystectomy Family History Family History Mother Colon cancer Heart disease CHF Father Old age Social History Social History Social History: but with dementia filed for divorce; resides in the house together but currently living in the basement Smoking status: Never smoker Second hand tobacco smoke exposure: No Additional smoking assessment comments: Exposed to secondhand smoke her and father Alcohol intake: never Substance use: never Substance use type: does not use Lack of Transportation: No Lack of Food: Never True Current Housing: I Have Housing Concerned About Future Housing: No Difficulty Paying Gas/Electric Bills: No Difficulty Paying for Meds: No Currently Unemployed: No Education: High School Diploma/GED Difficulty w/ Childcare or Family Care: No Living arrangements: with family Gender identity (if verbalized by the patient): Female Spiritual care concerns: No Agree to blood products: Yes Exam 2 Narrative: GENERAL: Elderly, mildly frail/thin, non-toxic, in no acute distress. HEAD: Normocephalic, atraumatic. RESPIRATORY: Airway patent, respirations nonlabored. Clear to auscultation bilaterally, no rales, rhonchi, wheezing. CARDIOVASCULAR: Regular rate with irregular rhythm without murmurs, rubs, or gallops. Peripheral pulses intact. MUSCULOSKELETAL: Moves all extremities. No gross deformities. SKIN: Warm, dry, normal color. NEURO: A&O X3. Spastic quality to voice, but no aphasia. Cranial nerves II-XII grossly intact. Steady gait. No ataxic movements. No focal deficits. PSYCHIATRIC: Appropriate mood and affect. Normal interaction. Course Vital Signs Vital signs: Vital Signs Temperature 98.1 F 07/18/24 18:17 Pulse Rate 75 07/18/24 18:17 Respiratory Rate 20 07/18/24 18:17 Blood Pressure 150/107 H 07/18/24 18:17 Pulse Oximetry 100 07/18/24 18:17 Oxygen Delivery Room Air 07/18/24 18:17 Temperature 97.9 F 07/18/24 23:36 Pulse Rate 74 07/18/24 23:36 Respiratory Rate 18 07/18/24 23:36 Blood Pressure 153/74 H 07/18/24 23:36 Pulse Oximetry 99 07/18/24 23:36 Oxygen Delivery Room Air 07/18/24 20:09 MDM - Arrhythmia/Palpitations MDM Narrative Medical decision making narrative: MSE by CYNDI in triage. Care resumed by myself. Patient presented to ED with episode of upper abdominal pain, report of nausea and diarrhea over the weekend, now also reporting palpitations, lightheadedness. Vital signs are stable upon arrival. No tachycardia or tachypnea. Patient in no acute distress. EKG with rate controlled AFIB. No concerning ST changes. Patient does have history of AFib, on metoprolol and Eliquis. Compliant with these therapies. No concerning interval changes on repeat EKG. Troponin undetectable X2. BNP is very mildly elevated to 801, though patient does not appear acutely fluid overloaded. Chest x-ray is clear. Viral swabs are negative. Low suspicion for PE given chronic anticoagulation. Basic laboratory studies are otherwise unremarkable. No leukocytosis or anemia. Stable electrolytes. Urine with evidence of microscopic blood, no signs of infection. CT scan of abdomen/pelvis was obtained and showing hiatal hernia, otherwise unremarkable. No surgical findings. Patient was given a L of fluids in the ED. On re-evaluation, she is feeling much improved. Denies any further lightheadedness or palpitations. She was ambulated throughout the ED without issue or further symptoms. Feel she is safe for discharge home at this time. Patient did admit that the symptoms began after she received bad news today. Sx's likely acutely exacerbated by stress/anxiety. Patient is in agreement with plan. Feels comfortable going home. I did discuss presence of blood in urine sample and recommended that patient have follow-up with PCP and Urology for further evaluation of this. Discussed strict return precautions. Patient voiced understanding. Discharged in stable condition with family. Medical Records Attestation: I reviewed the patient's medical records. Lab Data Attestation: I reviewed the patient's lab results. 07/18/24 18:32 07/18/24 18:32 Labs: Lab Results 07/18/24 07/18/24 07/18/24 Range/Units 18:32 21:32 22:11 WBC 5.5 (4.5-10.0) K/mm3 RBC 4.38 (4.2-5.4) M/mm3 Hgb 13.2 (12.0-15.0) g/dL Hct 39.4 (37.0-47.0) % MCV 90.0 (80-100) fl MCH 30.1 (26-34) pg MCHC 33.5 (32-36) g/dl RDW 13.2 (11.5-14.5) % Plt Count 199 (150-375) k/mm3 MPV 9.7 (7.4-10.4) fl Immature Gran % (Auto) 0.2 (0-0.5) % Neut % (Auto) 60.7 (45.5-73.1) % Lymph % (Auto) 25.0 (18.3-44.2) % Parmer % (Auto) 10.9 H (2.6-8.5) % Eos % (Auto) 2.7 (0-4.4) % Baso % (Auto) 0.5 (0.2-1.2) % Lymph # (Auto) 1.37 (0.9-3.2) K/mm3 Parmer # (Auto) 0.6 (0.1-0.6) K/mm3 Eos # (Auto) 0.2 (0-0.3) K/mm3 Baso # (Auto) 0.0 (0.0-0.1) K/mm3 Abs Immat Gran (auto) 0.01 (0.00-0.031) K/mm3 Absolute Neuts (auto) 3.3 (1.3-6.7) K/mm3 Absolute Nucleated RBC 0.000 (0.0-0.012) K/mm3 Nucleated RBC % 0.0 (0.0-0.2) % PT 17.3 H (11.1-14.7) Seconds INR 1.4 APTT 32.4 (22.3-36.8) Seconds Sodium 136 L (137-145) mmol/L Potassium 3.8 (3.4-5.0) mmol/L Chloride 109 H (98-107) mmol/L Carbon Dioxide 19 L (22-30) mmol/L Anion Gap 8 (4-12) mmol/L BUN 12 D (7-17) mg/dL Creatinine 0.62 L (0.7-1.0) mg/dL Estim Creat Clear Calc 46 ml/min Estimated GFR > 60 (59 - ) Glucose 97 (65-110) mg/dL Calcium 9.7 (8.4-10.2) mg/dL Magnesium 2.1 (1.6-2.3) mg/dL Total Bilirubin 0.4 (0.2-1.3) mg/dL AST 17 (14-36) U/L ALT 12 (6-35) U/L Alkaline Phosphatase 52 (38-126) U/L Troponin I < 0.012 < 0.012 (0.000-0.034) ng/mL NT-Pro-B Natriuret Pep 801 H (19.9-100) pg/mL Total Protein 6.0 L (6.3-8.2) g/dL Albumin 3.8 (3.5-5.1) g/dL Lipase 68 (23-300) U/L Urine Color Isabela H (Yellow) Urine Appearance Clear (Clear) Urine pH 6.5 (5.0-9.0) Ur Specific Derwent 1.005 (1.001-1.035) Urine Protein Trace (Negative) mg/dL Urine Glucose (UA) Negative (Negative) mg/dL Urine Ketones Negative (Negative) mg/dL Ur Blood (Man) 3+ H (Negative) Urine Nitrate Negative (Negative) Urine Bilirubin Negative (Negative) Urine Urobilinogen 0.2 (<2.0) mg/dL Leukocyte Esterase Rfl Trace H (Negative) CHAVEZ/UL Urine RBC >100 H (0-2) /hpf Urine WBC 0-5 (0-3) /hpf Ur Squamous Epith Cells None seen (Few) /hpf Urine Bacteria None seen /hpf Urine Casts 0-2 Influenza A (RT-PCR) Negative (Negative) Influenza B (RT-PCR) Negative (Negative) RSV (RT-PCR) Negative (Negative) SARS-CoV-2 RNA (RT-PCR) Negative (Negative) Imaging Data Attestation: I personally reviewed and interpreted this imaging study as follows: Radiologist's impression: ITS Impressions Chest X-Ray 07/18/24 18:52 IMPRESSION: 1. No acute cardiopulmonary disease. Abdomen/Pelvis CT 07/18/24 21:06 IMPRESSION: 1. Small sliding hiatal hernia. ECG Data EKG #1: Attestation: I personally reviewed and interpreted this ECG as follows: ECG completion date: 07/18/24 ECG completion time: 18:23 EKG Interpretation: normal rate (75), atrial fibrillation and non-specific ST changes Discharge Plan Discharge Clinical Impression: Heart palpitations, Intermittent upper abdominal pain, Microscopic hematuria Patient Disposition: Home, Self-Care Condition: Stable Instructions: Antibiotic Form, Heart Palpitations (ED), Stress (ED), Abdominal Pain (ED) Additional Instructions: Your workup here was reassuring. Continue home medications. Recommend close follow-up with your primary care doctor for further evaluation. Return to the ED if you experience worsening or severe symptoms, chest pain, difficulty breathing, unable to keep down food or drink, severe pain, severe dizziness, passing out, or any other symptoms of concern. Your urine showed evidence of microscopic blood. Follow-up with your primary care doctor and/or urology for this. Patient Language: Croatian Prescriptions: No Action alprazolam 0.25 mg tablet 0.125 mg PO TID Qty: 40 0RF (DME) Blood Pressure Cuff Misc See Rx Instructions .Route Qty: 1 0RF Rx Instructions: Check blood pressure every morning Eliquis 5 mg Tablet 5 mg PO Q12HR Qty: 60 1RF levalbuterol tartrate [Xopenex HFA] 45 mcg/actuation HFA aerosol inhaler 2 inh inhalation Q6H Qty: 15 0RF acetaminophen 500 mg capsule 1,000 mg PO Q6H PRN (Reason: pain) Qty: 30 0RF metoprolol succinate 25 mg tablet extended release 24 hr 50 mg PO DAILY Qty: 180 2RF tramadol 50 mg tablet 50 mg PO Q6H PRN (Reason: pain) Qty: 30 0RF montelukast 10 mg tablet 10 mg PO QHS Qty: 90 3RF Follow-up/Referrals: Tyshawn Pichardo MD [Physician] - (UROLOGY) Vitor Tejada MD [Primary Care Provider] - Time of Disposition: 23:28
[2024-07-18 18:39] LABS: Basophils Percent Auto 0.5 % (0.2-1.2); Eosinophils Absolute Auto 0.2 K/mm3 (0-0.3); Eosinophils Percent Auto 2.7 % (0-4.4); Hematocrit 39.4 % (37.0-47.0); Hemoglobin 13.2 g/dL (12.0-15.0); Immature Granulocyte Absolute 0.01 K/mm3 (0.00-0.031); Immature Granulocyte Percent A 0.2 % (0-0.5); Lymphocytes Absolute Auto 1.37 K/mm3 (0.9-3.2); Mean Corpuscular HGB Conc 33.5 g/dl (32-36); Mean Corpuscular Hemoglobin 30.1 pg (26-34); Mean Platelet Volume 9.7 fl (7.4-10.4); Monocytes Absolute Auto 0.6 K/mm3 (0.1-0.6); Monocytes Percent Auto 10.9 % (2.6-8.5); Neutrophils Absolute Auto 3.3 K/mm3 (1.3-6.7); Neutrophils Percent Auto 60.7 % (45.5-73.1); Platelet Count Result 199 k/mm3 (150-375); Red Blood Count 4.38 M/mm3 (4.2-5.4); Red Cell Distribution Width 13.2 % (11.5-14.5); White Blood Count 5.5 K/mm3 (4.5-10.0)
[2024-07-18 18:49] LABS: INR 1.4; Prothrombin Time 17.3 Seconds (11.1-14.7)
[2024-07-18 18:50] LABS: Partial Thromboplastin Time 32.4 Seconds (22.3-36.8)
[2024-07-18 19:01] LABS: NT Pro B Type Natriuretic Pept 801 pg/mL (19.9-100)
[2024-07-18 19:11] LABS: Alanine Aminotransferase 12 U/L (6-35); Albumin Level 3.8 g/dL (3.5-5.1); Alkaline Phosphatase 52 U/L (38-126); Anion Gap 8 mmol/L (4-12); Aspartate Amino Transferase 17 U/L (14-36); Bilirubin,Total 0.4 mg/dL (0.2-1.3); Blood Urea Nitrogen 12 mg/dL (7-17); Calcium 9.7 mg/dL (8.4-10.2); Carbon Dioxide 19 mmol/L (22-30); Chloride 109 mmol/L (98-107); Estimated CRCL calculation 46 ml/min; Estimated Glomerular Filt Rate > 60; Glucose 97 mg/dL (65-110); Lipase 68 U/L (23-300); Potassium 3.8 mmol/L (3.4-5.0); Sodium 136 mmol/L (137-145)
[2024-07-18 19:14] LABS: Influenza A QL RT-PCR Negative (Negative); Influenza B QL RT-PCR Negative (Negative); RSV RNA, RT-PCR Negative (Negative); SARS-CoV-2 RNA PCR Negative (Negative)
[2024-07-18 19:24] LABS: Troponin I < 0.012 ng/mL (0.000-0.034)
[2024-07-18] MEDS: SODIUM CHLORIDE 0.9% IV 1,000 ML 999 ML IV CONT (20:08)
[2024-07-18 20:17] LABS: Magnesium 2.1 mg/dL (1.6-2.3)
--- OUTSIDE RECORDS SUMMARY | 2024-07-18 20:17 | XMS_ITS | Continuity of Care Document ---
Author Organization [facility] Address [address] [place] [address] [place] [address] Phone Care Team Providers Care Computer Tech Name Role Phone Davion Can DO Unavailable Unavailable Advance Directives Directive Yes / No Effective Date File Name No Information Encounters Encounter Description Practice Location Reason(s) For Visit Diagnoses Date Provider Providers Copied on Encounter [facility], [address], [place], [place], [id number], [place] tel:[phone] [facility] No Information Pamella Burleson. [address] [place], [address], [place]. tel: [phone] Family History Family Member Type Diagnosis Age At Onset No Information Payers Payer name Insurance type Covered libertarian ID Authoriza tion(s) [facility] [id number] Social History Type Description Quantity Date Captured [...]
--- OUTSIDE RECORDS SUMMARY | 2024-07-18 20:18 | XMS_ITS | Referral Summary ---
Author Organization [facility] Address [address] [place] [id number] Care Team Providers Care Director Hr Communications Name Role Phone Radha Tolentino MD Primary Care Provider [phone] Vitor Tejada MD Unavailable [phone] Encounters Date Type Department Care Team Description 07/12/2024 Orders Only [facility] Floor 5 [place] [address] Sharon Gotti, RN Hyperparathyroidism (HCC) [...] on file Legal Sex Female 7:13 PM CHILD CARE CENTER ASSISTANT DIRECTOR Gender Identity Not on file Sexual Orientation Not on file Last Filed Vital Signs Vital Sign Reading Time Taken Comments Blood Pressure 148/78 08/10/2023 10:48 AM CHILD CARE CENTER ASSISTANT DIRECTOR Pulse 74 08/10/2023 10:48 AM CHILD CARE CENTER ASSISTANT DIRECTOR Temperature - - Respiratory Rate - - Oxygen Saturation 99% 08/10/2023 10:48 AM CHILD CARE CENTER ASSISTANT DIRECTOR Inhaled Oxygen Concentration - - Weight 68.5 kg (151 lb) 08/10/2023 10:48 AM CHILD CARE CENTER ASSISTANT DIRECTOR Height 160 cm (5' 3 ) 08/10/2023 10:48 AM CHILD CARE CENTER ASSISTANT DIRECTOR Body Mass Index 26.75 08/10/2023 10:48 AM CHILD CARE CENTER ASSISTANT DIRECTOR Plan of Treatment Not on file Insurance MEDICARE [employer] MEDICARE FOR [facility] MEDICARE Care Teams Director Hr Communications Relationship Specialty Start Date End Date Radha Tolentino MD PCP - General Family Medicine 11/19/21 Vitor Tejada MD [address] [address] Referring Physician Internal Medicine 07/08/24
--- OUTSIDE RECORDS SUMMARY | 2024-07-18 20:18 | XMS_ITS | Clinical Summary ---
Author Organization [facility] Address [address] [place] [address] Care Team Providers Care Opening Machine Cleaner Name Role Phone Radha Tolentino MD Primary Care Provider [phone] Vitor Tejada MD Unavailable [phone] Allergies No known active allergies Medications loratadine [...] Department Care Team Description 07/12/2024 Orders Only [facility] [address] [facility] Floor 5 [place] [id number] Sharon Gotti, NEHAL Hyperparathyroidism (HCC) (Primary Dx) [...] on file Legal Sex Female 7:13 PM DYER HELPER Gender Identity Not on file Sexual Orientation Not on file Obstetrics History Last Filed Vital Signs Vital Sign Reading Time Taken Comments Blood Pressure 148/78 08/10/2023 10:48 AM DYER HELPER Pulse 74 08/10/2023 10:48 AM DYER HELPER Temperature - - Respiratory Rate - - Oxygen Saturation 99% 08/10/2023 10:48 AM DYER HELPER Inhaled Oxygen Concentration - - Weight 68.5 kg (151 lb) 08/10/2023 10:48 AM DYER HELPER Height 160 cm (5' 3 ) 08/10/2023 10:48 AM DYER HELPER Body Mass Index 26.75 08/10/2023 10:48 AM DYER HELPER Plan of Treatment Health Maintenance Due Date [...] LIFE MEDICARE FOR LIFE MEDICARE Care Teams Opening Machine Cleaner Relationship Specialty Start Date End Date Radha Tolentino MD PCP - General Family Medicine 11/19/21 Vitor Tejada MD [address] [place] [address] Referring Physician Internal Medicine 07/08/24
--- OUTSIDE RECORDS SUMMARY | 2024-07-18 20:18 | XMS_ITS | Referral Summary ---
Author Organization [facility] Address [address] [address] Care Team Providers Care White Spooler Name Role Phone Unavailable Primary Care Provider Unavailabl e Source Comments [facility],non-owned Affiliates and Associated Physician Practices is amultiple site organization consisting of ambulatory clinics and hospital sitesin [place], [place], [place] and [place]. This disclosure is being madepursuant to the Care Everywhere program and may not contain all information available regarding this patient. Last updated 18.[facility] Allergies Active Allergy Reactions Criticality Noted Date [...] 09/26/2023 [facility] [place] of Occupat ional Health - Occupational Stress [...] place to sleep or slept in a fdc (including now)? No 09/26/2023 Sex and Gender [...]
--- OUTSIDE RECORDS SUMMARY | 2024-07-18 20:18 | XMS_ITS | Continuity of Care Document ---
Author Name [facility] Organization [facility] Care Team Providers Care Nursing Informatics Analyst Name Role Phone [facility] Unavailable Unavailable Medications Combined list of outpatient medications from Department of Defense and Veterans Affairs facilities.Medications provided include 1) outpatient medications from the last 15 months, and 2) patient-reported medications. Medication Details Route Status Patient Instructions Prescription Expires Prescription Number Last Dispense Date Ordering Provider Order Date Order Qty Source CINACALCET HCL (cinacalcet HCl), 30 MG, TABLET, ORAL, AVKARE, 30 ea. BOTTLE Active [id number] 4 2023 45 Pharmac y Data Transac tion Service Facilit y ELIQUIS (APIXABAN), 5 MG, TABLET, ORAL, BMS PRIMARYCARE , 60 ea. BOTTLE Active [id number] 4 2023 180 Pharmac y Data Transac tion Service Facilit y ELIQUIS (APIXABAN), 5 MG, TABLET, ORAL, BMS PRIMARYCARE , 60 ea. BOTTLE Active [id number] 2023 180 Pharmac y Data Transac tion Service Facilit y ELIQUIS (APIXABAN), 5 MG, TABLET, ORAL, BMS PRIMARYCARE , 60 ea. BOTTLE Active [id number] 4 2023 180 Pharmac y Data Transac tion Service Facilit y IBANDRONATE SODIUM (ibandronat e sodium), 150 MG, TABLET, ORAL, [employer] 3 ea. BLIST PACK Active [id number] 2023 3 Pharmac y Data Transac tion Service Facilit y METOPROLOL SUCCINATE (metoprolol succinate), 25 MG, TAB ER 24H, ORAL, [employer] 1000 ea. BOTTLE Cancele d [id number] : 2023 0 Pharmac y Data Transac tion Service Facilit y METOPROLOL SUCCINATE (metoprolol succinate), 50 MG, TAB ER 24H, ORAL, ACTAVIS/TEV A, 100 ea. BOTTLE Active [id number] 2023 30 Pharmac y Data Transac tion Service Facilit y METOPROLOL SUCCINATE (metoprolol succinate), 50 MG, TAB ER 24H, ORAL, GSR[employer]lex[employer]., 1000 ea. BOTTLE Active [id number] 2023 90 Pharmac y Data Transac tion Service Facilit y METOPROLOL SUCCINATE (metoprolol succinate), 50 MG, TAB ER 24H, ORAL, INGENUS PHARMAC, 100 ea. BOTTLE Cancele d [id number] : 2023 0 Pharmac y Data Transac tion Service Facilit y MONTELUKAST SODIUM (montelukas t sodium), 10 MG, TABLET, ORAL, XLCARE PHARMACE, 90 ea. BOTTLE Cancele d [id number] : 2023 0 Pharmac y Data Transac tion Service Facilit y MONTELUKAST SODIUM (montelukas t sodium), 10 MG, TABLET, ORAL, XLCARE PHARMACE, 90 ea. BOTTLE Active [id number] 2023 90 Pharmac y Data Transac tion Service Facilit y MONTELUKAST SODIUM (montelukas t sodium), 10 MG, TABLET, ORAL, XLCARE PHARMACE, 90 ea. BOTTLE Active [id number] 2023 90 Pharmac y Data Transac tion Service Facilit y SERTRALINE HCL (sertraline HCl), 25 MG, TABLET, ORAL, EXELAN PHARMACE, 180 ea. BOTTLE Active [id number] 2023 30 Pharmac y Data Transac tion Service Facilit y Immunizations Combined list of available immunizations from the Department of Defense and Veterans Affairs facilities. Immunization Series Date Given Administered By Site Reaction Lot Number CVX Code Drug Group Sales Manager Status Comments Source COVID-19, mRNA, LNP-S, PF, 30 mcg/0.3 mL dose 2020 PADMINI, Pansieve NV (PFR) Not Given COVID-19, mRNA, LNP-S, PF, 30 mcg/0.3 mL dose [facility] Influenza vaccine, quadrivalent, adjuvanted 2019 ALUL, () Not Given Influenza vaccine, quadrival ent, adjuvante d DoD Social History Combined list of available smoking, tobacco, and other social history from Department of Defense and Veterans Affairs facilities. Social History Type Response Date Comment [facility] e This section is an empty social history section. DoD
--- OUTSIDE RECORDS SUMMARY | 2024-07-18 20:18 | XMS_ITS | Clinical Summary ---
Author Organization [facility] Address [address] [place] [address] Care Team Providers Care Circuit Board Assembler Name Role Phone Unavailable Primary Care Provider Unavailabl e Source Comments [facility],non-owned Affiliates and Associated Physician Practices is amultiple site organization consisting of ambulatory clinics and hospital sitesin [place], [place], [place] and [place]. This disclosure is being madepursuant to the Care Everywhere program and may not contain all information available regarding this patient. Last updated 18.[facility] 1 Allergies Active Allergy Reactions Criticality Noted Date [...] care, and heating? Not very hard 09/26/2023 [facility] [place] of Occupat ional Health - Occupational Stress [...] place to sleep or slept in a care home (including now)? No 09/26/2023 Sex and Gender [...]
--- OUTSIDE RECORDS SUMMARY | 2024-07-18 20:18 | XMS_ITS | Patient Health Summary ---
Author Organization [facility] Address [address] [place] [address] Care Team Providers Care Cellular Biologist Name Role Phone Unavailable Primary Care Provider Unavailabl e Note from [facility],non-owned Affiliates and Associated Physician Practices is amultiple site organization consisting of ambulatory clinics and hospital sitesin [place], [place], [place] and [place]. This disclosure is being madepursuant to the Care Everywhere program and may not contain all information available regarding this patient. Last updated 18.[facility] Allergies * Contrast-Iodinated Agents For Ct/Other(Unknown) Medications [...] care, and heating? Not very hard 09/26/2023 [facility] [place] of Occupat ional Health - Occupational Stress [...] place to sleep or slept in a mcfp (including now)? No 09/26/2023 Sex and Gender [...] Yellow, Dark Yellow 09/29/2023 12:55 PM CDT [facility] Clarity UA Clear Clear 09/29/2023 12:55 PM CDT [facility] Glucose UA Negative Negative 09/29/2023 12:55 PM CDT [facility] Bilirubin UA Negative Negative 09/29/2023 12:55 PM CDT [facility] Ketone UA Negative Negative 09/29/2023 12:55 PM CDT [facility] Specific [place] UA 1.012 1.005 - 1.030 09/29/2023 12:55 PM CDT [facility] Blood UA Negative Negative 09/29/2023 12:55 PM CDT [facility] pH UA 6.0 5.0 - 8.0 pH 09/29/2023 12:55 PM CDT [facility] Protein UA Negative Negative 09/29/2023 12:55 PM CDT [facility] Urobilinogen UA Negative Negative mg/dL 09/29/2023 12:55 PM CDT [facility] Nitrite UA Negative Negative 09/29/2023 12:55 PM CDT [facility] Leukocyte UA Negative Negative 09/29/2023 12:55 PM CDT [facility] Urine Microscopy Urine microscopy not indicated 09/29/2023 12:55 PM CDT [facility] Reflex Status Culture not indicated 09/29/2023 12:55 PM CDT [facility] Urine URINE SPECIMEN OBTAINED BY CLEAN CATCH PROCEDURE / Unknown Collection / Unknown 09/29/2023 12:37 PM CDT 09/29/2023 12:38 PM CDT Narrative [facility] - 09/29/2023 12:55 PM CDT Monae Owens LEGAL OFFICER-RADIO INTERFERENCE EXPERT LAB - URINALYSIS ORDERABLES Performing Organization Address City/[facility]/ZIP Co de Phone Number [facility] [address] * EKG 12-LEAD (09/29/2023 9:02 AM CDT) Ventricular Rate 99 BPM [facility] QRS Duration ms 88 ms [facility] Q-T Interval ms 328 ms [facility] QTC Calculation (Bezet) 420 ms [facility] Calculated R Bois D Arc 30 degrees [facility] Calculated T Bois D Arc 49 degrees [facility] Interpretation EKG ATRIAL FIBRILLATION ABNORMAL ECG Confirmed by PAPITO BENITEZ MD ([id number]) on 09/30/2023 2:55:38 PM [facility] 09/29/2023 9:02 AM CDT 09/30/2023 2:55 PM CDT Cyndi Rueda MD ECG ORDERABLES Performing Organization Address [facility] Co de Phone Number [facility] * (ABNORMAL) CREATININE BLOOD (09/27/2023 6:30 AM CDT) Creatinine 1.01 0.57 - 1.11 mg/dL 09/27/2023 6:57 AM CDT [facility] eGFR 55(L) >90 mL/min/1.7 3m2 09/27/2023 6:57 AM CDT [facility] Comment:The GFR result was c alculated using the updated CKD-EPI Creatinine Equation (2020). Blood BLOOD SPECIMEN / Unknown Lab Venipuncture / Unknown 09/27/2023 6:30 AM CDT 09/27/2023 6:39 AM CDT Luke Navarro DO LAB - CHEMISTRY NELLA ZALDIVAR [facility] [address] [place] [address], [facility]
--- NOTE | 2024-07-18 21:46 | ECG_ITS ---
Test Date: 2024-07-18 22:10:24 Measurements Intervals [place] Rate: 74 P: 0 RI: 0 QRS: 44 QRSD: 85 T: 48 QT: 371 QTc: 412 Interpretive Statements ATRIAL FIBRILLATION ABNORMAL RHYTHM ECG Compared to ECG 07/18/2024 18:23:56 No significant changes Electronically Signed On 07-19-2024 16:11:56 SERVICE GIRL by Pablo Jack M.D.
[2024-07-18 21:59] LABS: Troponin I < 0.012 ng/mL (0.000-0.034)
[2024-07-18 22:30] LABS: Bacteria Urine None Seen /hpf; Non Pathogenic Casts 0-2; RBC Urine >100 /hpf (0-2); Squamous Epithelial Cell Urine None Seen /hpf (Few); WBC Urine 0-5 /hpf (0-3)
[2024-07-18 22:34] LABS: Add Urine Microscopic? YES; Appearance Urine Clear (Clear); Bilirubin Urine Negative (Negative); Blood Urine 3+ (Negative); Color Urine Orange (Yellow); Glucose Urine UA Negative (Negative); Ketones Urine Negative (Negative); Leukocyte Esterase Ur Trace LEU/UL (Negative); Nitrate Urine Negative (Negative); Protein Urine Trace mg/dL (Negative); Specific Grav Ur 1.005 (1.001-1.035); Urobilinogen Urine 0.2 mg/dL (<2.0); pH Urine 6.5 (5.0-9.0)
== END 2024-07-18 23:32 | disposition home or self-care (01) ==
PROVIDERS: Emergency Medicine; Emergency Provider Physician Assistant; PCP Internal Medicine
DX: R00.2 Palpitations (principal); R10.10 Upper abdominal pain, unspecified; R31.29 Other microscopic hematuria; Z79.01 Long term (current) use of anticoagulants; I48.91 Unspecified atrial fibrillation; M81.0 Age-related osteoporosis without current pathological fracture; I10 Essential (primary) hypertension
CPT/HCPCS: 36415; 71046; 74176; 80053; 81001; 83690; 83735; 83880; 84484; 85025; 85610; 85730; 87637; 93005; 96360; 99284; J7030

== ENCOUNTER 2025-01-23 11:13 | Outpatient (CLI) | payer MEDICARE, OTHER, SELFPAY ==
--- NOTE | ~2025-01-23 | US_ITS ---
US thyroid INDICATION: Multinodular goiter TECHNIQUE: Real-time sonographic images of the thyroid gland were obtained. COMPARISON: Ultrasound dated 12/11/2023 FINDINGS: The right thyroid lobe measures 2.2 x 1.7 x 4 cm. Left thyroid gland is surgically absent. There are right thyroid nodules, largest located at the isthmus. This mass is a spongiform, hypoechoi c, wider than tall, smoothly marginated with posterior acoustic enhancement and internal echogenic fo ci measuring 12 x 11 x 7 mm, TR 4. Normal vascular flow is present. IMPRESSION: 1. Right thyroid nodules, likely benign. Recommend follow-up ultrasound in 12 months. Reviewed, dictated and finalized at location A.
--- OUTSIDE RECORDS SUMMARY | 2025-01-23 10:40 | XMS_ITS | Clinical Summary ---
Author Organization [facility] Address [address] [place] [address] Care Team Providers Care Chief Security And Safety Officer Name Role Phone Unavailable Primary Care Provider Unavailabl e Source Comments [facility],non-owned Affiliates and Associated Physician Practices is amultiple site organization consisting of ambulatory clinics and hospital sitesin [place], [place], [place] and [place]. This disclosure is being madepursuant to the Care Everywhere program and may not contain all information available regarding this patient. Last updated 18.[facility] Allergies Active Allergy Reactions Criticality Noted Date Comments Contrast-Iodinated Agents For Ct/Other Unknown 09/25/2023 Medications * This document contains information received from the source organization and may not represent a complete record from that organization. * Be aware that medications may not be up to date on this document. Alwaysverify current medications with the patient. 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 Not very hard 09/26/2023 [facility] [place] of Occupat ional Health - Occupational Stress [...] place to sleep or slept in a fpc (including now)? 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 Gender Identity Not on file Sexual Orientation Not on file Last Filed Vital Signs Vital Sign Reading Time Taken Comments Blood Pressure 130/88 10/02/2023 7:01 AM CDT Pulse 64 10/02/2023 7:01 AM CDT Temperature 36.8 C (98.2 F) 10/02/2023 7:01 AM CDT Respiratory Rate 16 10/02/2023 7:01 AM CDT Oxygen Saturation 97% 10/02/2023 7:01 AM CDT Inhaled Oxygen Concentration - - Weight 67.6 kg (149 lb) 09/26/2023 12:37 AM CDT Height 160 cm (5' 3) 09/26/2023 12:37 AM CDT Body Mass Index 26.39 09/26/2023 12:37 AM CDT Plan of Treatment Health Maintenance Due Date Last Done Comments BONE DENSITY TESTING 1940 MEDICARE AWV 12 MONTHS 1938 DTAP/TDAP/TD VACCINES (1 - Tdap) 1957 PNEUMOCOCCAL VACCINE 50+ (1 of 1 - PCV) 1988 ZOSTER VACCINE (1 of 2) 1988 Respiratory Syncytial Virus (RSV) Vaccine Pt: or over 60 yrs (1 - 1-dose 75+ series) 2013 COVID-19 VACCINE ( - 2023-2 5 season) 2024 DEPRESSION SCREENING 06/22/2024 INFLUENZA VACCINE (#1) 2025 HEPATITIS B VACCINE Aged Out No longe r eligible based on patient's age to complete this topic HIB VACCINE Aged Out No longer eligi ble based on patient's age to complete this topic HPV VACCINE Aged Out No longer eligi ble based on patient's age to complete this topic MENINGOCOCCAL (Group B) VACC INE SHARED DECISION-MAKING Aged Out No longer eligibl e based on patient's age to complete this topic MENINGOCOCCAL GROUPS A/C/Y/W VACCINE Aged Out No longer eligible b ased on patient's age to complete this topic Insurance MEDICARE Advance Directives * Full Code (Latest Code Status on File) Date Activated Date Inactivated Comments 09/26/2023 12:43 AM 10/02/2023 1:18 PM
--- OUTSIDE RECORDS SUMMARY | 2025-01-23 10:40 | XMS_ITS | Referral Summary ---
Author Organization [facility] Address [address] [place] [id number] Care Team Providers Care Night Custodian Name Role Phone Radha Tolentino MD Primary Care Provider [phone] Vitor Tejada MD Unavailable [phone] Encounters Date Type Department Care Team Description 10/27/2024 Results Follow-Up [facility] Surgery [facility] Floor 5 [place] [address] Tyshawn Islas MD PTH, Calcium level, T4, free, TSH 10/27/2024 10:00 AM CDT Lab [facility] [address] [place] [id number] Hyperparathyroidism; H/O partial thyroidectomy from Last 3 Months Allergies Active Allergy Reactions Criticality Noted Date Comments Iodinated Contrast Media Palpitations,Syncope High 0 09/25/2023 Medications albuterol HFA (PROVENTIL HFA,VENTOLIN HFA,PROAIR HFA) 90 mcg/actuation inhaler Inhale 2 puffs every 6 (six) hours as needed for shortness of breath Active methocarbamoL (ROBAXIN) 500 mg tablet Take 2 tablets (1,000 mg total) by mouth 3 (three) times a day as needed for muscle spasms 8 tablet 5 Active oxyCODONE (ROXICODONE) 5 mg immediate release tabletIndications :Pain Take 1 tablet (5 mg total) by mouth every 4 (four) hours as needed for pain 8 tablet 5 Active Eliquis 5 mg tabletIndications :Persistent atrial fibrillation (HCC) Take 1 tablet (5 mg total) by mouth every 12 (twelve) hours Please restart Eliquis on Thursday09/05/24. 5 Active calcium carbonate (OS-ARIES) 1,250 mg (500 mg elemental) tablet Take 1 tablet (1,250 mg total) by mouth daily 30 tablet 5 09/02/19 26 Active metoprolol XL (TOPROL-XL) 50 mg extended release tabletIndications :Persistent atrial fibrillation (HCC) TAKE 1 TABLET DAILY 90 tablet 2 5 Active Active Problems Problem Noted Date Diagnosed Date [facility] (hyperparathyroidism) 08/11/2024 Permanent atrial fibrillation 08/10/2023 Psychosocial stressors 08/10/2022 Chronic anticoagulation 07/29/2022 Essential hypertension 07/29/2022 Weight loss 07/29/2022 Resolved Problems Problem Noted Date Diagnosed Date Resolved Date Longstanding persistent atrial fibrillation 07/29/2022 08/19/2024 Immunizations Immunization Administration Dates Next Due Hep B Vaccine 01/06/2002,09/24/2001,07/14/2001 Influenza, Quadrivalent, Hig h Dose, Preservative Free, Intrr 2021 Influenza, Trivalent, High D ose, Split, Preservative Free, Intramuscular 04/19/2019 Influenza, Trivalent, Preser vative Free, Intramuscular 02/28/2020 Social History Tobacco Use Types Packs/Day Years Used Date Smoking Tobacco: Never Passive Smoke Exposure: Past Smokeless Tobacco: Never Tobacco Cessation:Counseling Given: Not Answered AUDIT-C Answer Date Recorded Q1: How often do you have a drink containing alcohol? Never 08/30/2024 Q2: How many drinks containi ng alcohol do you have on a typical day when you are drinking? Patient does not drink Q3: How often do you have si x or more drinks on one occasion? Never 08/30/2024 Personal Safety Answer Date Recorded Have you ever been in or are you currently in a harmful physical or emotional relationship or is someone making you feel afraid or unsafe? 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 Gender Identity Not on file Sexual Orientation Not on file Last Filed Vital Signs Vital Sign Reading Time Taken Comments Blood Pressure 167/96 09/15/2024 3:14 PM CDT MD reichtfied Pulse 95 09/15/2024 3:14 PM CDT Temperature 36.6 C (97.9 F) 09/15/2024 3:14 PM CDT Respiratory Rate 16 09/15/2024 3:14 PM CDT Oxygen Saturation 99% 09/15/2024 3:14 PM CDT Inhaled Oxygen Concentration - - Weight 63 kg (139 lb) 09/15/2024 3:14 PM CDT Height 160 cm (5' 3) 09/01/2024 4:00 PM CDT Body Mass Index 24.62 09/01/2024 4:00 PM CDT Plan of Treatment Not on file Medical Devices Explanted Type Area Employment Interviewer Device Identifier Shelf Expiration Date Model / Serial / Lot Parathyroid Tissue Explanted:Qty: 1 on 08/30/2024 by Tyshawn Islas MD at [facility] N/A: Neck Other 09/13/2024 N/A / / Procedures Procedure Name Priority Date/Time Associated Diagnosis Comments TSH Routine 10/27/2024 10:08 AM CDT Hyperparathyroidism H/O partial thyroidectomy T4, FREE Routine 10/27/2024 10:08 AM CDT Hyperparathyroidism H/O partial thyroidectomy CALCIUM LEVEL Routine 10/27/2024 10:08 AM CDT Hyperparathyroidism PTH Routine 10/27/2024 10:08 AM CDT Hyperparathyroidism from Last 3 Months Results * TSH (10/27/2024 10:08 AM CDT) Thyroid Stimulating Hormone 2.91 0.30 - 4.20 mcIUnit/mL Comment:Testing performed by : [facility], [address] [place] [address], [place]., [address] Blood 10/27/2024 10:0 8 AM CDT 10/27/2024 11:04 AM CDT Tyshawn Islas MD LAB BLOOD ORDERABLES Fi nal Result Performing Organization Address City/State/[facility] Co de Phone Number G[facility]SE[facility] [address] [address] * T4, free (10/27/2024 10:08 AM CDT) Pathologist [facility] Free T4 0.99 0.90 - 1.70 ng/dL Comment:Testing performed by : [address] [address] Blood 10/27/2024 10:0 8 AM CDT 10/27/2024 11:04 AM CDT Tyshawn Islas MD LAB BLOOD ORDERABLES Fi nal Result Performing Organization Address [facility] Co de Phone Number [facility] [address] [address] * PTH (10/27/2024 10:08 AM CDT) [facility] PTH 65 15 - 65 pg/mL Comment:Testing performed by : [address] [address] Blood 10/27/2024 10:0 8 AM CDT 10/27/2024 11:04 AM CDT us Tyshawn Islas MD LAB BLOOD ORDERABLES Fi nal Result Performing Organization Address [facility] Co de Phone Number [facility] [address] [address] * Calcium level (10/27/2024 10:08 AM CDT) [facility] Calcium 8.9 8.5 - 10.3 mg/dL Comment:Testing performed by : [address] [address] Blood 10/27/2024 10:0 8 AM CDT 10/27/2024 11:04 AM CDT Tyshawn Islas MD LAB BLOOD ORDERABLES Fi nal Result Performing Organization Address [facility]/ZIP Co de Phone Number [facility]ERN[facility] [address] [facility] Department [place] [address] from Last 3 Months Insurance MEDICARE FOR LIFE MEDICARE FOR LIFE MEDICARE FOR LIFE Advance Directives For more information, please contact: [phone] * Full Code (Latest Code Status on File) Date Activated Date Inactivated Comments 08/30/2024 9:49 PM 09/01/2024 11:10 PM Care Teams Night Custodian Relationship Specialty Start Date End Date Radha Tolentino MD PCP - General Family Medicine 11/19/21 Vitor Tejada MD [address] [address] Referring Physician Internal Medicine 07/08/24
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
--- OUTSIDE RECORDS SUMMARY | 2025-01-23 10:40 | XMS_ITS | Continuity of Care Document ---
Author Name [facility] Organization [facility] Care Team Providers Care Process Pumper Name Role Phone [facility] Unavailable Unavailable Medications Combined list of outpatient medications from Department of Defense and Veterans Affairs facilities.Medications provided include 1) outpatient medications from the last 15 months, and 2) patient-reported medications. Medication Details Route Status Patient Instructions Prescription Expires Prescription Number Last Dispense Date Ordering Provider Order Date Order Qty Source METOPROLOL SUCCINATE (metoprolol succinate), 50 MG, TAB ER 24H, ORAL, [employer] 1000 ea. BOTTLE Active [id number] 2023 90 Pharmac y Data Transac tion Service Facilit y Immunizations Combined list of available immunizations from the Department of Defense and Veterans Affairs facilities. Immunization Series Date Given Administered By Site Reaction Lot Number CVX Code Drug Lead Java Programmer Status Comments Source COVID-19, mRNA, LNP-S, PF, 30 mcg/0.3 mL dose 2020 [employer] (PFR) Not Given COVID-19, mRNA, LNP-S, PF, 30 mcg/0.3 mL dose [facility] Influenza vaccine, quadrivalent, adjuvanted 2019 ALUL, () Not Given Influenza vaccine, quadrival ent, adjuvante d [facility] Social History Combined list of available smoking, tobacco, and other social history from Department of Defense and Veterans Affairs facilities. Social History Type Response Date Comment Sour e This section is an empty social history section. [facility]
--- OUTSIDE RECORDS SUMMARY | 2025-01-23 11:35 | XMS_ITS | Continuity of Care Document ---
Author Name [facility] Organization [facility] Care Team Providers Care Supervisor Scouring Pads Name Role Phone [facility] Unavailable Unavailable Medications Combined list of outpatient medications from Department of Defense and Veterans Affairs facilities.Medications provided include 1) outpatient medications from the last 15 months, and 2) patient-reported medications. Medication Details Route Status Patient Instructions Prescription Expires Prescription Number Last Dispense Date Ordering Provider Order Date Order Qty Source METOPROLOL SUCCINATE (metoprolol succinate), 50 MG, TAB ER 24H, ORAL, [employer] 1000 ea. BOTTLE Active [id number] 2023 90 Pharmac y Data Transac tion Service Facilit y Immunizations Combined list of available immunizations from the Department of Defense and Veterans Affairs facilities. Immunization Series Date Given Administered By Site Reaction Lot Number CVX Code Drug Public Service Officer Status Comments Source COVID-19, mRNA, LNP-S, PF, 30 mcg/0.3 mL dose 2020 [employer] (PFR) Not Given COVID-19, mRNA, LNP-S, PF, 30 mcg/0.[address] [facility] Influenza vaccine, quadrivalent, adjuvanted 2019 ALUL, () Not Given Influenza vaccine, quadrival ent, adjuvante d [facility] Social History Combined list of available smoking, tobacco, and other social history from Department of Defense and Veterans Affairs facilities. Social History Type Response Date Comment Sour e This section is an empty social history section. [facility]
[2025-01-23 11:36] LABS: Hematocrit 41.1 % (37.0-47.0); Hemoglobin 13.1 g/dL (12.0-15.0); Immature Granulocyte Percent A 0.3 % (0-0.5); Lymphocytes Absolute Auto 1.60 K/mm3 (0.9-3.2); Mean Corpuscular HGB Conc 31.9 g/dl (32-36); Mean Corpuscular Hemoglobin 28.9 pg (26-34); Mean Corpuscular Volume 90.5 fl (80-100); Nucleated Red Blood Cells Absolute Auto 0.000 K/mm3 (0.0-0.012); Nucleated Red Blood Cells Perc 0.0 % (0.0-0.2); Platelet Count Result 210 k/mm3 (150-375); Red Blood Count 4.54 M/mm3 (4.2-5.4); White Blood Count 7.1 K/mm3 (4.5-10.0)
--- OUTSIDE RECORDS SUMMARY | 2025-01-23 11:36 | XMS_ITS | Clinical Summary ---
Author Organization [facility] Address [address] [place] [address] Care Team Providers Care Fire Sprinkler Apparatus Inspector Name Role Phone Unavailable Primary Care Provider Unavailabl e Source Comments [facility],non-owned Affiliates and Associated Physician Practices is amultiple site organization consisting of ambulatory clinics and hospital sitesin [place], [place], [place] and [place]. This disclosure is being madepursuant to the Care Everywhere program and may not contain all information available regarding this patient. Last updated 18.[facility] [employer] Allergies Active Allergy Reactions Criticality Noted Date [...] care, and heating? Not very hard 09/26/2023 [facility] of Occupat ional Health - Occupational Stress [...] place to sleep or slept in a group home (including now)? 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
--- OUTSIDE RECORDS SUMMARY | 2025-01-23 11:36 | XMS_ITS | Referral Summary ---
Author Organization [facility] Address [address] [place] [address] Care Team Providers Care Supervisor Dried Yeast Name Role Phone Radha Tolentino MD Primary Care Provider [phone] Vitor Tejada MD Unavailable [phone] Encounters Date Type Department Care Team Description 10/27/2024 Results Follow-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 Gender Identity Not on file Sexual Orientation [...] on file Medical Devices Explanted Type Area Rn Mds Device Identifier Shelf Expiration Date Model / Serial / Lot Parathyroid Tissue Explanted:Qty: 1 on 08/30/2024 by Tyshawn Islas MD at [facility] N/A: Neck Other 09/13/2024 N/A [...] - 4.20 mcIUnit/mL Comment:Testing performed by : [facility], [address] [place] [address], [place]., [address] Blood 10/27/2024 10:0 8 AM CDT 10/27/2024 11:04 AM CDT Tyshawn Islsa MD LAB BLOOD ORDERABLES Fi nal Result Performing Organization Address City/State/[facility] Co de Phone Number GISSELL [address] [address] * T4, free (10/27/2024 10:08 AM CDT) Pathologist [facility] Free T4 0.99 0.90 - 1.70 ng/dL Comment:Testing performed by : [address] [address] Blood 10/27/2024 10:0 8 AM CDT 10/27/2024 11:04 AM CDT Tyshawn Islas MD LAB BLOOD ORDERABLES Fi nal Result Performing Organization Address [facility] Co de Phone Number GISSELL [address] [address] * PTH (10/27/2024 10:08 AM CDT) [facility] PTH 65 15 - 65 pg/mL Comment:Testing performed by : [address] [address] Blood 10/27/2024 10:0 8 AM CDT 10/27/2024 11:04 AM CDT us Tyshawn Islas MD LAB BLOOD ORDERABLES Fi nal Result Performing Organization Address [facility] Co de Phone Number GISSELL [address] [address] * Calcium level (10/27/2024 10:08 AM CDT) [facility] Calcium 8.9 8.5 - 10.3 mg/dL Comment:Testing performed by : [address] [address] Blood 10/27/2024 10:0 8 AM CDT 10/27/2024 11:04 AM CDT Tyshawn Islas MD LAB BLOOD ORDERABLES Fi nal Result Performing Organization Address [facility]/ZIP Co de Phone Number CERNER [facility] [address] [facility] Department [place] [address] from Last 3 Months Insurance MEDICARE FOR LIFE MEDICARE FOR LIFE MEDICARE [facility] Address: [address] [address] [place] [address] FOR LIFE Advance Directives For more information, please contact: [phone] * Full Code (Latest Code Status on File) Date Activated Date Inactivated Comments 08/30/2024 9:49 PM 09/01/2024 11:10 PM Care Teams Supervisor Dried Yeast Relationship Specialty Start Date End Date Radha Tolentino MD PCP - General Family Medicine 11/19/21 Vitor Tejada MD [address] [address] Referring Physician Internal Medicine 07/08/24
--- OUTSIDE RECORDS SUMMARY | 2025-01-23 11:36 | XMS_ITS | Clinical Summary ---
Author Organization [facility] Address [address] [place] [address] Care Team Providers Care Relations Specialist Name Role Phone Radha Tolentino MD Primary Care Provider [phone] Vitor Tejada MD Unavailable [phone] Allergies Active Allergy Reactions Criticality Noted Date [...] Team Description 10/27/2024 10:00 AM CDT Lab [facility] Lab [address] [place] [address] Hyperparathyroidism; H/O partial thyroidectomy 10/27/2024 Results Follow-Up [facility] Surgery [facility] Floor [address] [place] [address] Tyshawn Islas MD PTH, Calcium [...] on file 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 Gender Identity Not on file Sexual [...] 09/24/2001, 07/14/2001 Medical Devices Explanted Type Area Watershed Coordinator Device Identifier Shelf Expiration Date Model / Serial / Lot Parathyroid Tissue Explanted:Qty: 1 on 08/30/2024 by Tyshawn Islas MD at [facility] N/A: Neck Other 09/13/2024 N/A / [...] - 4.20 mcIUnit/mL Comment:Testing performed by : [address] [address] Blood 10/27/2024 10:0 8 AM CDT 10/27/2024 11:04 AM CDT Tyshawn Islas MD LAB BLOOD ORDERABLES nal Result [facility] [address] [facility] Department [place] [address] * T4, free (10/27/2024 10:08 AM CDT) Free T4 0.99 0.90 - 1.70 ng/dL Comment:Testing performed by : [address] [address] Blood 10/27/2024 10:0 8 AM CDT 10/27/2024 11:04 AM CDT Tyshawn Islas MD LAB BLOOD ORDERABLES Fi nal Result G[facility] [address] [address] * PTH (10/27/2024 10:08 AM CDT) PTH 65 15 - 65 pg/mL Comment:Testing performed by : [address] [address] Blood 10/27/2024 10:0 8 AM CDT 10/27/2024 11:04 AM CDT Tyshawn Islas MD LAB BLOOD ORDERABLES Fi nal Result Performing Organization Address City/[facility] Co de Phone Number [address] [address] * Calcium level (10/27/2024 10:08 AM CDT) Calcium 8.9 8.5 - 10.3 mg/dL Comment:Testing performed by : [address] [address] Blood 10/27/2024 10:0 8 AM CDT 10/27/2024 11:04 AM CDT Tyshawn Islas MD LAB BLOOD ORDERABLES Fi nal Result G[facility] [address] [address] from Last 3 Months Insurance MEDICARE FOR LIFE MEDICARE FOR LIFE MEDICARE FOR LIFE Advance Directives For more information, please contact: [phone] * Full Code (Latest Code Status on File) Date Activated Date Inactivated Comments 08/30/2024 9:49 PM 09/01/2024 11:10 PM Care Teams Relations Specialist Relationship Specialty Start Date End Date Radha Tolentino MD PCP - General Family Medicine 11/19/21 Vitor Tejada MD [address] [place] [address] Referring Physician Internal Medicine 07/08/24
[2025-01-23 11:55] LABS: Alanine Aminotransferase 16 U/L (6-35); Albumin Level 3.9 g/dL (3.5-5.1); Alkaline Phosphatase 47 U/L (38-126); Anion Gap 5 mmol/L (4-12); Aspartate Amino Transferase 21 U/L (14-36); Bilirubin,Total 0.5 mg/dL (0.2-1.3); Blood Urea Nitrogen 22 mg/dL (7-17); Calcium 9.4 mg/dL (8.4-10.2); Carbon Dioxide 31 mmol/L (22-30); Chloride 103 mmol/L (98-107); Cholesterol 205 mg/dL (0-200); Estimated Glomerular Filt Rate 57; Glucose 99 mg/dL (65-110); HDL Direct 55 mg/dL; Potassium 4.3 mmol/L (3.4-5.0); Sodium 139 mmol/L (137-145); Total Protein 6.7 g/dL (6.3-8.2); Triglycerides 114 mg/dL (<150)
== END 2025-01-23 11:14 | disposition home or self-care (01) ==
PROVIDERS: Student in an Organized Health Care Education/Training Program; PCP Family Medicine; Visit Provider Internal Medicine
DX: Z13.220 Encounter for screening for lipoid disorders (principal); E66.3 Overweight; R63.4 Abnormal weight loss; I10 Essential (primary) hypertension; M81.0 Age-related osteoporosis without current pathological fracture; R73.09 Other abnormal glucose; E21.0 Primary hyperparathyroidism; E78.5 Hyperlipidemia, unspecified; E04.2 Nontoxic multinodular goiter; I48.91 Unspecified atrial fibrillation; R53.83 Other fatigue; Z98.890 Other specified postprocedural states; Z90.89 Acquired absence of other organs
CPT/HCPCS: 36415; 76536; 80053; 80061; 85025

== ENCOUNTER 2025-02-09 16:44 | Outpatient (CLI) | payer MEDICARE, OTHER, SELFPAY ==
--- OUTSIDE RECORDS SUMMARY | 2025-02-09 16:46 | XMS_ITS | Continuity of Care Document ---
Author Name [facility] Organization [facility] Care Team Providers Care Exhibit Preparator Name Role Phone [facility] Unavailable Unavailable Immunizations Combined list of available immunizations from the Department of Defense and Veterans Affairs facilities. Immunization Series Date Given Administered By Site Reaction Lot Number CVX Code Drug Chiropractic Neurologist Status Comments Source COVID-19, mRNA, LNP-S, PF, 30 mcg/0.3 mL dose 2020 [employer] [place] (PFR) Not Given COVID-19, mRNA, LNP-S, PF, 30 mcg/0.3 mL dose [facility] Influenza vaccine, quadrivalent, adjuvanted 2019 ALUL, () Not Given Influenza vaccine, quadrival ent, adjuvante d [facility] Social History Combined list of available smoking, tobacco, and other social history from Department of Defense and Veterans Affairs facilities. Social History Type Response Date Comment Sourc e This section is an empty social history section. [facility]
--- OUTSIDE RECORDS SUMMARY | 2025-02-09 16:47 | XMS_ITS | Clinical Summary ---
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 Gender Identity Not on file Sexual Orientation Not on file Obstetrics History Last Filed Vital Signs Vital Sign Reading Time Taken Comments Blood Pressure 167/96 09/15/2024 3:14 PM CDT notitfied Pulse 95 09/15/2024 3:14 PM CDT [...] 09/24/2001, 07/14/2001 Medical Devices Explanted Type Area Rn Corrections Device Identifier Shelf Expiration Date Model / Serial / Lot Parathyroid Tissue Explanted:Qty: 1 on 08/30/2024 by Tyshawn Islas MD at [facility] N/A: Neck Other 09/13/2024 N/A / / Insurance MEDICARE FOR LIFE MEDICARE FOR LIFE MEDICARE FOR LIFE Advance Directives For more information, please contact: [phone] * Full Code (Latest Code Status on File) Date Activated Date Inactivated Comments 08/30/2024 9:49 PM 09/01/2024 11:10 PM Care Teams Slot Router Relationship Specialty Start Date End Date Radha Tolentino MD PCP - General Family Medicine 11/19/21 Vitor Tejada MD [address] [address] Referring Physician Internal Medicine 07/08/24
--- OUTSIDE RECORDS SUMMARY | 2025-02-09 16:47 | XMS_ITS | Clinical Summary ---
Author Organization [facility] Address [address] [place] [address] Care Team Providers Care Kineseologist Name Role Phone Unavailable Primary Care Provider Unavailabl e Source Comments [facility],non-owned Affiliates and Associated Physician Practices is amultiple site organization consisting of ambulatory clinics and hospital sitesin [place], [place], [place] and [place]. This disclosure is being madepursuant to the Care Everywhere program and may not contain all information available regarding this patient. Last updated 18.[facility] [employer] Allergies Active Allergy Reactions Criticality Noted Date [...] care, and heating? Not very hard 09/26/2023 [facility] [place] of Occupat ional Health - Occupational Stress [...] place to sleep or slept in a halfway (including now)? No 09/26/2023 Comments No Sex and Gender Information Value Date Recorded Sex Assigned at Not on file Legal Sex Female 5:23 AM BACK SEWER Gender Identity Not on file Sexual Orientation [...]
[2025-02-09 17:23] LABS: Add Urine Microscopic? YES; Appearance Urine Cloudy (Clear); Glucose Urine UA Negative (Negative); Leukocyte Esterase Ur 1+ LEU/UL (Negative); Nitrate Urine Negative (Negative); Non Pathogenic Casts 0-2; Specific Grav Ur 1.022 (1.001-1.035)
[2025-02-09 17:50] LABS: Free T4 Free Thyroxine 0.97 ng/dL (0.78-2.19)
[2025-02-09 18:00] LABS: Thyroid Stimulating Hormone 3.010 uIU/mL (0.465-4.680)
== END 2025-02-09 16:45 | disposition home or self-care (01) ==
PROVIDERS: PCP Family Medicine; Visit Provider Internal Medicine
DX: E04.2 Nontoxic multinodular goiter (principal); R63.4 Abnormal weight loss; E66.3 Overweight; I10 Essential (primary) hypertension; R73.09 Other abnormal glucose; E21.0 Primary hyperparathyroidism; E78.5 Hyperlipidemia, unspecified; R39.9 Unspecified symptoms and signs involving the genitourinary system; Z98.890 Other specified postprocedural states; Z90.89 Acquired absence of other organs
CPT/HCPCS: 36415; 81001; 84439; 84443; 87086

== ENCOUNTER 2025-03-28 14:42 | Outpatient (CLI) | payer MEDICARE, OTHER, SELFPAY ==
--- OUTSIDE RECORDS SUMMARY | 2002-03-03 03:30 | XMS_ITS | Continuity of Care Document ---
Author Organization [facility] Address [address] [place] [address] [place] [address] Phone Care Team Providers Care Chemistry Specialist Name Role Phone Davion Can DO Unavailable Unavailable Advance Directives Directive Yes / No Effective Date File Name No Information Encounters Encounter Description Practice Location Reason(s) For Visit Diagnoses Date Provider Providers Copied on Encounter [facility], [address], [place], [place], [id number], [place] tel:[phone] [facility] No Information Pamella Burleson. [address] [place], [address], [place]. tel: [phone] Family History Family Member Type Diagnosis Age At Onset No Information Payers Payer name Insurance type Covered constitution party ID Authoriza tion(s) [facility] [id number] Social History Type Description Quantity Date Captured Comments Sex Female Smoking Status No Information Chief Complaint And Reason For Visit No Information Reason For Referral Reason For Referral No Information History Of Present Illness Encounter Date Complaint History Of Prese nt Illness No Information Functional Status Date Functional Assessmen t No Information Instructions Date Instruction Additional Infor mation No Information Assessments Type Assessment Date No Information Patient Care Teams Name Effective Dates (start - stop) Status Members No Information
--- NOTE | ~2025-03-28 | DEXA_ITS ---
Bone Density Report Name: JUAN JOSE PASTOR Age: 85 Sex: Female Ethnicity: White Date of : 1940 Indication: postmenopausal osteoporosis; monitoring treatment; height loss; Referring Provider: ROSA KING Study: Bone densitometry was performed. Exam Date: March 28, 2025 Accession number: [id number] Bone Density: Region BMD T-score Z-score Classification AP Spine(L1-L4) 0.863 -1.7 1.2 Osteopenia Femoral Neck (Left) 0.523 -2.9 -0.4 Osteoporosis Total Hip (Left) 0.720 -1.8 0.5 Osteopenia Femoral Neck (Right) 0.554 -2.7 -0.1 Osteoporosis Total Hip (Right) 0.631 -2.5 -0.2 Osteoporosis Total Hip Mean 0.676 -2.2 0.2 Osteopenia World Health Organization criteria for BMD impression classify patients as: Normal (T-score at or above -1.0), Osteopenia (T-score between -1.0 and -2.5), or Osteoporosis (T-score at or below -2.5). 10-year Fracture Risk: FRAX not reported because: Some T-score for Spine Total or Hip Total or Femoral Neck at or below -2.5 Treated for osteoporosis Previous Exams: Region Exam Age BMD T-score BMD Change BMD Change Date g/cm2 vs Baseline vs Previous AP Spine (L1-L4) 03/28/2025 85 0.863 -1.7 0.006 (0.8%) 0.006 (0.8%) 01/27/2024 83 0.857 -1.7 Total Hip(Left) 03/28/2025 85 0.720 -1.8 0.032 (4.6%)* 0.032 (4.6%)* 01/27/2024 83 0.688 -2.1 Total Hip(Right) 03/28/2025 85 0.631 -2.5 0.004 (0.6%) 0.004 (0.6%) 01/27/2024 83 0.627 -2.6 *Denotes significance at 95% confidence level, LSC for AP Spine = 0.022 g/cm2, LSC for Total Hip = 0.027 g/cm2 Clinical Information Provided by Patient: Is being treated for osteoporosis Has used the following medications: Prolia (i.e. denosumab), Vitamin D, Calcium Patient maximum height was 64.0 No regular weight bearing exercise Drinks caffeinated beverages Onset of menses at age 11 Number of children 2 Impression: The patient has osteoporosis, based on the Left Femoral Neck T-score. No significant bone loss was observed. Discussion: PATIENT UNDER TREATMENT WITH NO SIGNIFICANT BMD LOSS SINCE LAST EXAM. In an untreated patient, BMD typically declines with age. A lack of decline or gain is usually a sign that treatment is efficacious and fracture risk is reduced. It is important to ask patients whether they are taking their medications and to encourage continued and appropriate compliance with their osteoporosis therapies to reduce fracture risk. It is also important to review their risk factors and encourage appropriate calcium and vitamin D intakes, exercise, fall prevention and other lifestyle measures. Follow-Up: Consider a repeat BMD and Vertebral Fracture Assessment (VFA) exam in 2 years or sooner if medically necessary, to reassess this patient's status. Reported by: LUNA on 03/28/2025 3:35:00 PM. Reviewed, dictated and finalized at location A.
--- OUTSIDE RECORDS SUMMARY | 2025-03-28 15:34 | XMS_ITS | Clinical Summary ---
Author Organization [facility] Address [address] [address] Care Team Providers Care Global Cto Name Role Phone Unavailable Primary Care Provider Unavailabl e Source Comments [facility],non-owned Affiliates and Associated Physician Practices is amultiple site organization consisting of ambulatory clinics and hospital sitesin [place], [place], [place] and [place]. This disclosure is being madepursuant to the Care Everywhere program and may not contain all information available regarding this patient. Last updated 18.[facility] [employer] Allergies Active Allergy Reactions Criticality Noted Date [...] care, and heating? Not very hard 09/26/2023 [facility] [place] of Occupat ional Health - Occupational Stress [...] in a longterm (including now)? No 09/26/2023 Comments No Sex and Gender Information Value Date Recorded Sex Assigned at Not on file Legal Sex Female 5:23 AM ACCT EXEC Gender Identity Not on file Sexual Orientation [...] yrs (1 - 1-dose 75+ series) 2013 DEPRESSION SCREENING 06/22/2024 COVID-19 VACCINE (1 - 2023-2 5 season) 2025 INFLUENZA VACCINE (#1) 2025 HEPATITIS B VACCINE [...]
--- OUTSIDE RECORDS SUMMARY | 2025-03-28 15:34 | XMS_ITS | Encounter Summary ---
Author Organization [facility] Address [facility] [place] [address] Care Team Providers Care Chucking Machine Set Up Operator Tool Name Role Phone Vitor Tejada MD Primary Care Provider [phone] Encounter Details Date Type Department Care Team (Late st Contact Info) Description 03/14/2025 Hospital Orders Only [facility] Interventional Radiology [address] [place] [address] Kerrie Doss MD [address] [place] [id number] Social History Tobacco Use Types Packs/Day Years Used Date Smoking Tobacco: Never Assessed Comments Unknown Sex and Gender Information Value Date Recorded Sex Assigned at Female 03/14/2025 10:46 AM CDT Legal Sex Female 3:41 PM CDT Gender Identity Not on file Sexual Orientation Not on file documented as of this encounter Plan of Treatment Not on file documented as of this encounter Visit Diagnoses Not on filedocumented in this encounter Care Teams Chucking Machine Set Up Operator Tool Relationship Specialty Start Date End Date Vitor Tejada MD [address] [place] [address] PCP - General INTERNAL MEDICINE 03/14/25 documented as of this encounter
--- OUTSIDE RECORDS SUMMARY | 2025-03-28 15:34 | XMS_ITS | Clinical Summary ---
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 Gender Identity Not on file Sexual Orientation [...] 65+ 2003 Covid-19 Vaccine (4 - season) 2025 05/21/2021, 08/16/2020, 07/25/2020 Influenza Vaccine (#1) 2025 , 02/28/2020, 04/19/2019 Fall Risk Assessment 09/01/2025 09/01/2024 Hepatitis B Screening Completed 01/06/2002 , 09/24/2001, 07/14/2001 Medical Devices Explanted Type Area Studio Camera Operator Device Identifier Shelf Expiration Date Model / Serial / Lot Parathyroid Tissue Explanted:Qty: 1 on 08/30/2024 by Tyshawn Islas MD at [facility] Advanced Medicine N/A: Neck Other 09/13/2024 N/A / / Insurance MEDICARE FOR LIFE MEDICARE FOR LIFE MEDICARE FOR LIFE Advance Directives For more information, please contact: [phone] * Full Code (Latest Code Status on File) Date Activated Date Inactivated Comments 08/30/2024 9:49 PM 09/01/2024 11:10 PM Care Teams Journeyman Lineman Relationship Specialty Start Date End Date Radha Tolentino MD PCP - General Family Medicine 11/19/21 Vitor Tejada MD [address] [address] Referring Physician Internal Medicine 07/08/24
--- OUTSIDE RECORDS SUMMARY | 2025-03-28 15:34 | XMS_ITS | Clinical Summary ---
Author Organization [facility] Address [address] [place] [id number] Care Team Providers Care Lawn Sprinkler Installer Name Role Phone Vitor King MD Primary Care Provider Encounters Date Type Department Care Team Description 03/14/2025 10:54 AM CDT - 03/14/2025 11:59 PM CDT Hospital Encounter [facility] [address] Vitor King MD Discharge Disposition: Inpatient Rehab Facility 03/14/2025 Travel 03/14/2025 Hospital Orders Only [facility] [address] Kerrie Doss MD from Last 3 Months Social History Tobacco Use Types Packs/Day Years Used Date Smoking Tobacco: Never Assessed Comments Unknown Sex and Gender Information Value Date Recorded Sex Assigned at Female 03/14/2025 10:46 AM CDT Legal Sex Female 3:41 PM CDT Gender Identity Not on file Sexual Orientation Not on file Plan of Treatment Health Maintenance Due Date Last Done Comments Pneumococcal Vaccine: 50+ Years (1 of 1 - PCV) 1988 Zoster Vaccines (1 of 2) 1988 Annual Medicare Wellness Visit 2003 RSV Immunization or 60+ Years (1 - 1-dose 75+ series) 2013 DTaP, Tdap and Td Vaccines (1 - Tdap) 01/17/2022 01/16/2022 COVID-19 Vaccine ( season) 2025 02/26/2024, 04/16/2023, 03/31/2022, Additional history exists Influenza Adult (#1) 2025 02/13/2024, 04/16/2023, 04/03/2022, Additional history exists Meningococcal B Vaccine Aged Out No l onger eligible based on patient's age to complete this topic Meningococcal Vaccine Aged Out No carlos alberto anamika eligible based on patient's age to complete this topic RSV Immunizations Under 20 Months Aged Out No longer eligible based on patient's age to complete this topic Procedures Procedure Name Priority Date/Time Associated Diagnosis Comments US GD THYROID FINE NDL ASPIR Routine 03/14/2025 12:13 PM CDT Thyroid nodule CYTOLOGY GENERIC Routine 03/14/2025 12:0 0 AM CDT Thyroid nodule from Last 3 Months Results * US GD THYROID FINE NDL ASPIR (03/14/2025 12:13 PM CDT) Anatomical Region Laterality Modality Neck Ultrasound, Radi ographic Imaging 03/14/2025 12:0 5 PM CDT Impressions 03/14/2025 12:13 PM CDT =====IMPRESSION:===== Procedure note for left isthmic 1.2 cm nodule 25-gauge FNA performed with ultrasound guidance. Ordered By: VITOR KING Interpreted By: Kerrie Doss MD, 03/14/2025 12:05 PM Narrative 03/14/2025 12:13 PM CDT [address] [address] Procedure: Ultrasound guided thyroid fine-needle aspiration. Exam date/time: 03/14/2025 10:57 AM Indication: 84 female. Left isthmic thyroid nodule fine-needle aspiration tissue sample Comparison: Ultrasound thyroid 02/08/2025 Procedure and findings: Informed verbal and written consent was obtained from the patient/patient's medical power of regulatory attorney. The procedure was discussed including the rationale, alternatives, benefits and risks including but not limited to bleeding, infection and damage to adjacent structures. Patient was positioned supine on the stretcher. Initial survey ultrasound of the thyroid gland shows a left isthmic 1.2 cm isoechoic solid nodule with multiple echogenic foci. This was targeted for sampling. Timeout was performed. The patient's neck was prepped and draped in usual sterile fashion. 1% lidocaine was administered for local anesthesia. Multiple 25-gauge needle fine-needle aspiration (FNA) samples were acquired from the nodule under real-time ultrasound guidance. A total of 4 passes were made. Samples were collected and evaluated for adequacy by the gunstock spray unit feeder on site. A small sterile dressing was placed. Patient tolerated the procedure well. There were no immediate complications. Communications Equipment Installer: Dr. Doss Procedure Note Kerrie Doss MD - 03/14/[address] [address] Procedure: Ultrasound guided thyroid fine-needle aspiration. Exam date/time: 03/14/2025 10:57 AM Indication: 84 female. Left isthmic thyroid nodule fine-needle aspirationtissue sample Comparison: Ultrasound thyroid 02/08/2025 Procedure and findings: Informed verbal and written consent was obtained from thepatient/patient's medical power of regulatory attorney. The procedure was discussedincluding the rationale, alternatives, benefits and risks including butnot limited to bleeding, infection and damage to adjacent structures. Patient was positioned supine on the stretcher. Initial survey ultrasoundof the thyroid gland shows a left isthmic 1.2 cm isoechoic solid nodulewith multiple echogenic foci. This was targeted for sampling. Timeout was performed. The patient's neck was prepped and draped in usual sterile fashion. 1%lidocaine was administered for local anesthesia. Multiple 25-gauge needlefine-needle aspiration (FNA) samples were acquired from the nodule underreal-time ultrasound guidance. A total of 4 passes were made. Samples werecollected and evaluated for adequacy by the gunstock spray unit feeder on site. A small sterile dressing was placed. Patient tolerated the procedure well.There were no immediate complications. Communications Equipment Installer: Dr. Doss =====IMPRESSION:===== Procedure note for left isthmic 1.2 cm nodule 25-gauge FNA performed withultrasound guidance. Ordered By: VITOR KING Interpreted By: Kerrie Doss MD, 03/14/2025 12:05 PM us Vitor King MD ULTRASOUND Final Result * CYTOLOGY GENERIC (03/14/2025 12:00 AM CDT) CYTOLOGY OTHER [facility] Department of Laboratory Medicine [address] [place] [address] , extension [phone] Pathology Report FNA Cytology Report Name: LINETTE PASTOR Specimen #: [id number] Age: 10 1940 (Age: 84) Location: [facility] Sex: F Procedure Date: 03/14/2025 Hospital #: [id number] Date Received: 03/15/2025 Date Reported: 03/16/2025 Provider: VITOR KING MD Source: THYROID, ISTHMUS, FINE NEEDLE ASPIRATION Clinical History: Isthmus thyroid 1.2 cm FINAL DIAGNOSIS: Thyroid, isthmus, fine needle aspiration: -Satisfactory for evaluation -Negative for malignant cells -Consistent with a benign follicular nodule Gross Description: PASSES MADE: 3 (plus one additional pass for potential AFIRMA testing) SPECIMEN RECEIVED: 3 Diff-Quik slides, 3 alcohol-fixed slides SLIDES PREPARED: 6 smears, all slides microscopically examined by a pathologist STAINS: Papanicolaou, Diff-Quik Initial cytologic screening, interpretation, and sign out were performed at [facility], [address] [place] [address]. Intraoperative Diagnosis: Thyroid, isthmus, fine needle aspiration, immediate evaluation for adequacy: -Pass 1: adequate -Pass 2: adequate -Pass 3: adequate -Pass 4: AFIRMA Rapid on-site consultation performed by SAAD Dong (ASCP) at [facility], [address] [place] [address], [place] [address]. Electronically Signed Out CHRIS CRAMER MD [facility] 03/14/2025 03/15/2025 8:2 8 AM CDT Comment:THYROID, ISTHMUS, FI NE NEEDLE ASPIRATION us Vitor King MD PATHOLOGY/CYTOLOGY ORDERABLE S Final Result [facility] [address] [place] [address], [id number] from Last 3 Months Insurance MEDICARE [facility] Care Teams Lawn Sprinkler Installer Relationship Specialty Start Date End Date Vitor King MD [address] [place] [address] PCP - General INTERNAL MEDICINE 03/14/25
== END 2025-03-28 14:43 | disposition home or self-care (01) ==
LOC: ANHFOHIMG 14:43
PROVIDERS: PCP Family Medicine; Visit Provider Internal Medicine
DX: M81.0 Age-related osteoporosis without current pathological fracture (principal); E21.0 Primary hyperparathyroidism; E04.2 Nontoxic multinodular goiter
CPT/HCPCS: 77080